=== PATIENT | male | born 1980 | race Caucasian/White ===

== ENCOUNTER 2020-06-18 15:09 | Emergency (ER) | payer OTHER, SELFPAY ==
[2020-06-18 15:21] VITALS: BP 125/74; PULSE 82; RESP 18; TEMP 36.3; O2SAT 99
--- NOTE | 2020-06-18 15:35 | ED.GENADULT ---
HPI - General Adult General Chief complaint: Skin/Abscess/Foreign Body Stated complaint: Sunburn Time Seen by Provider: 06/18/20 15:35 Source: patient and RN notes reviewed Mode of arrival: ambulatory Limitations: no limitations History of Present Illness HPI narrative: 39-year-old male presents with complaints of diffused sunburn to upper and lower extremities and anterior and posterior trunk for the past 4 days. Blisters. No drainage. No loss of mobility. No foreign body sensation. Denies fever or chills. Tolerating po liquids well. No throat or tongue swelling. The patient reports he have not been diagnosed with COVID-19. The patient reports he is not waiting for the results of a COVID-19 lab test. The patient reports he do not have fever, chills, weakness, fatigue, myalgia, or facial swelling. The patient reports he do not have a new or worsening cough or shortness of breath. Denies chest pain. The patient reports he do not have any rhinorrhea, congestion, sore throat, nausea, vomiting, abdominal pain, and diarrhea. Denies recent traveling. Denies concerns for COVID-19 or exposures been home with limited outdoor exposure except for essential household needs, work, and return home. At this time, patient is not suspected of having COVID-19. Some parts of this dictation were generated by voice recognition software and may contain typographical and/or grammatical inaccuracies. Related Data Home Medications Medication Instructions Recorded Confirmed amoxicillin-pot clavulanate 1 tablet PO TID 06/18/20 06/18/20 aspirin 81 mg PO DAILY 06/18/20 06/18/20 diltiazem HCl 180 mg PO DAILY 06/18/20 06/18/20 isosorbide mononitrate 60 mg PO DAILY 06/18/20 06/18/20 lisinopril 40 mg PO DAILY 06/18/20 06/18/20 metoprolol succinate 50 mg PO DAILY 06/18/20 06/18/20 montelukast 10 mg PO DAILY 06/18/20 06/18/20 montelukast 10 mg PO HS 06/18/20 06/18/20 nortriptyline 25 mg PO DAILY 06/18/20 06/18/20 pantoprazole 40 mg PO DAILY 06/18/20 06/18/20 prednisone 10 mg PO DIRECTED 06/18/20 06/18/20 rosuvastatin 40 mg PO HS 06/18/20 06/18/20 ticagrelor [Brilinta] 60 mg PO BID 06/18/20 06/18/20 Allergies Allergy/AdvReac Type Severity Reaction Status Date / Time ibuprofen Allergy Mild Dyspnea / Verified 06/18/20 15:31 SOB morphine Allergy Unknown Unverified 06/18/20 15:31 Review of Systems Review of Systems: Narrative: CONSTITUTIONAL: Denies fever, chills, sweats. EYES: Denies visual changes, redness, discharge. ENT: Denies rhinorrhea, congestion, sore throat, otalgia. CARDIOVASCULAR: Denies chest pain, palpitations, edema. RESPIRATORY: Denies dyspnea, wheezing, cough. GASTROINTESTINAL: Denies abdominal pain, nausea, vomiting, diarrhea. GENITOURINARY: Denies dysuria, hematuria, abnormal discharge. SKIN: Denies rash or itching. Complains of diffused sunburn to upper and lower extremities and anterior and posterior trunk, blisters to RT shoulder and LLE. No drainage. MUSCULOSKELETAL: Denies acute back pain, joint pain, or myalgia. NEUROLOGIC: Denies numbness or focal weakness. PSYCHIATRIC: Denies anxiety or depression. All other systems reviewed are negative, except as documented in HPI and below. [facility] Past Medical History Medical History (Updated 06/19/20 @ 00:00 by Background Daemon) Chest pain Coronary artery disease History of gastroesophageal reflux (GERD) Hypercholesteremia Hypertension Surgical History Surgical History (Updated 06/18/20 @ 16:25 by JAX Rangel) History of cardiac catheterization History of coronary artery stent placement History of craniotomy 04/2020 Family History Family History (Updated 06/18/20 @ 16:23 by JAX Rangel) Father Hypertension Mother Hypertension Social History Social History (Updated 06/18/20 @ 16:23 by JAX Rangel) Smoking status: Never smoker Tobacco type: cigarettes Second hand tobacco smoke exposure: Yes Alcohol intake:
== END 2020-06-18 15:53 | disposition home or self-care (01) ==
PROVIDERS: Emergency Provider Nurse Practitioner Family
DX: L55.1 Sunburn of second degree (principal); I25.10 Atherosclerotic heart disease of native coronary artery without angina pectoris; I10 Essential (primary) hypertension; Z79.82 Long term (current) use of aspirin
CPT/HCPCS: 99213; G0463

== ENCOUNTER 2020-08-11 20:19 | Observation (INO) | payer OTHER, SELFPAY ==
--- NOTE | ~2020-08-11 | CT_ITS ---
EXAMINATION: CT brain wo con EXAM DATE: 08/12/2020 01:35 INDICATION: Dizziness, headache, nausea and vomiting. History of craniotomy 04/02. TECHNIQUE: Spiral CT of the head was performed without contrast. Axial, coronal and sagittal images were reviewed. The dose-length product (DLP) for this examination was 681.00 mGy-cm. The exposure w as tailored according to patient size, and iterative reconstruction (ASIR) was used as additional dos e reduction technique. Comparison is made to prior examination from 10/15/2015. FINDINGS: Interval partial right mastoidectomy. There is no acute intraparenchymal hemorrhage. No ev idence of intraparenchymal brain mass lesion. No evidence of acute infarction. There is no mass eff ect or midline shift. The ventricles are normal in size. There are no extra-axial collections. The re are no acute calvarial fractures. The orbits are unremarkable. Soft tissue is unremarkable. The visualized sinuses and mastoid air cells are well aerated. IMPRESSION: No acute intracranial findings. Reviewed, dictated and finalized at location A.
--- NOTE | ~2020-08-11 | XR_ITS ---
EXAMINATION: XR chest 2V DATE: 08/11/2020 21:45 INDICATION: Chest pain, nausea and vomiting TECHNIQUE: PA and lateral views of the chest were obtained. COMPARISON: Chest radiograph and CT dated 05/14/2019 FINDINGS: The lungs are clear with no focal airspace opacities, pulmonary edema, pleural effusion or pneumothor ax. The cardiomediastinal silhouette is normal. Coronary artery stenting. Mild S-shaped curvature of the thoracic spine. IMPRESSION: 1. No acute cardiopulmonary disease. Reviewed, dictated and finalized at location A.
[2020-08-11 20:21] VITALS: BP 149/99; PULSE 56; RESP 15; TEMP 36.2; O2SAT 100
--- NOTE | 2020-08-11 20:25 | ECG_ITS ---
Measurements Intervals [place] Rate: 64 P: 19 OR: 172 QRS: -11 QRSD: 92 T: -1 QT: 386 QTc: 398 Interpretive Statements SINUS RHYTHM VOLTAGE CRITERIA FOR LVH BORDERLINE T WAVE ABNORMALITY- INFERIOR LEADS BASELINE ARTIFACT- I, II, AVR, AVL, AVF, V1-V2 BORDERLINE ECG Electronically Signed On 08-11-2020 21:08:39 CDT by Roman Pinzon D.O.
[2020-08-11 20:41] LABS: Basophils Absolute Auto 0.1 K/mm3 (0.0-0.1); Basophils Percent Auto 1.1 % (0.2-1.2); Eosinophils Absolute Auto 0.2 K/mm3 (0-0.3); Hematocrit 43.7 % (42.0-52.0); Hemoglobin 15.2 g/dL (14.0-18.0); Immature Granulocyte Absolute 0.03 K/mm3 (0.00-0.031); Immature Granulocyte Percent A 0.4 % (0-0.5); Lymphocytes Absolute Auto 2.48 K/mm3 (0.9-3.2); Lymphocytes Percent Auto 31.5 % (18.3-44.2); Mean Corpuscular HGB Conc 34.8 g/dl (32-36); Mean Corpuscular Hemoglobin 32.5 pg (26-34); Mean Corpuscular Volume 93.6 fl (80-100); Mean Platelet Volume 8.5 fl (7.4-10.4); Monocytes Absolute Auto 0.6 K/mm3 (0.1-0.6); Neutrophils Absolute Auto 4.6 K/mm3 (1.3-6.7); Platelet Count Result 269 k/mm3 (150-375); Red Blood Count 4.67 M/mm3 (4.6-6.20); White Blood Count 7.9 K/mm3 (4.5-10.0)
[2020-08-11 20:50] LABS: INR 0.9
[2020-08-11 20:51] LABS: Partial Thromboplastin Time 25.9 SECONDS (22.3-36.8)
[2020-08-11 20:52] LABS: Anion Gap 6 mmol/L (8-16); Blood Urea Nitrogen 13 mg/dL (9-20); Calcium 9.3 mg/dL (8.4-10.2); Carbon Dioxide 30 mmol/L (22-30); Chloride 103 mmol/L (98-107); Estimated Glomerular Filt Rate > 60; Glucose 112 mg/dL (75-110); Lipase 120 U/L (23-300); Sodium 139 mmol/L (137-145)
[2020-08-11 21:04] LABS: Troponin I < 0.012 ng/mL (0.000-0.034)
[2020-08-11 23:00] VITALS: BP 151/102; PULSE 68; RESP 19; O2SAT 99
[2020-08-12] VITALS (9 sets, daily range): BP systolic 139–164; BP diastolic 89–109; PULSE 50–74; RESP 16–18; TEMP 36.1–36.4; O2SAT 99–100; BMI 36.1
[2020-08-12 00:49] LABS: Troponin I < 0.012 ng/mL (0.000-0.034)
--- NOTE | 2020-08-12 01:07 | ED.NAVMDI ---
HPI - Nausea/Vomiting/Diarrhea General Chief complaint: Nausea/Vomiting/Diarrhea Stated complaint: Nausea, Vomiting, Dizzy, High blood pressure Time Seen by Provider: 08/12/20 01:00 Source: RN notes reviewed History of Present Illness HPI Narrative: Patient presents emergency department from home for chest pain dizziness. Patient states approximate 5 PM today he developed dizziness with a sensation of the room spinning and felt off balance with the symptoms. He states that time he became nauseous as well as had chest pain over the left side of his chest. He states that the dizziness and nausea resolved after several hours but continued to have left-sided chest pressure. History of cardiac stents placed and is followed by Dr. King. States that he did feel mildly dizzy when coming back to the room today denies any fevers or chills vision changes shortness of breath vomiting or any other symptoms patient states he has been taking all of his regular daily medicines Related Data Home Medications Medication Instructions Recorded Confirmed aspirin 81 mg PO DAILY 06/18/20 06/18/20 diltiazem HCl 180 mg PO DAILY 06/18/20 06/18/20 isosorbide mononitrate 60 mg PO DAILY 06/18/20 06/18/20 lisinopril 40 mg PO DAILY 06/18/20 06/18/20 metoprolol succinate 50 mg PO DAILY 06/18/20 06/18/20 montelukast 10 mg PO HS 06/18/20 06/18/20 pantoprazole 40 mg PO DAILY 06/18/20 06/18/20 prednisone 10 mg PO DIRECTED 06/18/20 06/18/20 rosuvastatin 40 mg PO HS 06/18/20 06/18/20 ticagrelor [Brilinta] 60 mg PO BID 06/18/20 06/18/20 nortriptyline 25 mg PO DAILY 08/12/20 pantoprazole 40 mg PO QAM 08/12/20 rosuvastatin mg 08/12/20 Allergies Allergy/AdvReac Type Severity Reaction Status Date / Time ibuprofen Allergy Mild Dyspnea / Verified 06/18/20 15:31 SOB morphine Allergy Unknown Unverified 06/18/20 15:31 Review of Systems Review of Systems: Narrative: Gen.: Denies fevers or chills Eyes: Denies eye pain or visual change ENT: Denies congestion Respiratory: Denies shortness of breath or cough CV: See HPI GI: Denies abdominal pain emesis or diarrhea, reports nausea denies burning, urgency, frequency or hematuria Musculoskeletal: Denies back pain or muscle pain Neuro: Denies numbness, tingling, weakness or focal weakness, reports dizziness Skin: Denies rash Except as documented, all other systems reviewed and negative [facility] Past Medical History Medical History Chest pain Coronary artery disease History of gastroesophageal reflux (GERD) Hypercholesteremia Hypertension Surgical History Surgical History (Updated 06/18/20 @ 16:25 by JAX Rangel) History of cardiac catheterization History of coronary artery stent placement History of craniotomy 04/2020 Family History Family History (Updated 06/18/20 @ 16:23 by JAX Rangel) Father Hypertension Mother Hypertension Social History Social History Smoking status: Never smoker Tobacco type: cigarettes Second hand tobacco smoke exposure: Yes Alcohol intake: current Substance use: never Gender identity (if verbalized by the patient): Male Exam Narrative: Exam Narrative: APPEARANCE: No acute distress, nontoxic, resting in bed EYES: EOMI, Valarie HEENT: Normocephalic, atraumatic, TMs clear bilaterally, nares patent OMM RESPIRATORY: No respiratory distress Clear to auscultation bilaterally with no rhonchi wheezing or rales. CARDIOVASCULAR: Regular rate and rhythm without murmurs rubs or gallops. Chest: Tender palpation left anterior inferior chest wall ABDOMINAL: Soft, nontender, nondistended, no rebound or guarding MUSCULOSKELETAl: Moves all extremities. No clubbing, cyanosis or edema. NEURO: Awake and alert x 4. Following commands, speech normal, no focal deficits SKIN:: Warm, dry. No rashes lesions or abrasions PSYCHIATRIC: Normal affe
[2020-08-12] MEDS: MECLIZINE HCL 25 MG TABLET PO (01:47)
[2020-08-12] MEDS: ACETAMINOPHEN 500 MG TABLET 1000 MG PO (02:30)
[2020-08-12 03:28] LABS: Troponin I 0.021 ng/mL (0.000-0.034)
--- NOTE | 2020-08-12 05:58 | ADMGEN ---
This patient, Toño Hidalgo, was admitted to IMU Room 232-01. Patient/family oriented to hospital policies and general routines including ID bracelet, bed and alarms, visiting hours, pain management, procedures, bathroom and other care routines, personal items, smoking policy, room service/diet, and visiting hours. Valuables list has been completed. Information on how to activate the Rapid Response Team has been discussed. Patient/Family are encouraged to report perceived risks to care and to ask questions if they do not understand what they are told or what they should do.
--- NOTE | 2020-08-12 10:09 | ECHO_ITS ---
Patient Info Name: Toño Hidalgo Age: 39 years : 1980 Gender: Male Ht: 75 in Wt: 289 lbs BSA: 2.68 m2 HR: 60 bpm BP: 139 / 89 mmHg Heart Rhythm: Sinus Rhythm Technical Quality: Good Exam Date: 08/12/2020 12:10 PM Exam Location: [facility] Patient Status: Inpatient Admit Date: 08/12/2020 Staff Ordering Physician: Gerry King MD Source Water Protection Specialist: Rudy Thorne RDCS Attending Provider: Francisco Fay MD Referring Physician: Christine READ; Exam Type: CA echo dop color flow w con Study Info Indications I25.118 - Atherosclerotic heart disease of [place] coronary artery with other forms of angina pectoris Complete two-dimensional, color flow and Doppler transthoracic echocardiogram is performed with contrast to opacify the left ventricle and to improve the deliniation of the left ventricle endocardial borders. Contrast/Agitated Saline Contrast/Ag. Saline: Definity Amount: 3.00 ml Administered By: Nelly Vail RN Existing IV Access: Yes History/Risk Factors CAD; dizziness, HTN, chest pain. Summary 1. Left ventricular systolic function is normal, estimated at 55-60%. 2. There is mildly increased left ventricular wall thickness. 3. The left ventricular diastolic function is normal. 4. Right atrial chamber dimension is moderately enlarged. 5. There is trace mitral valve regurgitation. 6. There is trace tricuspid valve regurgitation. 7. No pulmonary hypertension, estimated pulmonary arterial systolic pressure is 27 mmHg. 8. Technically difficult study with limited views. Left Ventricle Left ventricular chamber dimension is normal. Left ventricular systolic function is normal, estimated at 55-60%. There is mildly increased left ventricular wall thickness. The left ventricular diastolic function is normal. Right Ventricle Right ventricular chamber dimension is normal. Right ventricular systolic function is normal. Left Atria Left atrial chamber dimension is mildly enlarged. Right Atria Right atrial chamber dimension is moderately enlarged. Aortic Valve The aortic valve is not well visualized. There is no aortic valve stenosis. There is no aortic valve regurgitation. Pulmonic Valve The pulmonic valve is not well visualized. Mitral Valve The mitral valve has normal leaflets. There is trace mitral valve regurgitation. The mitral valve annulus is mildly calcified. Tricuspid Valve The tricuspid valve leaflets are normal. There is trace tricuspid valve regurgitation. No pulmonary hypertension, estimated pulmonary arterial systolic pressure is 27 mmHg. Pericardium/Pleural The pericardium appears normal. There is trivial pericardial effusion. Inferior Vena Cava Normal inferior vena cava with >50% collapse upon inspiration consistent with normal right atrial pressure, 5 mmHg. Aorta The aortic root size at the sinus of Valsalva is normal. Left Ventricular Outflow Tract Name Value Normal LVOT 2D LVOT Diameter 2.28 cm LVOT Doppler LVOT Peak Gradient 4 mmHg
[2020-08-12 11:49] LABS: Troponin I 0.022 ng/mL (0.000-0.034)
--- NOTE | 2020-08-12 12:15 | PM.CNCAR ---
Assessment and Plan Assessment and plan (1) Vertigo: Code(s): R42 - Dizziness and giddiness Status: Acute Assessment and Plan: CT head negative. Symptoms resolved currently consistent with prior vertigo of which he has a history.. Defer to primary service (2) Nausea and vomiting: Code(s): R11.2 - Nausea with vomiting, unspecified Status: Acute Assessment and Plan: Resolved currently possibly related to vertigo sxs, uncontrolled HTN. (3) Chest pain: Code(s): R07.9 - Chest pain, unspecified Status: Acute Assessment and Plan: Somewhat atypical spontaneously resolved, ruled out for [place] with negative serial troponins. CP possibly anxiety related. No acute ischemic changes on EKG. No plans for ischemic workup. Last cath and stress test unremarkable, 05/2019. Continue aggressive medical therapy. Patient stable for discharge from this perspective provided his symptoms remain resolved. Will check 2D Echo given sxs at presentation. Patient will follow up as an outpatient provided no new issues noted on echocardiogram. Recommendations to follow. (4) Uncontrolled hypertension: Code(s): I10 - Essential (primary) hypertension Status: Acute Assessment and Plan: Improved but not ideally controlled. Hesitant to add hydrochlorothiazide given previous patient reported of control blood pressures in the 100-120 systolic range and risk for symptomatic hypotension. Patient would prefer to wait of possible other concerning given his presentation with uncontrolled hypertension. (5) Coronary artery disease: Code(s): I25.10 - Atherosclerotic heart disease of [place] coronary artery without angina pectoris Status: Acute Assessment and Plan: Continue aspirin, Brilinta 60 mg twice daily, Imdur, Rosuvastatin, and Toprol XL. (6) Dyslipidemia: Code(s): E78.5 - Hyperlipidemia, unspecified Status: Acute Assessment and Plan: Continue Rosuvastatin. Goal LDL less than 70. History of Present Illness History of Present Illness Consult date/time: date of service: 08/12/20 12:15 This is a cardiology consultation at the request of Dr. Starks of the Emergency Department for our opinion regarding chest pain and CAD. Requesting physician: Luis M Starks, Consult reason: chest pain and Other Reason For Visit: chest pain, dizziness Narrative: patient is a very pleasant 39-year-old male well known to me with past medical history significant forCAD status post 2.5 x 20 mm drug-eluting stent RCA, 3.5 x 24 mm drug-eluting stent mid LAD 2015, March 2016 2.5 x 12 mm drug-eluting stent proximal portion of major diagonal branch in setting of NSTEMI, patent stents left heart catheterization May 2019 history of chronic recurrent chest pain syndrome ultimately felt to be esophageal inflammation. He has a history of obesity, hypertension, dyslipidemia who was in his usual state of health when yesterday evening while walking up the steps he suddenly became dizzy described as a world spinning around him however consistent with his history of vertigo. He had an ENT surgery in the recent past and felt similarly at that time. he contacted his ENT who when he told that his blood pressure is 170/120 he is advised to contact his terminal gauger. Therefore, the patient contacted me through our emergency exchange to notify via his blood pressure and severe dizziness along with nausea vomiting. He denied chest pain, shortness of breath, headache or vision changes. Given persistence of the symptoms and the fact the patient claimed he did not feel well advised him to present to the ER for evaluation. The symptoms gradually subsided yet he notes as he was walking into the hospital he developed chest pain described as a stabbing sensation in the left chest without radiation giving way to a very mild pressure-like sensation which eventually dissipated. Ruled out for myocard
[2020-08-12] MEDS: PERFLUTREN LIPID MICROSPHERES 1.5 ML VIAL DILUTED TO 10 ML TOTAL VOLUME IV PUSH (12:47)
[2020-08-12] MEDS: ISOSORBIDE MONONITRATE 60 MG TAB.ER.24H PO (16:30)
[2020-08-12] MEDS: lisinopriL 20 MG TABLET 40 MG PO (16:30)
[2020-08-12] MEDS: TICAGRELOR 60 MG TABLET PO (16:30)
[2020-08-12] MEDS: METOPROLOL SUCCINATE EXT REL 50 MG TABCR PO (16:30)
[2020-08-12] MEDS: dilTIAZem HCL CD 180 MG CAP.ER.24H PO (16:31)
--- NOTE | 2020-08-12 16:32 | PM.SD ---
Same Day Admit/Disch: HPI History of Present Illness Chief complaint: chest pain, dizziness Narrative: Toño Hidalgo is a 39 year old male with CAD who presents with complaints of dizziness and chest pain. Patient felt tired yesterday. And in the evening while having a bowel movement, he felt dizzy with room spinning. He was not straining. He was able to walk back to his bed but had to hold onto furniture. He laid down and did feel better. He did not take any medications. His symptoms worsen when he got back up. His blood pressure was 170/120. He had no chest pain or vision changes. No numbness, tingling or weakness in his extremities. He is compliant with his home medications. He did have some nausea with vomiting. He does exercise frequently about 3 days a week and never has chest pain with this aerobic exercise. Patient has a history of recent right partial mastoidectomy. He called his ENT doctor who instructed him to call his vinyl hanger. Landfill Attendant in turn recommended patient go to the ER. Patient brought by private car to the emergency room. Patient was dropped off and when walking to the emergency room developed sharp type chest pain that he rates at 4 to 5/10. This pain felt similar to the time he has had coronary events. No recent stress test or heart catheterization. Last heart catheterization was a year ago. There is no radiation to the chest pain. The chest pain was not pleuritic or palpable. No cough or shortness of breath. No diaphoresis. No new medications. Patient was treated with meclizine and admitted for further care. Currently states his dizziness symptom has resolved. [facility] Past Medical History Medical History (Updated 08/12/20 @ 16:41 by Francisco Fay MD) Coronary artery disease History of gastroesophageal reflux (GERD) Hypercholesteremia Hypertension Surgical History Surgical History History of cardiac catheterization History of coronary artery stent placement History of craniotomy 04/2020 Family History Family History Father Hypertension Mother Hypertension Social History Social History (Updated 08/12/20 @ 16:42 by Francisco Fay MD) Social History: Lives at home with his and 2 children. They have a dog. Lifelong nonsmoker. Drinks 2-3 alcoholic drinks per week. No drug use. Full code. He nominates his to be the individual would make medical decisions for him if he is not able. Smoking status: Never smoker Tobacco type: cigarettes Second hand tobacco smoke exposure: Yes Alcohol intake: never Substance use: never Gender identity (if verbalized by the patient): Male Spiritual care concerns: No Same Day Admit/Disch: Med Pre-admit Medications Home Medications Medication Instructions Recorded Confirmed Type aspirin 81 mg PO DAILY 06/18/20 08/12/20 History diltiazem HCl 180 mg PO DAILY 06/18/20 08/12/20 History isosorbide mononitrate 60 mg PO DAILY 06/18/20 08/12/20 History lisinopril 40 mg PO DAILY 06/18/20 08/12/20 History metoprolol succinate 50 mg PO DAILY 06/18/20 08/12/20 History montelukast 10 mg PO HS 06/18/20 08/12/20 History pantoprazole 40 mg PO DAILY 06/18/20 08/12/20 History ticagrelor [Brilinta] 60 mg PO BID 06/18/20 08/12/20 History rosuvastatin 40 mg PO HS 08/12/20 08/12/20 History Exam Narrative: Exam Narrative: AF 97.6 158/93 71 16 100% ra Gen - well-nourished, well-developed male in no acute respiratory distress who is nontoxic-appearing lying semi recumbent in bed HEENT - normocephalic. Atraumatic. Pupils equal round and reactive. Extraocular motions intact. Sclera clear and anicteric. Nares patent. Oropharynx was clear. No oral lesions. Moist mucous membranes. Tongue was midline. Palate jeri symmetrically. No facial asymmetry. Neck - neck was supple. No dominant adenopathy, thyromegaly
== END 2020-08-12 18:02 | disposition home or self-care (01) ==
LOC: ANHED 08-12 01:27 → ANHIMU 08-12 05:08
PROVIDERS: Emergency Medicine; Internal Medicine Cardiovascular Disease; Admitting Provider Family Medicine; Emergency Provider Emergency Medicine; Visit Provider Internal Medicine
DX: R42 Dizziness and giddiness (principal); R07.9 Chest pain, unspecified; R11.2 Nausea with vomiting, unspecified; Z95.5 Presence of coronary angioplasty implant and graft; I25.10 Atherosclerotic heart disease of native coronary artery without angina pectoris; E78.00 Pure hypercholesterolemia, unspecified; I10 Essential (primary) hypertension; I51.7 Cardiomegaly; E78.5 Hyperlipidemia, unspecified
CPT/HCPCS: 36415; 70450; 71046; 80048; 83690; 84484; 85025; 85610; 85730; 93005; 96374; 99285; A9270; C8929; G0378; Q9957

== ENCOUNTER 2021-03-30 20:30 | Observation (INO) | payer OTHER, SELFPAY ==
[2021-03-30] VITALS (12 sets, daily range): BP systolic 140–158; BP diastolic 75–108; PULSE 67–93; RESP 15–23; TEMP 36.4; O2SAT 94–100
--- NOTE | ~2021-03-30 | XR_ITS ---
EXAMINATION: XR chest 2V DATE: 03/30/2021 20:52 INDICATION: Chest pain TECHNIQUE: PA and lateral views of the chest are obtained. COMPARISON: 08/11/2020 FINDINGS: The lungs are free of acute opacities. There is no pleural effusion or pneumothorax. The ca rdiomediastinal silhouette is normal. The visualized bones and soft tissues are unremarkable. IMPRESSION: 1. No acute cardiopulmonary abnormality. Reviewed, dictated and finalized at location A.
--- NOTE | ~2021-03-30 | CT_ITS ---
EXAMINATION: CTA chest DATE: 03/31/2021 00:42 INDICATION: Chest pain. TECHNIQUE: Computed tomographic angiography (CTA) of the chest was performed with 100 mL Omnipaque-35 0 intravenous contrast. Automated exposure control and iterative reconstruction technique were employ ed. The dose-length product was 1064.01 mGy-cm. Maximum intensity projection 3D-reconstructions of th e aorta and other arteries were constructed by the technologist on a separate workstation. COMPARISON: Chest CT 05/14/2019 FINDINGS: The lungs demonstrate minimal atelectasis. There is a stable 4 mm nodule in left upper lobe , likely benign. There are three 3-4 mm nodules in left lower lobe without change, likely benign. No pleural effusion. The heart size is normal. There are coronary artery calcifications. No pericardial effusion. Thoracic aorta is normal. No aneurysm or dissection. There is a small sliding hiatal hernia . The bones are unremarkable. IMPRESSION: 1. Normal aorta. No aneurysm or dissection. 2. Small sliding hiatal hernia. Reviewed, dictated and finalized at location A.
--- NOTE | 2021-03-30 20:33 | ECG_ITS ---
Measurements Intervals [place] Rate: 71 P: 13 NC: 173 QRS: 2 QRSD: 92 T: 28 QT: 352 QTc: 383 Interpretive Statements SINUS RHYTHM INCOMPLETE RIGHT BUNDLE BRANCH BLOCK VOLTAGE CRITERIA FOR LVH BORDERLINE ECG Electronically Signed On 03-31-2021 6:37:29 CDT by Roman Pinzon D.O.
[2021-03-30 20:56] LABS: Basophils Absolute Auto 0.1 K/mm3 (0.0-0.1); Basophils Percent Auto 0.8 % (0.2-1.2); Eosinophils Absolute Auto 0.1 K/mm3 (0-0.3); Eosinophils Percent Auto 1.6 % (0-4.4); Hemoglobin 15.3 g/dL (14.0-18.0); Immature Granulocyte Absolute 0.05 K/mm3 (0.00-0.031); Immature Granulocyte Percent A 0.6 % (0-0.5); Lymphocytes Absolute Auto 2.33 K/mm3 (0.9-3.2); Lymphocytes Percent Auto 26.2 % (18.3-44.2); Mean Corpuscular Hemoglobin 31.7 pg (26-34); Mean Corpuscular Volume 93.4 fl (80-100); Mean Platelet Volume 8.7 fl (7.4-10.4); Monocytes Absolute Auto 0.8 K/mm3 (0.1-0.6); Monocytes Percent Auto 8.4 % (2.6-8.5); Neutrophils Absolute Auto 5.6 K/mm3 (1.3-6.7); Neutrophils Percent Auto 62.4 % (45.5-73.1); Platelet Count Result 246 k/mm3 (150-375); Red Blood Count 4.82 M/mm3 (4.6-6.20); Red Cell Distribution Width 11.9 % (11.5-14.5); White Blood Count 8.9 K/mm3 (4.5-10.0)
[2021-03-30 21:07] LABS: INR 0.8; Prothrombin Time 12.1 Seconds (11.1-14.7)
[2021-03-30 21:08] LABS: Anion Gap 5 mmol/L (8-16); Blood Urea Nitrogen 14 mg/dL (9-20); Calcium 9.3 mg/dL (8.4-10.2); Carbon Dioxide 29 mmol/L (22-30); Chloride 104 mmol/L (98-107); Estimated CRCL calculation 118 ml/min; Estimated Glomerular Filt Rate > 60; Glucose 106 mg/dL (75-110); Partial Thromboplastin Time 25.2 SECONDS (22.3-36.8); Potassium 3.6 mmol/L (3.4-5.0); Sodium 138 mmol/L (137-145)
[2021-03-30 21:20] LABS: Troponin I < 0.012 ng/mL (0.000-0.034)
--- NOTE | 2021-03-30 22:19 | ED.CHESTPAIN ---
HPI - Chest Pain General Chief Complaint: Chest Pain Stated Complaint: chest pain Time Seen by Provider: 03/30/21 21:56 Source: patient and RN notes reviewed Mode of arrival: ambulatory Limitations: no limitations History of Present Illness HPI narrative: This is a 40 year old male with history of hypertension, CAD s/p stents 2015 who presents for evaluation of midsternal chest pressure. He states he developed midsternal chest pressure at 1 pm today. His pain has been constant and he describes as pressure. This pressure radiates to his back. His pain waxes and wanes. He reports shortness of breath. He denies cough, nausea, vomiting fever or chills. He states this pain feels similar to when he had to have stents. His cardiac care nurse is Dr. King. Related Data Home Medications Medication Instructions Recorded Confirmed Brilinta 60 mg PO BID 06/18/20 08/12/20 aspirin 81 mg PO DAILY 06/18/20 08/12/20 diltiazem HCl 180 mg PO DAILY 06/18/20 08/12/20 isosorbide mononitrate 60 mg PO DAILY 06/18/20 08/12/20 lisinopril 40 mg PO DAILY 06/18/20 08/12/20 metoprolol succinate 50 mg PO DAILY 06/18/20 08/12/20 montelukast 10 mg PO HS 06/18/20 08/12/20 pantoprazole 40 mg PO DAILY 06/18/20 08/12/20 rosuvastatin 40 mg PO HS 08/12/20 08/12/20 Allergies Allergy/AdvReac Type Severity Reaction Status Date / Time ibuprofen Allergy Mild Dyspnea / Verified 03/30/21 21:34 SOB morphine Allergy Unknown Dyspnea / Verified 03/30/21 21:34 SOB Review of Systems Review of Systems: All systems reviewed & are unremarkable except as noted in HPI and below PMFSH Past Medical History Medical History Coronary artery disease History of gastroesophageal reflux (GERD) Hypercholesteremia Hypertension Surgical History Surgical History History of cardiac catheterization History of coronary artery stent placement History of craniotomy 04/2020 Family History Family History Father Hypertension Mother Hypertension Social History Social History (Updated 08/12/20 @ 16:42 by Francisco Fay MD) Social History: Lives at home with his and 2 children. They have a dog. Lifelong nonsmoker. Drinks 2-3 alcoholic drinks per week. No drug use. Full code. He nominates his to be the individual would make medical decisions for him if he is not able. Smoking status: Never smoker Tobacco type: cigarettes Second hand tobacco smoke exposure: Yes Alcohol intake: never Substance use: never Gender identity (if verbalized by the patient): Male Spiritual care concerns: No Exam Const: General: no acute distress and alert Orientation/consciousness: patient oriented x3 Eyes: EOM: EOMs intact bilaterally Cardio: Rate: regular rate Rhythm: regular rhythm Heart sounds: no murmurs GI: GI Palp: Yes Soft to palpation, No Tenderness to palpation present (GI) and No Guarding due to palpation present (GI) Auscultation: normal bowel sounds Neuro: General: patient oriented x3, moves all extremities and CN's II-XI intact bilaterally Psych: Mental Status: mental status grossly normal Affect: normal affect Course Reevaluation(s) Reevaluation #1: I discussed with patient CT results. He is resting in bed in no acute distress. He has no complaints. Date: 03/31/21 Time: 02:25 Consultations Consultation #1: I Discussed case with Dr. Gallardo. She accepts patient observation for M I rule out. Date: 03/31/21 Time: 02:25 Vital Signs Vital signs: Vital Signs Temperature 97.5 F L 03/30/21 20:38 Pulse Rate 75 03/30/21 20:38 Respiratory Rate 18 03/30/21 20:38 Blood Pressure 153/108 H 03/30/21 20:38 Pulse Oximetry 100 03/30/21 20:38 Temperature 97.5 F L 03/30/21 23:32 Pulse Rate 71 03/31/21 00:46 Respiratory Rate 21 H 03/31/21 00
--- NOTE | 2021-03-30 22:20 | ECG_ITS ---
Measurements Intervals [place] Rate: 67 P: 33 [place]: 166 QRS: 1 QRSD: 102 T: 25 QT: 377 QTc: 401 Interpretive Statements SINUS RHYTHM INCOMPLETE RIGHT BUNDLE BRANCH BLOCK VOLTAGE CRITERIA FOR LVH BORDERLINE ECG Electronically Signed On 03-31-2021 6:38:07 CDT by Roman Pinzon D.O.
[2021-03-30] MEDS: ASPIRIN 81 MG CHEWABLE TABLET 324 MG PO (22:39)
[2021-03-30] MEDS: NITROGLYCERIN SL 0.4 MG TABLET SUBLINGUAL (22:40)
--- NOTE | 2021-03-30 22:46 | PC.NURSE ---
Patient received second dose of 0.4mg Nitro SL at this time per ED protocol. Patient reports pain is down to 3/10 from a 6/10. Reports headache.
--- NOTE | 2021-03-30 23:01 | PC.NURSE ---
Patient states pain was relieved after second dose of Nitro.
[2021-03-30 23:41] LABS: D Dimer 0.28 ug/mL (<0.48)
[2021-03-31] VITALS (20 sets, daily range): BP systolic 126–160; BP diastolic 70–100; PULSE 62–87; RESP 9–22; TEMP 36.5–36.6; O2SAT 94–98; BMI 38.9
[2021-03-31 00:12] LABS: Troponin I < 0.012 ng/mL (0.000-0.034)
[2021-03-31] MEDS: NITROGLYCERIN OINTMENT 1 INCH DOSE TRANSDERM (00:45)
--- NOTE | 2021-03-31 03:00 | PC.NURSE ---
Per EDEvi Kearney, no dose of Labetalol needed.
[2021-03-31 03:32] LABS: Troponin I < 0.012 ng/mL (0.000-0.034)
--- NOTE | 2021-03-31 10:03 | PM.CNCAR ---
Assessment and Plan Assessment and plan (1) Chest pain: Code(s): R07.9 - Chest pain, unspecified Status: Acute Assessment and Plan: Occurring at rest, constant for several hours without ischemic EKG changes and negative serial troponins but improved with nitroglycerin. No exacerbation with activity as he reports similar to prior anginal chest pain symptoms. No obstructive disease on left heart catheterization 2018. He is not interested in pursuing ischemic evaluation at this time and wishes to adjust medications even if related to obstructive CAD. As such he would prefer to avoid noninvasive stress testing at this time as well. He is currently asymptomatic without evidence of myocardial infarction. His chest pain syndrome in the past has been quite complicated with noncardiac contribution overlapping with ischemic sounding symptoms. Increase Imdur to 90 mg daily. Increase diltiazem 240 mg daily. On one occasion in the recent past patient presented with uncontrolled hypertension with associated chest pain improved with control of his blood pressure. In may be the case his blood pressure has been more elevated at times and he is aware. Nonetheless, will observe tolerance with escalation of antianginal therapy with an accordant improvement in blood pressure control. Patient verbalized understanding and agreed with plan of care. Telemetry unremarkable. Provided patient has no recurrent symptoms with ambulation, tolerates adjustment medical therapy he may be discharged home to follow up with me as an outpatient in the next 2 weeks. Avoid overly strenuous activity. Notify the office immediately should he have recurrent symptoms and or if severe and unrelenting present to nearest ER via EMS. We discussed additional ischemic workup if he has recurrent symptoms or new concerns. Patient agrees with this plan but understands he may have more symptoms in the near future. Patient also has a history of GERD on chronic Protonix 40 mg daily. He states the symptoms are different than his prior GERD and feels this has been under good control of late. Provided patient is feeling well and asymptomatic disposition per hospitalist service. Recommendations to follow should have recurrent chest pain. (2) Coronary artery disease: Code(s): I25.10 - Atherosclerotic heart disease of [place] coronary artery without angina pectoris Status: Acute Assessment and Plan: As above. Continue aggressive medical therapy. He remains on dual antiplatelet therapy given multiple previous stents and prior NSTEMI. Escalate antianginal therapy. Continue statin therapy. (3) Uncontrolled hypertension: Code(s): I10 - Essential (primary) hypertension Status: Acute Assessment and Plan: Improved. As above, increase Imdur and diltiazem as tolerated. (4) Dyslipidemia: Code(s): E78.5 - Hyperlipidemia, unspecified Status: Acute Assessment and Plan: Rosuvastatin 40 mg at bedtime. History of Present Illness History of Present Illness Consult date/time: Date service: 03/31/21 10:03 Cardiology consultation at the request of Dr. Kearney of the [facility] Emergency Department for our opinion regarding chest pain and history of CAD. Requesting physician: Gayle Kearney MD Consult reason: chest pain Reason For Visit: chest pain Narrative: Patient is a very pleasant 40-year-old male well known to me with a past medical history significant for CAD and remote myocardial infarction status post 2.5 x 20 mm drug-eluting stent RCA, 3.5 x 24 mm drug-eluting stent mid LAD 2015, March 2016 2.5 x 12 mm drug-eluting stent proximal portion of major diagonal branch in setting of NSTEMI He had patent stents on left heart catheterization May 2019 and a history of chronic recurrent chest pain syndrome ultimately felt to be esophageal inflammation. He has a history of obesity, hypertension, dyslipidemia who was in his us
[2021-03-31] MEDS: ASPIRIN 81 MG CHEWABLE TABLET PO (10:53)
[2021-03-31] MEDS: lisinopriL 20 MG TABLET 40 MG PO (10:54)
[2021-03-31] MEDS: PANTOPRAZOLE 40 MG TABLET PO (10:54)
[2021-03-31] MEDS: METOPROLOL SUCCINATE EXT REL 50 MG TABCR PO (10:54)
[2021-03-31] MEDS: ISOSORBIDE MONONITRATE 30 MG TAB.ER.24H 90 MG PO (10:55)
[2021-03-31] MEDS: TICAGRELOR 60 MG TABLET PO (10:55)
--- NOTE | 2021-03-31 18:26 | PM.SD2 ---
Same Day Admit/Disch: HPI History of Present Illness Chief complaint: chest pain Narrative: Toño Hidalgo is a 40 year old male admitted with chest pain pain in the center of the chest radiating to his back. 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 Came to hospital for evaluation. Troponin x3 are negative. Pt feels much better. Bp slightly high on admission, stable now. Pt denies missing medications.Pt responded to NTG. Pt seen by cardiology had Diltazem increased adviced to watch over his BP better. [facility] Past Medical History Medical History Coronary artery disease History of gastroesophageal reflux (GERD) Hypercholesteremia Hypertension Surgical History Surgical History History of cardiac catheterization History of coronary artery stent placement History of craniotomy 04/2020 Family History Family History Father Heart valve problem Malignant neoplasm of prostate Cerebrovascular accident Mother Hypertension Social History Social History Social History: Lives at home with his and 2 children. They have a dog. Lifelong nonsmoker. Drinks 2-3 alcoholic drinks per week. No drug use. Full code. He nominates his to be the individual would make medical decisions for him if he is not able. Smoking status: Never smoker Tobacco type: cigarettes Second hand tobacco smoke exposure: Yes Alcohol intake: current Drinks per week: 3 Substance use: never Substance use type: does not use Gender identity (if verbalized by the patient): Male Sexual Orientation (if Verbalized by the Patient): Straight or Heterosexual Spiritual care concerns: No Same Day Admit/Disch: Med Pre-admit Medications Home Medications Medication Instructions Recorded Confirmed Type Brilinta 60 mg PO BID 06/18/20 03/31/21 History aspirin 81 mg PO DAILY 06/18/20 03/31/21 History isosorbide mononitrate 60 mg PO DAILY 06/18/20 03/31/21 History lisinopril 40 mg PO DAILY 06/18/20 03/31/21 History metoprolol succinate 50 mg PO DAILY 06/18/20 03/31/21 History montelukast 10 mg PO HS 06/18/20 03/31/21 History pantoprazole 40 mg PO DAILY 06/18/20 03/31/21 History rosuvastatin 40 mg PO HS 08/12/20 03/31/21 History diltiazem HCl 240 mg PO DAILY #30 cap 03/31/21 Rx nortriptyline 25 mg PO HS 03/31/21 03/31/21 History Exam Const: General: well developed Nutritional Appearance: well nourished HENMT: Head: normocephalic Eyes: General: appearance normal, both eyes and all related structures Pupils: Equal, round and reactive pupils present Neck: Neck: supple Chest: Chest palpation & inspection: normal inspection of the chest Resp: Effort & Inspection: normal respiratory effort Auscultation: clear to auscultation bilaterally Cardio: Jugular venous distension: no JVD Rhythm: regular rhythm Heart sounds: S1 normal heart sound present and S2 normal heart sound present GI: Inspection: normal to inspection GI Palp: No abdominal tenderness, Yes Soft to palpation and No Tenderness to palpation present (GI) Auscultation: normal bowel sounds : General: Yes no CVA tenderness Back/Spine/Pelvis: Back: no CVA tenderness Skin: General skin exam: normal color and dry skin Neuro: Cranial nerves: Yes CN's II-XII intact bilaterally and Yes Equal, round and reactive pupils present Cognition (Neuro): normal cognition Speech: normal speech Motor exam (neuro): 5/5 motor strength present throughout Extrem: General: normal to inspection Psych: Appearance: grossly normal Mental Status: mental status grossly normal DS: Data Data Completed and Pending Labs on day of discharge: Labs from last 24 hours 03/31/21 03/30/21 03/30/21 02:45 23:41 20:48 WBC RBC Hgb Hct MCV MCH MCHC RDW
== END 2021-03-31 12:38 | disposition home or self-care (01) ==
LOC: ANHED 03-31 02:30 → ANHICU 03-31 12:06
PROVIDERS: Emergency Medicine; Admitting Provider Internal Medicine; Emergency Provider General Practice; Visit Provider Family Medicine
DX: R07.9 Chest pain, unspecified (principal); I10 Essential (primary) hypertension; I25.10 Atherosclerotic heart disease of native coronary artery without angina pectoris; R06.02 Shortness of breath; K21.9 Gastro-esophageal reflux disease without esophagitis; I25.2 Old myocardial infarction; E78.5 Hyperlipidemia, unspecified; E66.9 Obesity, unspecified; Z95.5 Presence of coronary angioplasty implant and graft; Z68.38 Body mass index [BMI] 38.0-38.9, adult
CPT/HCPCS: 36415; 71046; 71275; 80048; 84484; 85025; 85380; 85610; 85730; 93005; 99285; A9270; G0378; J0131; Q9967

== ENCOUNTER 2021-11-03 08:29 | Outpatient (CLI) | payer OTHER, SELFPAY ==
--- NOTE | ~2021-11-03 | XR_ITS ---
EXAMINATION: XR chest 2V 11/03/2021 08:56 INDICATION: Extremity swelling. Hypertension. Edema. PROCEDURE: 2 view chest COMPARISON: Comparison to multiple prior studies sequentially, with oldest reviewed study dated 07/31. FINDINGS: The lungs are clear. The cardiomediastinal silhouette is within normal limits. There are no pleural effusions. There is no pneumothorax suspected. IMPRESSION: 1: NO ACUTE CARDIOPULMONARY DISEASE. Reviewed, dictated and finalized at location A. [facility]
[2021-11-03 10:01] LABS: Alanine Aminotransferase 59 U/L (4-50); Albumin Level 4.6 g/dL (3.5-5.1); Alkaline Phosphatase 66 U/L (38-126); Anion Gap 8 mmol/L (8-16); Aspartate Amino Transferase 44 U/L (17-59); Bilirubin,Total 0.8 mg/dL (0.2-1.3); Blood Urea Nitrogen 13 mg/dL (9-20); Calcium 9.5 mg/dL (8.4-10.2); Carbon Dioxide 26 mmol/L (22-30); Chloride 101 mmol/L (98-107); Estimated Glomerular Filt Rate > 60; Glucose 100 mg/dL (65-110); Potassium 4.2 mmol/L (3.4-5.0); Sodium 135 mmol/L (137-145)
[2021-11-03 10:05] LABS: NT Pro B Type Natriuretic Pept 58 pg/mL (5-100)
== END 2021-11-03 08:30 | disposition home or self-care (01) ==
PROVIDERS: Visit Provider Nurse Practitioner Adult Health
DX: I25.10 Atherosclerotic heart disease of native coronary artery without angina pectoris (principal); R60.0 Localized edema; R03.0 Elevated blood-pressure reading, without diagnosis of hypertension
CPT/HCPCS: 36415; 71046; 80053; 83880; 85025

== ENCOUNTER 2021-11-20 20:59 | Emergency (ER) | payer OTHER, SELFPAY ==
[2021-11-20 21:14] VITALS: BP 150/80; PULSE 88; RESP 20; TEMP 36.6; O2SAT 98
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
[2021-11-20 21:35] VITALS: BP 149/80; PULSE 89; RESP 19; TEMP 37.2; O2SAT 99
== END 2021-11-20 21:38 | disposition home or self-care (01) ==
PROVIDERS: Emergency Provider Emergency Medicine
DX: T23.051A Burn of unspecified degree of right palm, initial encounter (principal); X12.XXXA Contact with other hot fluids, initial encounter
CPT/HCPCS: 99283

== ENCOUNTER → 2022-03-16 11:07 | Outpatient (CLI) | payer OTHER, SELFPAY ==
--- NOTE | ~2022-03-16 | XR_ITS ---
EXAMINATION: XR lumbar spine 2-3V DATE: 03/16/2022 11:53 INDICATION: Lumbar radiculopathy, low back pain TECHNIQUE: Anteroposterior and lateral views of the lumbar spine, and cone-down lateral view of the l umbosacral junction were obtained. COMPARISON: None. FINDINGS: There is no fracture, dislocation, or subluxation. The vertebral body heights, alignment, a nd intervertebral disc spaces are normal. The paravertebral soft tissues are unremarkable. IMPRESSION: 1. Unremarkable lumbar spine radiographs. Reviewed, dictated and finalized at location A.
== END ==
PROVIDERS: PCP Nurse Practitioner
DX: M54.2 Cervicalgia (principal)
CPT/HCPCS: 72100

== ENCOUNTER → 2022-03-16 11:10 | Outpatient (CLI) | payer OTHER, SELFPAY ==
--- NOTE | ~2022-03-16 | XR_ITS ---
EXAMINATION: XR hip LT min 2V DATE: 03/16/2022 11:53 INDICATION: Left hip pain. TECHNIQUE: 2 views of left hip were obtained. COMPARISON: None. FINDINGS: Bone alignment is normal. No fracture. There is a benign bone island in left parasymphyseal pubis. There is decreased femoral head/neck offset, which may be seen with femoral acetabular imping ement. Left hip joint space is well maintained. IMPRESSION: 1. No arthritis. Reviewed, dictated and finalized at location B. IMPRESSION: 1. No arthritis.
== END ==
PROVIDERS: PCP Nurse Practitioner; Visit Provider Nurse Practitioner
DX: M25.552 Pain in left hip (principal); M54.16 Radiculopathy, lumbar region
CPT/HCPCS: 73502

== ENCOUNTER → 2022-03-31 12:35 | Outpatient (CLI) | payer OTHER, SELFPAY ==
--- NOTE | ~2022-03-31 | XR_ITS ---
EXAMINATION: XR chest 2V DATE: 03/31/2022 13:27 INDICATION: Cough. TECHNIQUE: Frontal and lateral views of the chest were obtained. COMPARISON: Chest 2 views 11/03/2021, chest CT 03/31/2021 FINDINGS: The chest demonstrates clear lungs without pneumonia, pleural effusion, or pneumothorax. Th e heart size is normal. IMPRESSION: 1. No acute cardiopulmonary disease. Reviewed, dictated and finalized at location B.
== END ==
PROVIDERS: PCP Nurse Practitioner; Visit Provider Nurse Practitioner
DX: R05.9 Cough, unspecified (principal)
CPT/HCPCS: 71046

== ENCOUNTER 2022-04-02 13:54 | Outpatient (CLI) | payer OTHER, SELFPAY ==
--- NOTE | ~2022-04-02 | CT_ITS ---
EXAMINATION: CT diagnostic chest w con DATE: 04/02/2022 14:25 INDICATION: Cough TECHNIQUE: Computed tomography (CT) of the chest was performed without intravenous contrast. The dose -length product was 696.23 mGy-cm. COMPARISON: 03/31/2021 FINDINGS: Heart size normal. No significant vascular abnormality. No evidence for aortic aneurysm. No significant pleural or pericardial effusion. There is coronary atherosclerosis. Fatty infiltration o f the liver. No thoracic lymphadenopathy. No endobronchial lesions. No pneumothorax. There is a 2-3 m m left upper lobe nodule, likely benign, image 27. There is a 2 mm right lower lobe nodule, image 61. No acute osseous abnormality. No focal airspace di sease. IMPRESSION: 1. No acute cardiopulmonary disease. 2: Small pulmonary nodules measuring 3 mm or less, likely benign. Recommend follow-up low dose CT est in 12 months. Reviewed, dictated and finalized at location B. IMPRESSION: 1. No acute cardiopulmonary disease. 2: Small pulmonary nodules measuring 3 mm or less, likely benign. Recommend fo llow-up low dose CT chest in 12 months.
[2022-04-02 14:20] LABS: Estimated Glomerular Filt Rate > 60
== END 2022-04-02 13:55 | disposition home or self-care (01) ==
PROVIDERS: PCP Nurse Practitioner; Visit Provider Nurse Practitioner
DX: R05.9 Cough, unspecified (principal); R91.8 Other nonspecific abnormal finding of lung field
CPT/HCPCS: 71260; Q9967

== ENCOUNTER → 2022-05-07 12:41 | Outpatient (CLI) | payer OTHER, SELFPAY ==
--- NOTE | ~2022-05-07 | MR_ITS ---
EXAMINATION: MR lumbar spine wo/w con DATE: 05/07/2022 13:35 INDICATION: Lumbar radiculopathy TECHNIQUE: Magnetic resonance imaging (MRI) of the lumbar spine was performed without and with 20 mL Multihance intravenous contrast. Sequences included sagittal T2-weighted FSE, sagittal T2-weighted FS FSE, and sagittal and axial T1-weighted FSE. Postcontrast sequences included axial T2-weighted FSE, sagittal T1-weighted FSE, and axial and sagittal T1-weighted FS FSE. COMPARISON: None FINDINGS: Alignment is normal. Vertebral body heights are normal. S1 hemangioma. Otherwise normal marrow signal . Disc desiccation and minimal disc height loss at L4-L5. Annular fissure at L5-S1. The conus medulla ris terminates at L1-L2. There is normal signal in the caudal spinal cord. Paravertebral soft tissues are unremarkable. No abnormally enhancing lesions identified. The following disc levels are specific ally discussed: T12-L1 through L3-L4: The disc does not extend beyond the endplate margin. There is mild bilateral fa cet joint osteoarthritis. There is no neural foraminal stenosis. There is no central canal stenosis. L4-L5: Disc is minimally bulging with superimposed small left foraminal zone disc protrusion. There i s mild bilateral facet joint osteoarthritis. There is mild left and minimal right neural foraminal st enosis. There is no central canal stenosis. L5-S1: Disc is minimally bulging with annular fissure and small right foraminal zone disc protrusion. There is mild to moderate bilateral facet joint osteoarthritis. There is mild bilateral neural ahsan inal stenosis. There is no central canal stenosis. IMPRESSION: 1. Minimal to mild lower lumbar predominant spondylosis. Reviewed, dictated and finalized at location B.
[2022-05-07 13:11] LABS: Estimated Glomerular Filt Rate > 60
== END ==
PROVIDERS: PCP Nurse Practitioner; Visit Provider Nurse Practitioner
DX: M54.42 Lumbago with sciatica, left side (principal); M47.26 Other spondylosis with radiculopathy, lumbar region
CPT/HCPCS: 72158; A9577

== ENCOUNTER 2022-05-31 16:44 | Emergency (ER) | payer OTHER, SELFPAY ==
--- NOTE | ~2022-05-31 | XR_ITS ---
EXAMINATION: XR chest 1V portable Exam Date/Time: 05/31/2022 14:35 CDT HISTORY: weakness and sob Comparison: 03/31/2022. RESULT: Lines, tubes, and devices: None. Lungs and pleura: Clear. Cardiomediastinal silhouette: Stable cardiomediastinal silhouette. Other: No acute osseous or upper abdominal finding. IMPRESSION: No acute cardiopulmonary process. Reviewed, dictated and finalized at location K.
--- NOTE | ~2022-05-31 | CT_ITS ---
EXAMINATION: CT brain wo con DATE: 05/31/2022 17:43 INDICATION: CAM @ top of skull after fall . TECHNIQUE: Computed tomography (CT) of the head was performed without intravenous contrast. The mA wa s adjusted according to patient size. Iterative reconstruction technique was employed. The dose-lengt h product was 681.00 mGy-cm. COMPARISON: 08/12/2020 FINDINGS: No acute intracranial hemorrhage or extra-axial fluid collection. No hydrocephalus, mass, or herniation. No acute ischemic infarct. Unremarkable dural venous sinus attenuation. No acute osseous abnormality. The aerated spaces are clear. Prior right mastoid surgery. IMPRESSION: No acute intracranial process. Reviewed, dictated and finalized at location K.
[2022-05-31 16:56] VITALS: BP 153/107; PULSE 72; RESP 18; TEMP 36.5; O2SAT 98
--- NOTE | 2022-05-31 17:20 | ECG_ITS ---
Measurements Intervals [place] Rate: 67 P: -2 MD: 175 QRS: -14 QRSD: 94 T: 3 QT: 365 QTc: 387 Interpretive Statements SINUS RHYTHM INCOMPLETE RIGHT BUNDLE BRANCH BLOCK VOLTAGE CRITERIA FOR LVH BORDERLINE T WAVE ABNORMALITY- INFERIOR LEADS BORDERLINE ECG Electronically Signed On 05-31-2022 18:58:30 CDT by Roman Pinzon D.O.
--- NOTE | 2022-05-31 17:20 | ED.HEATRA ---
HPI - Head Injury General Chief complaint: Head Injury Stated complaint: head injury, nausea, confusion Time Seen by Provider: 05/31/22 16:48 Source: patient and RN notes reviewed Mode of arrival: wheelchair Limitations: no limitations History of Present Illness MD Complaint: head injury and fall Onset (ago): hour(s) (2) Mechanism of Injury: fall Place: home Loss of Consciousness: no Location of injury: occipital Severity: mild Severity scale (1-10): 4 Quality: dull and aching Other Injuries: none Context: on aspirin and other anticoagulant use Related Data Home Medications Medication Instructions Recorded Confirmed aspirin 81 mg chewable tablet 81 mg PO DAILY 06/18/20 05/31/22 isosorbide mononitrate 60 mg 60 mg PO DAILY 06/18/20 05/31/22 tablet,extended release 24 hr lisinopril 40 mg tablet 40 mg PO DAILY 06/18/20 05/31/22 metoprolol succinate 50 mg 50 mg PO DAILY 06/18/20 05/31/22 tablet,extended release 24 hr montelukast 10 mg tablet 10 mg PO HS 06/18/20 05/31/22 pantoprazole 40 mg tablet,delayed 40 mg PO DAILY 06/18/20 05/31/22 release rosuvastatin 40 mg tablet 40 mg PO HS 08/12/20 05/31/22 nortriptyline 25 mg capsule 25 mg PO HS 03/31/21 05/31/22 clopidogrel 75 mg tablet 75 mg PO DAILY 05/31/22 05/31/22 nebivolol 10 mg tablet (Bystolic) 10 mg PO DAILY 05/31/22 05/31/22 Allergies Allergy/AdvReac Type Severity Reaction Status Date / Time ibuprofen Allergy Mild Dyspnea / Verified 05/31/22 17:01 SOB morphine Allergy Unknown Dyspnea / Verified 05/31/22 17:01 SOB Review of Systems Review of Systems: All systems reviewed & are unremarkable except as noted in HPI and below Constitutional: Constitutional: Reports no additional constitutional complaints Eyes: Eyes: Reports no additional eye complaints Comments: head injury ENT: Reports system reviewed and no additional complaints, except as documented Cardiovascular: Cardiovascular: Reports no additional cardiovascular complaints Respiratory: Respiratory: Reports no additional respiratory complaints Gastrointestinal: Gastrointestinal: Reports no additional gastrointestinal complaints Musculoskeletal: Musculoskeletal: Reports no additional musculoskeletal complaints Integumentary/Breasts: Skin/Breast: Reports system reviewed and no additional complaints, except as docu Neurologic: Reports system reviewed and no additional complaints, except as documented Psychiatric: Psychiatric: Reports no additional psychiatric complaints Endocrine: Endocrine: Reports no additional endocrine complaints Hematologic/Lymphatic: Hematologic/Lymphatic: Reports no additional hematologic/lymphatic complaints Allergic/Immunologic: Allergic/Immunologic: Reports no additional allergic/immunologic complaints [facility] Past Medical History Medical History Coronary artery disease Head injury History of gastroesophageal reflux (GERD) Hypercholesteremia Hypertension Surgical History Surgical History History of cardiac catheterization History of coronary artery stent placement History of craniotomy 04/2020 Family History Family History Father Heart valve problem Malignant neoplasm of prostate Cerebrovascular accident Mother Hypertension Social History Social History Social History: Lives at home with his and 2 children. They have a dog. Lifelong nonsmoker. Drinks 2-3 alcoholic drinks per week. No drug use. Full code. He nominates his to be the individual would make medical decisions for him if he is not able. Smoking status: Never smoker Tobacco type: cigarettes Second hand tobacco smoke exposure: Yes Alcohol intake: current Drinks per week: 3 Substance use: never Substance use type: does not use G
[2022-05-31] MEDS: SODIUM CHLORIDE 0.9% IV 500 ML 999 ML IV CONT (18:00)
[2022-05-31] MEDS: cloNIDine HCL 0.2 MG TABLET PO (18:02)
[2022-05-31 18:05] LABS: Basophils Absolute Auto 0.09 K/mm3 (0.00-0.10); Eosinophils Absolute Auto 0.15 K/mm3 (0.02-0.50); Eosinophils Percent Auto 1.6 % (1.0-6.0); Hematocrit 44.7 % (40.0-54.0); Hemoglobin 15.6 g/dL (14.0-18.0); Immature Granulocyte Absolute 0.08 K/mm3 (0.00-0.00); Immature Granulocyte Percent A 0.9 % (0.0-0.0); Lymphocytes Percent Auto 29.1 % (18.0-42.0); Mean Corpuscular HGB Conc 34.9 g/dL (32.0-36.0); Mean Corpuscular Hemoglobin 31.9 pg (27.0-31.0); Mean Corpuscular Volume 91.4 fL (78.0-102.0); Mean Platelet Volume 8.5 fl (8.7-11.0); Monocytes Absolute Auto 0.84 K/mm3 (0.10-0.90); Monocytes Percent Auto 9.1 % (2.0-11.0); Neutrophils Absolute Auto 5.4 K/mm3 (1.7-7.2); Neutrophils Percent Auto 58.3 % (50.0-70.0); Platelet Count Result 280 K/mm3 (150-420); Red Blood Count 4.89 M/mm3 (4.70-6.10); Red Cell Distribution Width 11.9 % (11.6-14.4); White Blood Count 9.3 K/mm3 (4.8-10.8)
[2022-05-31 18:35] LABS: Alanine Aminotransferase 39 U/L (16-63); Albumin Level 3.9 g/dL (3.4-5.0); Alkaline Phosphatase 87 U/L (46-116); Anion Gap 7 mmol/L (8-16); Aspartate Amino Transferase 20 U/L (15-37); Bilirubin,Total 0.6 mg/dL (0.00-1.00); Blood Urea Nitrogen 15 mg/dL (7-18); Calcium 8.8 mg/dL (8.5-10.1); Carbon Dioxide 28 mmol/L (21-32); Chloride 103 mmol/L (98-108); Estimated Glomerular Filt Rate > 60; Ethanol < 3 mg/dL (0-6); Glucose 80 mg/dL (70-99); INR 0.9; Osmolality Calculated 285 mOsm/kg (285-295); Partial Thromboplastin Time 26.9 SEC (23.90-30.70); Potassium 3.7 mmol/L (3.5-5.1); Prothrombin Time 10.2 Seconds (9.50-12.10); Sodium 138 mmol/L (136-145); Total Protein 7.1 g/dL (6.4-8.2); Troponin I 9.5 ng/L (0.00-60.4)
[2022-05-31 18:42] LABS: Lactic Acid Reflex 0.5 mmol/L (0.4-2.0)
--- NOTE | 2022-05-31 18:42 | PC.NURSE ---
patient ambulatory to bathroom with steady gait.
[2022-05-31 18:54] LABS: Add Urine Microscopic? NO; Appearance Urine Clear (Clear); Bilirubin Urine Negative (Negative); Blood Urine Negative (Negative); Color Urine Light Yellow (Yellow); Glucose Urine UA Negative (Negative); Ketones Urine Negative (Negative); Leukocyte Esterase Ur Negative (Negative); Nitrate Urine Negative (Negative); Protein Urine Negative (Negative)
[2022-05-31 18:59] LABS: Amphetamine Screen Urine Negative (Negative); Barbiturate Screen Urine Negative (Negative); Benzodiazepines Screen Urine Negative (Negative); Cannabinoid Screen Urine Negative (Negative); Cocaine Screen Urine Negative (Negative); Methadone Screen Urine Negative (Negative); Opiate Screen Urine Negative (Negative); Phencyclidine Screen Urine Negative (Negative)
[2022-05-31 19:09] VITALS: BP 142/100; PULSE 63; RESP 18; TEMP 36.4; O2SAT 98
== END 2022-05-31 19:17 | disposition home or self-care (01) ==
PROVIDERS: Emergency Provider Emergency Medicine; PCP Nurse Practitioner
DX: S06.0X9A Concussion with loss of consciousness of unspecified duration, initial encounter (principal); W19.XXXA Unspecified fall, initial encounter; I25.10 Atherosclerotic heart disease of native coronary artery without angina pectoris; K21.9 Gastro-esophageal reflux disease without esophagitis; E78.00 Pure hypercholesterolemia, unspecified; I10 Essential (primary) hypertension; Z79.899 Other long term (current) drug therapy
CPT/HCPCS: 36415; 70450; 71045; 80053; 80307; 81003; 83605; 84484; 85025; 85610; 85730; 93005; 96360; 99284; A9270; J7040

== ENCOUNTER 2022-07-01 01:02 | Emergency (ER) | payer OTHER, SELFPAY ==
[2022-07-01] VITALS (28 sets, daily range): BP systolic 129–206; BP diastolic 78–118; PULSE 60–100; RESP 16–24; TEMP 36.3; O2SAT 93–99
--- NOTE | 2022-07-01 01:10 | ED.EPISTAXIS ---
HPI - Epistaxis General Chief complaint: Epistaxis <Irma Jensen PA-C - Last Filed: 07/01/22 02:29> Stated complaint: NOSE BLEED <Irma Jensen PA-C - Last Filed: 07/01/22 02:29> History of Present Illness HPI Narrative: 41 year old male with a history of HTN here for evaluation of atraumatic epistaxis tonight. Notes that his nose has been bleeding constantly for the past 2 hours without obvious trigger. He has attempted squeezing together his nostrils and also put in a tampon to the right nostril without relief of the bleeding. He states that he feels blood going down the back of his throat. Denies history of frequent nosebleeds, although he notes that he had a nosebleed 2 days ago that resolved after applying pressure. Denies nasal trauma. He takes aspirin and Plavix after he had a stent placed in 2014. He took his home BP meds today. He is otherwise asymptomatic; denies chest pain, shortness of breath, lightheadedness. <Irma Jensen PA-C - Last Filed: 07/01/22 02:29> Related Data Home medications: Home Medications Medication Instructions Recorded Confirmed aspirin 81 mg chewable tablet 81 mg PO DAILY 06/18/20 05/31/22 isosorbide mononitrate 60 mg 60 mg PO DAILY 06/18/20 05/31/22 tablet,extended release 24 hr lisinopril 40 mg tablet 40 mg PO DAILY 06/18/20 05/31/22 metoprolol succinate 50 mg 50 mg PO DAILY 06/18/20 05/31/22 tablet,extended release 24 hr montelukast 10 mg tablet 10 mg PO HS 06/18/20 05/31/22 pantoprazole 40 mg tablet,delayed 40 mg PO DAILY 06/18/20 05/31/22 release rosuvastatin 40 mg tablet 40 mg PO HS 08/12/20 05/31/22 nortriptyline 25 mg capsule 25 mg PO HS 03/31/21 05/31/22 clopidogrel 75 mg tablet 75 mg PO DAILY 05/31/22 05/31/22 nebivolol 10 mg tablet (Bystolic) 10 mg PO DAILY 05/31/22 05/31/22 <LANDON Echavarria Last Filed: 07/01/22 02:29> Allergies/adverse reactions: Allergies Allergy/AdvReac Type Severity Reaction Status Date / Time ibuprofen Allergy Mild Dyspnea / Verified 07/01/22 01:10 SOB morphine Allergy Unknown Dyspnea / Verified 07/01/22 01:10 SOB <Irma Jensen PA-C - Last Filed: 07/01/22 02:29> Review of Systems Review of Systems: Gen: Denies fevers or chills Eyes: Denies eye pain or visual change ENT: Reports epistaxis. Respiratory: Denies shortness of breath or cough CV: Denies chest pain or palpitations GI: Denies abdominal pain nausea, emesis or diarrhea : denies burning, urgency, frequency or hematuria Musculoskeletal: Denies back pain or muscle pain Neuro: Denies numbness, tingling, weakness or focal weakness Skin: Denies rash Except as documented, all other systems reviewed and negative <LANDON Echavarria Last Filed: 07/01/22 02:29> [facility] Past Medical History Medical History: Medical History Coronary artery disease Head injury History of gastroesophageal reflux (GERD) Hypercholesteremia Hypertension <LANDON Echavarria Last Filed: 07/01/22 02:29> Surgical History Surgical History: Surgical History History of cardiac catheterization History of coronary artery stent placement History of craniotomy 04/2020 <LANDON Echavarria Last Filed: 07/01/22 02:29> Family History Family History: Family History Father Heart valve problem Malignant neoplasm of prostate Cerebrovascular accident Mother Hypertension <LANDON Echavarria Last Filed: 07/01/22 02:29> Social History Social History: Social History Social History: Lives at home with his and 2 children. They have a dog. Lifelong nonsmoker. Drinks 2-3 alcoholic drinks per week. No drug use. Full code. He nominates his to be
[2022-07-01] MEDS: cloNIDine HCL 0.1 MG TABLET PO (02:00)
--- NOTE | 2022-07-01 02:55 | PC.NURSE ---
nose began bleeding agan while pt outside waiting for ride. returned back to ed room 1. md present to assess bleeding
--- NOTE | 2022-07-01 03:37 | PC.NURSE ---
Pt was D/C per CRISTINA Solis.While pt was in ED lobby waiting for ride home, patient's nose started to bleed again and was assisted back to EDbed 1, where DR. Piper took over pt care.
[2022-07-01 04:39] LABS: Basophils Absolute Auto 0.1 K/mm3 (0.0-0.1); Basophils Percent Auto 1.1 % (0.2-1.2); Eosinophils Absolute Auto 0.2 K/mm3 (0-0.3); Eosinophils Percent Auto 1.3 % (0-4.4); Hematocrit 46.4 % (42.0-52.0); Hemoglobin 16.3 g/dL (14.0-18.0); Immature Granulocyte Absolute 0.12 K/mm3 (0.00-0.031); Lymphocytes Absolute Auto 3.75 K/mm3 (0.9-3.2); Lymphocytes Percent Auto 31.6 % (18.3-44.2); Mean Corpuscular HGB Conc 35.1 g/dl (32-36); Mean Platelet Volume 8.6 fl (7.4-10.4); Monocytes Absolute Auto 1.2 K/mm3 (0.1-0.6); Monocytes Percent Auto 10.3 % (2.6-8.5); Neutrophils Absolute Auto 6.5 K/mm3 (1.3-6.7); Neutrophils Percent Auto 54.7 % (45.5-73.1); Platelet Count Result 305 k/mm3 (150-375); Red Cell Distribution Width 12.2 % (11.5-14.5); White Blood Count 11.9 K/mm3 (4.5-10.0)
[2022-07-01 05:00] LABS: INR 0.9
[2022-07-01 05:01] LABS: Partial Thromboplastin Time 25.7 SECONDS (22.3-36.8)
[2022-07-01] MEDS: OXYMETAZOLINE HCL 0.05% NAS 15 ML BTL (*BKC) 2 SPRAY NASAL (05:01)
[2022-07-01 05:38] LABS: Alanine Aminotransferase 49 U/L (6-50); Albumin Level 4.7 g/dL (3.5-5.1); Alkaline Phosphatase 75 U/L (38-126); Anion Gap 11 mmol/L (8-16); Aspartate Amino Transferase 46 U/L (17-59); Bilirubin,Total 0.5 mg/dL (0.2-1.3); Blood Urea Nitrogen 16 mg/dL (9-20); Calcium 9.3 mg/dL (8.4-10.2); Carbon Dioxide 25 mmol/L (22-30); Chloride 103 mmol/L (98-107); Estimated CRCL calculation 128 ml/min; Estimated Glomerular Filt Rate > 60; Glucose 108 mg/dL (65-110); Potassium 4.3 mmol/L (3.4-5.0); Sodium 139 mmol/L (137-145)
--- NOTE | 2022-07-01 07:08 | PC.NURSE ---
Shift report given to CON Urrutia.
--- NOTE | 2022-07-01 07:49 | WPDCN ---
Assessment and Plan Assessment and plan (1) Epistaxis: Code(s): R04.0 - Epistaxis Status: Acute Plan Significant right epistaxis secondary to anticoagulatoin. Required bilateral packing. No longer bleeding. Recommend removal on Tuesday, he will call my office to arrange follow up for that day. 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 Precautions given to patient in case he has further bleeding. HPI Data of Consult Date/Time: 07/01/22 07:49 Primary Care Provider: Betty Soriano, [facility] Consult Narrative Reason for consult: epistaxis Narrative: Toño Hidalgo is a 41 year old male known to me on plavix/ASA who had bleeding over the weekend intermittently and then came to the ER overnight with a heavy right nose bleed that didn't easily stop. ER team packed him with rhinorocket, afrin and I was asked to come see him. On interview in the ER this morning he had finally stopped bleeding. Review of Systems Review of Systems: All systems reviewed & are unremarkable except as noted in HPI and below PMFSH Past Medical History Medical History Coronary artery disease Head injury History of gastroesophageal reflux (GERD) Hypercholesteremia Hypertension Surgical History Surgical History History of cardiac catheterization History of coronary artery stent placement History of craniotomy 04/2020 Family History Family History Father Heart valve problem Malignant neoplasm of prostate Cerebrovascular accident Mother Hypertension Social History Social History Social History: Lives at home with his and 2 children. They have a dog. Lifelong nonsmoker. Drinks 2-3 alcoholic drinks per week. No drug use. Full code. He nominates his to be the individual would make medical decisions for him if he is not able. Smoking status: Never smoker Tobacco type: cigarettes Second hand tobacco smoke exposure: Yes Alcohol intake: current Drinks per week: 3 Substance use: never Substance use type: does not use Gender identity (if verbalized by the patient): Male Sexual Orientation (if Verbalized by the Patient): Straight or Heterosexual Spiritual care concerns: No Meds Home Medications and Allergies Home Medications Medication Instructions Recorded Confirmed Type aspirin 81 mg chewable tablet 81 mg PO DAILY 06/18/20 05/31/22 History isosorbide mononitrate 60 mg 60 mg PO DAILY 06/18/20 05/31/22 History tablet,extended release 24 hr lisinopril 40 mg tablet 40 mg PO DAILY 06/18/20 05/31/22 History metoprolol succinate 50 mg 50 mg PO DAILY 06/18/20 05/31/22 History tablet,extended release 24 hr montelukast 10 mg tablet 10 mg PO HS 06/18/20 05/31/22 History pantoprazole 40 mg tablet,delayed 40 mg PO DAILY 06/18/20 05/31/22 History release rosuvastatin 40 mg tablet 40 mg PO HS 08/12/20 05/31/22 History diltiazem HCl 240 mg 240 mg PO DAILY #30 caps 03/31/21 05/31/22 Rx capsule,extended release 24 hr, controlled nortriptyline 25 mg capsule 25 mg PO HS 03/31/21 05/31/22 History clopidogrel 75 mg tablet 75 mg PO DAILY 05/31/22 05/31/22 History nebivolol 10 mg tablet (Bystolic) 10 mg PO DAILY 05/31/22 05/31/22 History cephalexin 500 mg capsule 500 mg PO Q8H 7 days #21 caps 07/01/22 Rx Allergies Allergy/AdvReac Type Severity Reaction Status Date / Time ibuprofen Allergy Mild Dyspnea / Verified 07/01/22 01:10 SOB morphine Allergy Unknown Dyspnea / Verified 07/01/22 01:10 SOB Vital Signs Vital Signs - 24 hr 07/01/22 01:05 07/01/22 01:30 07/01/22 01:45 Temperature 36.3 C L Pulse Rate 100 94 85 Respiratory Rate 20 20 18 Blood Pressure 206/118 H 202/115 H 186/105 H Pulse Oximetry 97 94 94 Oxygen Delivery Room Air
--- NOTE | 2022-07-01 08:14 | PC.NURSE ---
Pt bleeding from right nare. States he started bleeding after the ENT left. ERP aware and has called ENT to see pt again.
--- NOTE | 2022-07-01 08:40 | PC.NURSE ---
ent Dr. Quiroz at bedside.
--- NOTE | 2022-07-01 08:45 | PC.NURSE ---
Dr. Quiroz at bedside.
--- NOTE | 2022-07-01 10:27 | PC.NURSE ---
Remains without bleeding from nose.
== END 2022-07-01 10:30 | disposition home or self-care (01) ==
PROVIDERS: Emergency Provider Emergency Medicine; PCP Nurse Practitioner
DX: R04.0 Epistaxis (principal); D68.32 Hemorrhagic disorder due to extrinsic circulating anticoagulants; T45.525A Adverse effect of antithrombotic drugs, initial encounter; I10 Essential (primary) hypertension; I25.10 Atherosclerotic heart disease of native coronary artery without angina pectoris; E78.00 Pure hypercholesterolemia, unspecified; K21.9 Gastro-esophageal reflux disease without esophagitis; Z95.5 Presence of coronary angioplasty implant and graft; Z79.82 Long term (current) use of aspirin; Z79.02 Long term (current) use of antithrombotics/antiplatelets
CPT/HCPCS: 30903; 36415; 80053; 85025; 85610; 85730; 99283; A9270

== ENCOUNTER 2022-11-02 15:22 | Observation (INO) | payer OTHER, SELFPAY ==
[2022-11-02] VITALS (15 sets, daily range): BP systolic 153–172; BP diastolic 90–112; PULSE 61–76; RESP 16–23; TEMP 35.9–36.7; O2SAT 95–99; BMI 40.2
--- NOTE | ~2022-11-02 | NM_ITS ---
EXAMINATION: NM stress w perf spect multi INDICATION: Chest pain, coronary artery disease TECHNIQUE: Rest images were obtained following intravenous administration of 9.9 mCi Tc99m tetrofosmi n ([employer]). The patient performed an exercise activity. At peak exercise, 34.5 mCi Tc99m tetrofosmin (Myoview) was administered intravenously, and stress images were obtained. Data was reconstructed in to short axis and horizontal and vertical long axis SPECT images. Gated SPECT images were also obtain ed. COMPARISON: None. FINDINGS: There is no definite reversible or fixed perfusion abnormality to suggest ischemia or infar ction. There is no segmental wall motion abnormality. Left ventricular ejection fraction measures 7 7%. IMPRESSION: No definite ischemia or infarct. Normal left ventricular ejection fraction measuring 77%. Reviewed, dictated and finalized at [facility]. TING PRESSMAN
--- NOTE | ~2022-11-02 | XR_ITS ---
Clinical Indication: Chest pain PA and lateral views of the chest: Comparison: 05/31/2022 Findings: The lungs are clear, without evidence of focal consolidation or pleural effusion. Cardiome diastinal silhouette is within normal limits. Bones and soft tissues are unremarkable. Impression: Normal chest. Reviewed, dictated and finalized at location . RY SHEAR CUTTER Impression: Normal chest.
--- NOTE | 2022-11-02 15:29 | ECG_ITS ---
Measurements Intervals [place] Rate: 71 P: 13 VT: 175 QRS: -9 QRSD: 113 T: 29 QT: 380 QTc: 414 Interpretive Statements SINUS RHYTHM MODERATE INTRAVENTRICULAR CONDUCTION DELAY [110+ ms QRS DURATION] MODERATE VOLTAGE CRITERIA FOR LVH, CONSIDER NORMAL VARIANT [MEETS CRITERIA IN ONE OF: R(aVL), S(V1), R(V5), R(V5/V6)+S(V1)] ABNORMAL ECG COMPARED TO ECG 05/31/2022 17:48:42 INTRAVENTRICULAR CONDUCTION DELAY NOW PRESENT Electronically Signed On 11-02-2022 15:37:49 [employer] by Panda Tate M.D.
[2022-11-02 15:45] LABS: Basophils Absolute Auto 0.1 K/mm3 (0.0-0.1); Eosinophils Absolute Auto 0.2 K/mm3 (0-0.3); Eosinophils Percent Auto 1.9 % (0-4.4); Hematocrit 47.2 % (42.0-52.0); Hemoglobin 16.7 g/dL (14.0-18.0); Immature Granulocyte Absolute 0.03 K/mm3 (0.00-0.031); Immature Granulocyte Percent A 0.3 % (0-0.5); Lymphocytes Absolute Auto 2.79 K/mm3 (0.9-3.2); Lymphocytes Percent Auto 29.5 % (18.3-44.2); Mean Corpuscular HGB Conc 35.4 g/dl (32-36); Mean Corpuscular Hemoglobin 31.9 pg (26-34); Mean Corpuscular Volume 90.1 fl (80-100); Mean Platelet Volume 8.6 fl (7.4-10.4); Monocytes Absolute Auto 0.7 K/mm3 (0.1-0.6); Monocytes Percent Auto 7.6 % (2.6-8.5); Neutrophils Absolute Auto 5.7 K/mm3 (1.3-6.7); Neutrophils Percent Auto 59.7 % (45.5-73.1); Platelet Count Result 273 k/mm3 (150-375); Red Blood Count 5.24 M/mm3 (4.6-6.20); White Blood Count 9.5 K/mm3 (4.5-10.0)
[2022-11-02 15:55] LABS: Alanine Aminotransferase 56 U/L (6-50); Albumin Level 4.5 g/dL (3.5-5.1); Alkaline Phosphatase 78 U/L (38-126); Anion Gap 6 mmol/L (8-16); Aspartate Amino Transferase 46 U/L (17-59); Bilirubin,Total 0.6 mg/dL (0.2-1.3); Blood Urea Nitrogen 15 mg/dL (9-20); Calcium 8.9 mg/dL (8.4-10.2); Carbon Dioxide 26 mmol/L (22-30); Chloride 103 mmol/L (98-107); Estimated CRCL calculation 144 ml/min; Estimated Glomerular Filt Rate > 60; Glucose 148 mg/dL (65-110); Lipase 127 U/L (23-300); Potassium 3.5 mmol/L (3.4-5.0); Sodium 135 mmol/L (137-145)
[2022-11-02 15:57] LABS: Prothrombin Time 12.7 Seconds (11.1-14.7)
[2022-11-02 16:07] LABS: Troponin I < 0.012 ng/mL (0.000-0.034)
--- NOTE | 2022-11-02 17:01 | ED.CHESTPAIN ---
HPI - Chest Pain General Chief Complaint: Chest Pain Stated Complaint: neck and jaw pain Time Seen by Provider: 11/02/22 16:58 Source: patient Mode of arrival: ambulatory Limitations: no limitations History of Present Illness HPI narrative: Patient is a 42-year-old male with a history of hypertension, dyslipidemia, coronary artery disease presenting for evaluation of chest pain that has occurred at rest and with exertion. Patient reports chest pain that is a pressure in nature over the center of his chest with radiation to the middle back, left side of neck, jaw and left shoulder. Patient states he had associated mild nausea without diaphoresis or lightheadedness. He reports worsening of symptoms with exertion as well as shortness of breath with exertion. Patient reports that he travels by car frequently with long car rides but has no history of blood clot. Patient was previously on Brilinta but then had that discontinued secondary to insurance constraints, that was placed on Plavix and that was discontinued due to recurrent bleeding. Patient is unsure of his anticoagulation regimen at this point. He denies leg swelling or calf pain. No leg redness. He does report pleuritic pain. He denies cough or hemoptysis. Pain is currently mild in nature but present. It is improved from previously. Reviewed the patient's chart with visits in the past for recurrent epistaxis secondary to anticoagulation as well as cardiology notes.? He has a history of stent placement in the past includin.5 x 20 mm drug-eluting stent RCA, 3.5 x 24 mm drug-eluting stent? mid LAD 2015, March 2016 2.5 x 12 mm drug-eluting stent proximal portion of major diagonal branch. Last admission, noninvasive measures were done, last heart catheterization 2019 Related Data Home Medications Medication Instructions Recorded Confirmed aspirin 81 mg chewable tablet 81 mg PO DAILY 06/18/20 05/31/22 isosorbide mononitrate 60 mg 60 mg PO DAILY 06/18/20 05/31/22 tablet,extended release 24 hr lisinopril 40 mg tablet 40 mg PO DAILY 06/18/20 05/31/22 metoprolol succinate 50 mg 50 mg PO DAILY 06/18/20 05/31/22 tablet,extended release 24 hr montelukast 10 mg tablet 10 mg PO HS 06/18/20 05/31/22 pantoprazole 40 mg tablet,delayed 40 mg PO DAILY 06/18/20 05/31/22 release rosuvastatin 40 mg tablet 40 mg PO HS 08/12/20 05/31/22 nortriptyline 25 mg capsule 25 mg PO HS 03/31/21 05/31/22 clopidogrel 75 mg tablet 75 mg PO DAILY 05/31/22 05/31/22 nebivolol 10 mg tablet (Bystolic) 10 mg PO DAILY 05/31/22 05/31/22 Allergies Allergy/AdvReac Type Severity Reaction Status Date / Time ibuprofen Allergy Mild Dyspnea / Verified 11/02/22 17:02 SOB morphine Allergy Unknown Dyspnea / Verified 11/02/22 17:02 SOB Review of Systems Review of Systems: CONSTITUTIONAL: Denies fever, chills, or sweats. ENT: Denies rhinorrhea, congestion, sore throat, or otalgia. CARDIOVASCULAR: Reports chest pain without palpitations or edema RESPIRATORY: Denies cough, reports dyspnea with exertion GASTROINTESTINAL: Denies abdominal pain, nausea, vomiting, or diarrhea. GENITOURINARY: Denies dysuria or hematuria. SKIN: Denies rash or itching. MUSCULOSKELETAL: Denies back pain, joint pain, or myalgia. NEUROLOGIC: Denies headache, numbness, or weakness. [facility] Past Medical History Medical History Coronary artery disease Head injury History of gastroesophageal reflux (GERD) Hypercholesteremia Hypertension Surgical History Surgical History History of cardiac catheterization History of coronary artery stent placement History of craniotomy 04/2020 Family History Family History Father Heart valve problem Malignant neoplasm of prostate Cerebrovascular accident Mother Hypertension Social History Social History (Reviewed
[2022-11-02 18:11] LABS: NT Pro B Type Natriuretic Pept 26 pg/mL (5-100)
[2022-11-02 18:17] LABS: D Dimer 0.33 ug/mL (<0.48)
[2022-11-02] MEDS: ONDANSETRON INJ 4 MG/2 ML VIAL IV PUSH (18:49)
[2022-11-02] MEDS: ACETAMINOPHEN 500 MG TABLET 1000 MG PO (18:49)
--- NOTE | 2022-11-02 19:26 | PM.IMHP ---
H&P: HPI History of Present Illness Date/Time: 11/02/22 19:26 Chief Complaint: Chest pain Narrative: This is a 42-year-old male patient who has history of hypertension, dyslipidemia, obesity and coronary artery disease with 5 stents. The patient was having chest pain that occurred at rest and exertion. Patient also had shortness of breath with exertion. The patient stated that he frequently has long car rides but no history of blood clot. The patient is no longer on Plavix due to recurrent bleeding. The patient was on Brilinta but was taken off due to insurance constraints. Reviewed the patient's chart with visits in the past for recurrent epistaxis secondary to anticoagulation as well as cardiology notes.? He has a history of stent placement in the past includin.5 x 20 mm drug-eluting stent RCA, 3.5 x 24 mm drug-eluting stent? mid LAD 2015, March 2016 2.5 x 12 mm drug-eluting stent proximal portion of major diagonal branch.? Last admission, noninvasive measures were done, last heart catheterization 2018. All 3 troponins have been nonreactive. Chest x-ray was read as normal chest. The patient was given Zofran and Tylenol in the emergency room. The patient is already on an aspirin at home. Chest x-ray was read as normal chest. Cardiology has been consulted. The patient is negative for influenza A/B and COVID. The patient is being admitted to observation status on the date of service of 11/02/2022. Review of Systems Review of Systems: See HPI All systems reviewed & are unremarkable except as noted in HPI and below Constitutional: Constitutional: Reports as per HPI and Reports no additional constitutional complaints Eyes: Eyes: Reports as per HPI and Reports no additional eye complaints ENT: Reports system reviewed and no additional complaints, except as documented and Reports Normal hearing present Cardiovascular: Cardiovascular: Reports no additional cardiovascular complaints Respiratory: Respiratory: Reports no additional respiratory complaints and Reports no additional respiratory complaints Gastrointestinal: Gastrointestinal: Reports as per HPI and Reports no additional gastrointestinal complaints Musculoskeletal: Musculoskeletal: Reports no additional musculoskeletal complaints Integumentary/Breasts: Skin/Breast: Reports system reviewed and no additional complaints, except as docu and Reports as per HPI Neurologic: Reports system reviewed and no additional complaints, except as documented, Reports as per HPI and Reports Normal hearing present Psychiatric: Psychiatric: Reports no additional psychiatric complaints and Reports as per HPI Endocrine: Endocrine: Reports no additional endocrine complaints Hematologic/Lymphatic: Hematologic/Lymphatic: Reports no additional hematologic/lymphatic complaints Allergic/Immunologic: Allergic/Immunologic: Reports no additional allergic/immunologic complaints REPLACED BY [facility] Past Medical History Medical History (Updated 11/02/22 @ 23:12 by Carrie Ayala NP) Chronic GERD Coronary artery disease Head injury History of gastroesophageal reflux (GERD) Hypercholesteremia Hypertension Surgical History Surgical History History of cardiac catheterization History of coronary artery stent placement History of craniotomy 04/2020 Family History Family History Father Heart valve problem Malignant neoplasm of prostate Cerebrovascular accident Mother Hypertension Social History Social History (Updated 11/02/22 @ 19:28 by Carrie Ayala NP) Social History: Lives at home with his and 2 children. They have a dog. Lifelong nonsmoker. Drinks 2-3 alcoholic drinks per week. No drug use. Full code. 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
[2022-11-02 19:40] LABS: Troponin I < 0.012 ng/mL (0.000-0.034)
[2022-11-02 19:51] LABS: Influenza A QL RT-PCR Negative (Negative); Influenza B QL RT-PCR Negative (Negative); SARS-CoV-2 RNA PCR Negative
--- NOTE | 2022-11-02 21:41 | ADMGEN ---
This patient, Toño Hidalgo, was admitted to IMU Room 202-01. Patient/family oriented to hospital policies and general routines including ID bracelet, bed and alarms, visiting hours, pain management, procedures, bathroom and other care routines, personal items, smoking policy, room service/diet, and visiting hours. Information on how to activate the Rapid Response Team has been discussed. Patient/Family are encouraged to report perceived risks to care and to ask questions if they do not understand what they are told or what they should do.
[2022-11-02 21:54] LABS: Troponin I < 0.012 ng/mL (0.000-0.034)
[2022-11-03] VITALS (10 sets, daily range): BP systolic 119–155; BP diastolic 70–96; PULSE 59–91; RESP 16–22; TEMP 36.1–36.8; O2SAT 92–96
--- NOTE | 2022-11-03 | EST_ITS ---
Patient Info Name: Toño Hidalgo Age: 42 years : 1980 Gender: Male Ht: 76 in Wt: 330 lbs BSA: 2.89 m2 HR: 73 bpm BP: 134 / 100 mmHg Heart Rhythm: Sinus Rhythm Exam Date: 11/03/2022 2:47 PM Exam Location: [facility] Stress Patient Status: Inpatient Admit Date: 11/02/2022 Staff Ordering Physician: Karen Corona MD Attending Provider: Maxwell Mars MD Exercise Technologist: Apurva Coughlin CT Nurse: rashi do Exam Type: CA stress test treadmill w NM Study Info Indications R07.9 - Chest pain, unspecified A nuclear stress test was performed. Summary 1. No abnormal ST/T wave changes diagnostic of ischemia with exercise. 2. Occasional PVCs. 3. Exercise capacity very good at >10 METS. 4. Of note, target heart rate not met. Patient achieved 80% of maximum predicted heart rate. 5. Hypertensive blood pressure response with stress. 6. Please correlate with nuclear medicine images, reported separately. Protocol: [facility]re Stress ECG Details Stage: REST Duration (min): 0 min : 56 sec Speed (mph): 0.0 Grade (%): 0 HR (bpm): 73 SBP (mmHg): 134 DBP (mmHg): 100 METS: --- Stage: REST Duration (min): 9 min : 17 sec Speed (mph): 0.0 Grade (%): 0 HR (bpm): 74 SBP (mmHg): 134 DBP (mmHg): 100 METS: --- Stage: STAGE 1 Duration (min): 1 min : 0 sec Speed (mph): 1.7 Grade (%): 10 HR (bpm): 91 SBP (mmHg): 134 DBP (mmHg): 100 METS: --- Stage: STAGE 1 Duration (min): 2 min : 0 sec Speed (mph): 1.7 Grade (%): 10 HR (bpm): 98 SBP (mmHg): 134 DBP (mmHg): 100 METS: --- Stage: STAGE 1 Duration (min): 3 min : 0 sec Speed (mph): 1.7 Grade (%): 10 HR (bpm): 102 SBP (mmHg): 159 DBP (mmHg): 60 METS: --- Stage: STAGE 2 Duration (min): 1 min : 0 sec Speed (mph): 2.5 Grade (%): 12 HR (bpm): 110 SBP (mmHg): 159 DBP (mmHg): 60 METS: --- Stage: STAGE 2 Duration (min): 2 min : 0 sec Speed (mph): 2.5 Grade (%): 12 HR (bpm): 117 SBP (mmHg): 164 DBP (mmHg): 75 METS: --- Stage: STAGE 2 Duration (min): 3 min : 0 sec Speed (mph): 2.5 Grade (%): 12 HR (bpm): 119 SBP (mmHg): 164 DBP (mmHg): 75 METS: --- Stage: STAGE 3 Duration (min): 1 min : 0 sec Speed (mph): 3.4 Grade (%): 14 HR (bpm): 129 SBP (mmHg): 196 DBP (mmHg): 81 METS: --- Stage: STAGE 3 Duration (min): 1 min : 59 sec Speed (mph): 3.4 Grade (%): 14 HR (bpm): 139 SBP (mmHg): 196 DBP (mmHg): 81 METS: --- Stage: RECOVERY Duration (min): 1 min : 0 sec Speed (mph): 0.0 Grade (%): 0 HR (bpm): 128 SBP (mmHg): 196 DBP (mmHg): 81 METS: --- Stage: RECOVERY Duration (min): 2 min : 0 sec Speed (mph): 0.0 Grade (%): 0 HR (bpm): 120 SBP (mmHg): 196 DBP (mmHg): 81 METS: ---
[2022-11-03] MEDS: NORTRIPTYLINE HCL 25 MG CAPSULE PO (00:26)
[2022-11-03] MEDS: ROSUVASTATIN 10 MG TABLET 40 MG PO (00:26)
[2022-11-03] MEDS: MONTELUKAST SODIUM 10 MG TABLET PO (00:26)
[2022-11-03] MEDS: PANTOPRAZOLE SODIUM IV 40 MG VIAL IV PUSH ×2 (00:27→08:59)
[2022-11-03 04:27] LABS: Basophils Absolute Auto 0.1 K/mm3 (0.0-0.1); Basophils Percent Auto 1.2 % (0.2-1.2); Eosinophils Absolute Auto 0.2 K/mm3 (0-0.3); Eosinophils Percent Auto 2.6 % (0-4.4); Immature Granulocyte Absolute 0.04 K/mm3 (0.00-0.031); Immature Granulocyte Percent A 0.5 % (0-0.5); Lymphocytes Absolute Auto 3.35 K/mm3 (0.9-3.2); Lymphocytes Percent Auto 41.1 % (18.3-44.2); Mean Corpuscular HGB Conc 34.8 g/dl (32-36); Mean Corpuscular Hemoglobin 31.6 pg (26-34); Mean Corpuscular Volume 90.9 fl (80-100); Mean Platelet Volume 8.7 fl (7.4-10.4); Monocytes Absolute Auto 0.9 K/mm3 (0.1-0.6); Monocytes Percent Auto 10.7 % (2.6-8.5); Neutrophils Absolute Auto 3.6 K/mm3 (1.3-6.7); Neutrophils Percent Auto 43.9 % (45.5-73.1); Platelet Count Result 281 k/mm3 (150-375); Red Blood Count 5.06 M/mm3 (4.6-6.20); Red Cell Distribution Width 12.1 % (11.5-14.5); White Blood Count 8.2 K/mm3 (4.5-10.0)
[2022-11-03 04:48] LABS: Alanine Aminotransferase 56 U/L (6-50); Albumin Level 4.2 g/dL (3.5-5.1); Alkaline Phosphatase 75 U/L (38-126); Anion Gap 6 mmol/L (8-16); Aspartate Amino Transferase 43 U/L (17-59); Bilirubin,Total 0.6 mg/dL (0.2-1.3); Blood Urea Nitrogen 14 mg/dL (9-20); Calcium 8.7 mg/dL (8.4-10.2); Carbon Dioxide 29 mmol/L (22-30); Chloride 104 mmol/L (98-107); Estimated CRCL calculation 133 ml/min; Estimated Glomerular Filt Rate > 60; Glucose 99 mg/dL (65-110); Magnesium 2.2 mg/dL (1.6-2.3); Potassium 3.5 mmol/L (3.4-5.0); Sodium 139 mmol/L (137-145)
[2022-11-03] MEDS: ASPIRIN 81 MG CHEWABLE TABLET PO (08:57)
[2022-11-03] MEDS: NEBIVOLOL HCL 5 MG TABLET 10 MG PO (08:57)
[2022-11-03] MEDS: METOPROLOL SUCCINATE EXT REL 50 MG TABCR PO (08:58)
[2022-11-03] MEDS: ISOSORBIDE MONONITRATE 60 MG TAB.ER.24H PO (08:58)
[2022-11-03] MEDS: lisinopriL 20 MG TABLET 40 MG PO (08:58)
[2022-11-03] MEDS: ENOXAPARIN 40 MG/0.4 ML SYRINGE SUB-Q (08:59)
[2022-11-03] MEDS: PRASUGREL HCL 10 MG TABLET PO (13:05)
[2022-11-03] MEDS: ACETAMINOPHEN 325 MG TABLET 650 MG PO (13:07)
--- NOTE | 2022-11-03 16:19 | PM.CNCAR ---
Assessment and Plan Assessment and plan (1) Coronary artery disease: Code(s): I25.10 - Atherosclerotic heart disease of [place] coronary artery without angina pectoris Status: Chronic (2) Chest pain: Code(s): R07.9 - Chest pain, unspecified Status: Acute Plan Will obtain treadmill nuclear stress test. Continue his home medications. If stress test is normal, he can be discharged home. History of Present Illness History of Present Illness Consult date/time: 11/03/22 16:19 Requesting physician: Ju Leiva MD Consult reason: chest pain Reason For Visit: Chest Pain Narrative: We are being consulted for chest pain. This is a 42-year-old male with a history of CAD s/p remote myocardial infarction status post 2.5 x 20 mm drug-eluting stent RCA, 3.5 x 24 mm drug-eluting stent?mid LAD 2015, March 2016 2.5 x 12 mm drug-eluting stent proximal portion of major diagonal branch in setting of NSTEMI. He had patent stents on left heart catheterization May 2019 and a history of chronic recurrent chest pain syndrome ultimately felt to be esophageal inflammation.? He has a history of obesity, hypertension, dyslipidemia. Patient states that he developed left neck pain with some radiation down to the left arm and radiation to his back. Had some mild nausea and lightheadedness. No clear association with exertion or with rest. Troponins here are negative x 3. EKG was without ischemic changes. Review of Systems Review of Systems: 12-point ROS obtained. Negative, unless stated in HPI. [facility] Past Medical History Medical History Chronic GERD Coronary artery disease Head injury History of gastroesophageal reflux (GERD) Hypercholesteremia Hypertension Surgical History Surgical History History of cardiac catheterization History of coronary artery stent placement History of craniotomy 04/2020 Family History Family History Father Heart valve problem Malignant neoplasm of prostate Cerebrovascular accident Mother Hypertension Social History Social History Social History: Lives at home with his and 2 children. They have a dog. Lifelong nonsmoker. Drinks 2-3 alcoholic drinks per week. No drug use. Full code. He nominates his to be the individual would make medical decisions for him if he is not able.cvs Smoking status: Never smoker Tobacco type: cigarettes Second hand tobacco smoke exposure: Yes Alcohol intake: current Drinks per week: 4 Substance use: never Substance use type: does not use Lack of Transportation: No Lack of Food: Never True Current Housing: I Have Housing Concerned About Future Housing: No Difficulty Paying Gas/Electric Bills: No Difficulty Paying for Meds: No Currently Unemployed: No Education: Bachelor's Degree Difficulty w/ Childcare or Family Care: No Gender identity (if verbalized by the patient): Male Sexual Orientation (if Verbalized by the Patient): Straight or Heterosexual Spiritual care concerns: No Meds Home Medications and Allergies Home Medications Medication Instructions Recorded Confirmed Type aspirin 81 mg chewable tablet 81 mg PO DAILY 06/18/20 11/02/22 History isosorbide mononitrate 60 mg 60 mg PO DAILY 06/18/20 11/02/22 History tablet,extended release 24 hr lisinopril 40 mg tablet 40 mg PO DAILY 06/18/20 11/02/22 History metoprolol succinate 50 mg 50 mg PO DAILY 06/18/20 11/02/22 History tablet,extended release 24 hr montelukast 10 mg tablet 10 mg PO HS 06/18/20 11/02/22 History pantoprazole 40 mg tablet,delayed 40 mg PO DAILY 06/18/20 11/02/22 History release rosuvastatin 40 mg tablet 40 mg PO HS 08/12/20 11/02/22 History diltiazem HCl 240 mg 240 mg PO DAILY #30 caps 03/31/21 11/02/22 Rx c
--- NOTE | 2022-11-03 18:37 | PM.DS ---
DS: Admitting Diagnosis Discharge Date 11/03/22 Admitting Diagnosis Chest pain DS: Discharge Diagnosis Discharge Diagnosis (1) Chest pain: Code(s): R07.9 - Chest pain, unspecified Status: Acute (2) Coronary artery disease: Code(s): I25.10 - Atherosclerotic heart disease of [place] coronary artery without angina pectoris Status: Chronic (3) Uncontrolled hypertension: Code(s): I10 - Essential (primary) hypertension Status: Chronic (4) Dyslipidemia: Code(s): E78.5 - Hyperlipidemia, unspecified Status: Chronic (5) Chronic GERD: Code(s): K21.9 - Gastro-esophageal reflux disease without esophagitis Status: Acute DS: Summary Hospital Course Reason for hospitalization: 42yo male with HTN, CAD here for jaw and upper chest discomfort that radiated to the left arm. Please see H&P for details. Hospital Course: Patient presents to the emergency room for evaluation. Troponin was negative x3. Chest x-ray was clear. His last heart catheterization was 2018 and stents were patent. He has a history of chronic recurrent chest pain syndrome felt to be esophageal inflammation. Lipase was normal. TSH was normal. Baseline labwork was unrevealing. Influenza and COVID were negative. EKG showed normal sinus rhythm with intraventricular conduction delay which is new as well as voltage criteria for LVH. Cardiology was consulted. Patient underwent Lexiscan stress test. There is no abnormal ST-T wave changes that were concerning for ischemia. Exercise capacity was very good. He had occasional PVCs. His target heart rate was not met and he was hypertensive in response to the stress. Nuclear images showed no definitive ischemia or infarct. EF was 77%. Patient overall did well was able be discharged home on 11/03/2022. Status at Discharge Cognitive/behavioral status at discharge: stable Time Spent with Patient Time attestation: Total time spent providing and/or coordinating discharge services: 35 minutes Time spent: Greater than 30 minutes Exam Narrative: AF 96.9 119/72 88 18 93% ra Gen - NARD Chest - CTA bilaterally, nml RR CV - RRR S1/S2. Tele showing no significant dysrhythmias Abd - Soft, NT/ND, Positive BS Ext - No pedal edema Psych - Nml mood and affect Skin - Warm and dry DS: Data Data Completed and Pending Labs on day of discharge: Labs from last 24 hours 11/03/22 11/03/22 11/03/22 03:54 03:54 03:54 WBC 8.2 RBC 5.06 Hgb 16.0 Hct 46.0 MCV 90.9 MCH 31.6 MCHC 34.8 RDW 12.1 Plt Count 281 MPV 8.7 Immature Gran % (Auto) 0.5 Neut % (Auto) 43.9 L Lymph % (Auto) 41.1 [place] % (Auto) 10.7 H Eos % (Auto) 2.6 Baso % (Auto) 1.2 Lymph # (Auto) 3.35 H [place] # (Auto) 0.9 H Eos # (Auto) 0.2 Baso # (Auto) 0.1 Abs Immat Gran (auto) 0.04 H Absolute Neuts (auto) 3.6 Absolute Nucleated RBC 0.0 Nucleated RBC % 0.0 Sodium 139 Potassium 3.5 Chloride 104 Carbon Dioxide 29 Anion Gap 6 L BUN 14 Creatinine 1.00 Estim Creat Clear Calc 133 Estimated GFR > 60 Glucose 99 Calcium 8.7 Magnesium 2.2 Total Bilirubin 0.6 AST 43 ALT 56 H Alkaline Phosphatase 75 Troponin I Total Protein 7.0 Albumin 4.2 TSH (Reflex) 2.180 Influenza A (RT-PCR) Influenza B (RT-PCR) SARS-CoV-2 RNA (RT-PCR) 11/02/22 11/02/22 11/02/22 21:25 19:15 19:02 WBC RBC Hgb Hct MCV MCH MCHC RDW Plt Count MPV Immature Gran % (Auto) Neut % (Auto) Lymph % (Auto) [place] % (Auto) Eos % (Auto) Baso % (Auto) Lymph # (Auto) [place] # (Auto) Eos # (Auto) Baso # (Auto) Abs Immat Gran (auto) Absolute Neuts (auto) Absolute Nucleated RBC Nucleated RBC % Sodium Potassium Chloride Carbon Dioxide Anion Gap BUN Creatinine Estim Creat Clear Calc
--- NOTE | 2022-11-10 08:23 | PC.NURSE ---
Echo results shown to Dr. Fay and faxed to PCP.
== END 2022-11-03 20:00 | disposition home or self-care (01) ==
LOC: ANHED 18:34 → ANHIMU 21:05
PROVIDERS: Nurse Practitioner; Admitting Provider Internal Medicine; Emergency Provider Emergency Medicine; PCP Nurse Practitioner; Visit Provider Internal Medicine
DX: R07.9 Chest pain, unspecified (principal); I25.10 Atherosclerotic heart disease of native coronary artery without angina pectoris; I10 Essential (primary) hypertension; E78.5 Hyperlipidemia, unspecified; K21.9 Gastro-esophageal reflux disease without esophagitis; M54.2 Cervicalgia; R68.84 Jaw pain; Z95.5 Presence of coronary angioplasty implant and graft; R06.09 Other forms of dyspnea; F10.90 Alcohol use, unspecified, uncomplicated; R94.31 Abnormal electrocardiogram [ECG] [EKG]; E66.9 Obesity, unspecified; Z68.41 Body mass index [BMI] 40.0-44.9, adult; Z77.22 Contact with and (suspected) exposure to environmental tobacco smoke (acute) (chronic); Z79.82 Long term (current) use of aspirin; Z79.02 Long term (current) use of antithrombotics/antiplatelets; Z79.899 Other long term (current) drug therapy
CPT/HCPCS: 36415; 71046; 78452; 80053; 83690; 83735; 83880; 84443; 84484; 85025; 85380; 85610; 85730; 87636; 93005; 93017; 96372; 96374; 96376; 99285; A9270; A9502; C9113; G0378; J1650; J2405

== ENCOUNTER → 2022-11-24 09:15 | Outpatient (CLI) | payer OTHER, SELFPAY ==
--- NOTE | ~2022-11-24 | US_ITS ---
EXAMINATION: US right upper quadrant DATE: 11/24/2022 09:44 INDICATION: Hiatal hernia, worsening reflux TECHNIQUE: Multiple grayscale and Doppler ultrasound images of the abdomen were obtained. COMPARISON: None available FINDINGS: Visualization of the pancreas is limited by overlying bowel gas and body habitus. The liver demonstrates increased echogenicity, heterogenous echotexture, and decreased through transmission. N o surface nodularity. Normal hepatopetal flow in the main portal vein. The gallbladder is normal with no abnormal wall thickening, pericholecystic fluid or stones. The normal common bile duct measures 4 mm. There was no sonographic Morrison sign. IMPRESSION: 1. Diffuse hepatic steatosis. Reviewed, dictated and finalized at location B. 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
== END ==
PROVIDERS: PCP Nurse Practitioner; Visit Provider Nurse Practitioner
DX: K44.9 Diaphragmatic hernia without obstruction or gangrene (principal); K76.0 Fatty (change of) liver, not elsewhere classified
CPT/HCPCS: 76705

== ENCOUNTER → 2022-12-06 14:51 | Outpatient (CLI) | payer OTHER, SELFPAY ==
--- NOTE | ~2022-12-06 | XR_ITS ---
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 RESULT: Lines, tubes, and devices: None. Lungs and pleura: Low lung volumes, with crowding. Cardiomediastinal silhouette: Stable. Other: No acute osseous or upper abdominal finding. IMPRESSION: No acute cardiopulmonary process. Reviewed, dictated and finalized at location K. L BEARING POLISHER
== END ==
PROVIDERS: PCP Nurse Practitioner; Visit Provider Nurse Practitioner
DX: U07.1 COVID-19 (principal)
CPT/HCPCS: 71046

== ENCOUNTER 2022-12-07 09:36 | Emergency (ER) | payer OTHER, SELFPAY ==
[2022-12-07 09:40] VITALS: BP 154/92; PULSE 70; RESP 20; TEMP 36.6; O2SAT 95
[2022-12-07 09:45] VITALS: O2SAT 95
--- NOTE | 2022-12-07 09:52 | ED.GENADULT ---
HPI - General Adult General Chief complaint: Upper Respiratory Infection Stated complaint: HAS HAD COVID DEHYDRATED Time Seen by Provider: 12/07/22 09:42 History of Present Illness HPI narrative: Toño is a 42M with a PMH of CAD and GERD that presented to the ED with a cough and nausea. He tested positive for covid a little over a week ago. At that time he had body aches, fatigue and coughing. Now he has a horrible cough and cannot keep and food down and he keeps very little fluids down. He denies CP, dyspnea fevers and chills. He was given azithromycin and prednisone by his PCP but they are not helping. Related Data Home Medications Medication Instructions Recorded Confirmed aspirin 81 mg chewable tablet 81 mg PO DAILY 06/18/20 12/07/22 isosorbide mononitrate 60 mg 60 mg PO DAILY 06/18/20 12/07/22 tablet,extended release 24 hr lisinopril 40 mg tablet 40 mg PO DAILY 06/18/20 12/07/22 montelukast 10 mg tablet 10 mg PO HS 06/18/20 12/07/22 pantoprazole 40 mg tablet,delayed 40 mg PO DAILY 06/18/20 12/07/22 release rosuvastatin 40 mg tablet 40 mg PO HS 08/12/20 12/07/22 nortriptyline 25 mg capsule 50 mg PO HS 03/31/21 12/07/22 albuterol 1 puff inhalation PRN 11/02/22 12/07/22 clopidogrel 75 mg tablet (Plavix) 75 mg PO DAILY 12/07/22 12/07/22 fluticasone furoate 100 1 inh inhalation DAILY 12/07/22 12/07/22 mcg-vilanterol 25 mcg/dose inhalation powder (Breo Ellipta) nebivolol 20 mg tablet (Bystolic) 90 mg PO DAILY 12/07/22 12/07/22 Allergies Allergy/AdvReac Type Severity Reaction Status Date / Time ibuprofen Allergy Mild Dyspnea / Verified 12/07/22 09:48 SOB morphine Allergy Unknown Dyspnea / Verified 12/07/22 09:48 SOB Review of Systems Review of Systems: All systems reviewed & are unremarkable except as noted in HPI and below PMFSH Past Medical History Medical History Chronic GERD Coronary artery disease Head injury History of gastroesophageal reflux (GERD) Hypercholesteremia Hypertension Surgical History Surgical History History of cardiac catheterization History of coronary artery stent placement History of craniotomy 04/2020 Family History Family History Father Heart valve problem Malignant neoplasm of prostate Cerebrovascular accident Mother Hypertension Social History Social History Social History: Lives at home with his and 2 children. They have a dog. Lifelong nonsmoker. Drinks 2-3 alcoholic drinks per week. No drug use. Full code. He nominates his to be the individual would make medical decisions for him if he is not able.cvs Smoking status: Never smoker Tobacco type: cigarettes Second hand tobacco smoke exposure: Yes Alcohol intake: current Drinks per week: 4 Substance use: never Substance use type: does not use Lack of Transportation: No Lack of Food: Never True Current Housing: I Have Housing Concerned About Future Housing: No Difficulty Paying Gas/Electric Bills: No Difficulty Paying for Meds: No Currently Unemployed: No Education: Bachelor's Degree Difficulty w/ Childcare or Family Care: No Living arrangements: with family Occupation/Education: occupation Gender identity (if verbalized by the patient): Male Sexual Orientation (if Verbalized by the Patient): Straight or Heterosexual Spiritual care concerns: No Exam Const: General: healthy appearing and no acute distress Nutritional Appearance: well nourished Orientation/consciousness: patient oriented x3 HENMT: Head: normal to inspection Ears: external ears normal Eyes: Conjunctivae: conjunctivae normal Pupils: Equal, round and reactive pupils present Neck: Neck: normal visual inspection Chest: Chest palpation & inspection:
[2022-12-07] MEDS: SODIUM CHLORIDE 0.9% IV 1,000 ML 999 ML IV CONT (10:05)
[2022-12-07] MEDS: ONDANSETRON INJ 4 MG/2 ML VIAL IV PUSH (10:06)
[2022-12-07 10:09] LABS: Basophils Absolute Auto 0.08 K/mm3 (0.00-0.10); Basophils Percent Auto 0.7 % (0.0-1.0); Eosinophils Absolute Auto 0.01 K/mm3 (0.02-0.50); Eosinophils Percent Auto 0.1 % (1.0-6.0); Hematocrit 42.8 % (40.0-54.0); Hemoglobin 14.8 g/dL (14.0-18.0); Immature Granulocyte Absolute 0.18 K/mm3 (0.00-0.00); Immature Granulocyte Percent A 1.5 % (0.0-0.0); Lymphocytes Absolute Auto 2.54 K/mm3 (1.10-4.50); Lymphocytes Percent Auto 21.6 % (18.0-42.0); Mean Corpuscular HGB Conc 34.6 g/dL (32.0-36.0); Mean Corpuscular Hemoglobin 31.6 pg (27.0-31.0); Mean Corpuscular Volume 91.3 fL (78.0-102.0); Mean Platelet Volume 8.6 fl (8.7-11.0); Monocytes Absolute Auto 0.61 K/mm3 (0.10-0.90); Monocytes Percent Auto 5.2 % (2.0-11.0); Neutrophils Absolute Auto 8.3 K/mm3 (1.7-7.2); Neutrophils Percent Auto 70.9 % (50.0-70.0); Platelet Count Result 334 K/mm3 (150-420); Red Blood Count 4.69 M/mm3 (4.70-6.10); Red Cell Distribution Width 12.1 % (11.6-14.4); White Blood Count 11.8 K/mm3 (4.8-10.8)
[2022-12-07 10:25] LABS: Alanine Aminotransferase 53 U/L (16-63); Albumin Level 3.6 g/dL (3.4-5.0); Alkaline Phosphatase 75 U/L (46-116); Anion Gap 9 mmol/L (8-16); Aspartate Amino Transferase 19 U/L (15-37); Bilirubin,Total 0.5 mg/dL (0.00-1.00); Blood Urea Nitrogen 15 mg/dL (7-18); Calcium 8.3 mg/dL (8.5-10.1); Carbon Dioxide 27 mmol/L (21-32); Chloride 105 mmol/L (98-108); Estimated CRCL calculation 116 ml/min; Estimated Glomerular Filt Rate > 60; Glucose 198 mg/dL (70-99); Osmolality Calculated 298 mOsm/kg (285-295); Sodium 141 mmol/L (136-145); Total Protein 6.9 g/dL (6.4-8.2)
[2022-12-07 10:44] LABS: Influenza A QL RT-PCR Negative (Negative); Influenza B QL RT-PCR Negative (Negative); RSV RNA, RT-PCR Negative (Negative); SARS-CoV-2 RNA PCR Negative (Negative)
[2022-12-07 10:45] VITALS: BP 137/94; PULSE 65; RESP 18; TEMP 36.6; O2SAT 95
[2022-12-07] MEDS: POTASSIUM CHLORIDE 20 MEQ TABLET 40 MEQ PO (10:50)
== END 2022-12-07 11:00 | disposition home or self-care (01) ==
PROVIDERS: Emergency Provider Family Medicine; PCP Nurse Practitioner
DX: U07.1 COVID-19 (principal); E87.6 Hypokalemia; I25.10 Atherosclerotic heart disease of native coronary artery without angina pectoris; I10 Essential (primary) hypertension; Z79.82 Long term (current) use of aspirin; Z20.822 Contact with and (suspected) exposure to COVID-19
CPT/HCPCS: 36415; 80053; 85025; 87637; 96361; 96374; 99284; A9270; J2405; J7030

== ENCOUNTER 2024-08-07 09:58 | Emergency (ER) | payer BC, SELFPAY ==
[2024-08-07 09:58] VITALS: BP 112/78; PULSE 100; RESP 18; TEMP 36.5; O2SAT 100
--- NOTE | 2024-08-07 10:12 | ED.GENADULT ---
HPI - General Adult General Chief complaint: Nausea/Vomiting/Diarrhea Stated complaint: NAUSEA Time Seen by Provider: 08/07/24 10:05 Source: patient Mode of arrival: ambulatory Limitations: no limitations History of Present Illness HPI narrative: 43-year-old white male complains of nausea vomiting and diarrhea for past 5 days. In last 24 hours he has had over 12 loose watery nonbloody stools and vomited 6 times. He is dizzy when he stands up. Denies any pain fever sore throat runny nose. He has no change in his chronic nonproductive cough. Denies any bleeding. He says he bruises easily And he has felt chilled. denies any swelling lumps or bumps problems voiding or walking talking seeing or hearing. He is taking Zepbound / tirzepatide for weight loss and has lost 40 lb in last 8 weeks. He last took it 8 days ago. Been taking Zofran for nausea. Is any other complaints Related Data Home Medications Medication Instructions Recorded Confirmed aspirin 81 mg chewable tablet 81 mg PO DAILY 06/18/20 08/07/24 isosorbide mononitrate 60 mg 60 mg PO DAILY 06/18/20 08/07/24 tablet,extended release 24 hr lisinopril 40 mg tablet 40 mg PO DAILY 06/18/20 08/07/24 rosuvastatin 40 mg tablet 40 mg PO HS 08/12/20 08/07/24 nebivolol 20 mg tablet (Bystolic) 10 mg PO DAILY 12/07/22 08/07/24 cetirizine 10 mg capsule (Zyrtec) 10 mg PO PRN allergies 08/07/24 08/07/24 fluticasone 500 mcg-salmeterol 50 1 inh inhalation BID 08/07/24 08/07/24 mcg/dose blistr powdr for inhalation (Wixela Inhub) lansoprazole 30 mg capsule,delayed 30 mg PO DAILY 08/07/24 08/07/24 release montelukast 10 mg tablet 10 mg PO DAILY 08/07/24 08/07/24 prasugrel 10 mg tablet 10 mg PO DAILY 08/07/24 08/07/24 tirzepatide (weight loss) 5 mg/0.5 5 mg subcut WEEKLY 08/07/24 08/07/24 mL subcutaneous pen injector (Zepbound) Allergies Allergy/AdvReac Type Severity Reaction Status Date / Time ibuprofen Allergy Mild Dyspnea / Verified 08/07/24 10:07 SOB morphine Allergy Unknown Dyspnea / Verified 08/07/24 10:07 SOB PMFSH Past Medical History Medical History Chronic GERD Coronary artery disease Head injury History of gastroesophageal reflux (GERD) Hypercholesteremia Hypertension Surgical History Surgical History History of cardiac catheterization History of coronary artery stent placement History of craniotomy 04/2020 Family History Family History Father Heart valve problem Malignant neoplasm of prostate Cerebrovascular accident Mother Hypertension Social History Social History Social History: Lives at home with his and 2 children. They have a dog. Lifelong nonsmoker. Drinks 2-3 alcoholic drinks per week. No drug use. Full code. He nominates his to be the individual would make medical decisions for him if he is not able.cvs Smoking status: Never smoker Tobacco type: cigarettes Second hand tobacco smoke exposure: Yes Alcohol intake: current Drinks per week: 4 Substance use: never Substance use type: does not use Lack of Transportation: No Lack of Food: Never True Current Housing: I Have Housing Concerned About Future Housing: No Difficulty Paying Gas/Electric Bills: No Difficulty Paying for Meds: No Currently Unemployed: No Education: Bachelor's Degree Difficulty w/ Childcare or Family Care: No Living arrangements: with family Occupation/Education: occupation Gender identity (if verbalized by the patient): Male Sexual Orientation (if Verbalized by the Patient): Straight or Heterosexual Spiritual care concerns: No Exam Narrative: White male patient with no apparent distress.? Head normocephalic, atraumatic.? Eyes conjunctiva pink sclera nonict
[2024-08-07 10:29] LABS: Hemoglobin 18.9 g/dL (14.0-18.0); Mean Corpuscular HGB Conc 35.7 g/dL (32-36); Mean Corpuscular Hemoglobin 32.5 pg (27.0-31.0); Mean Corpuscular Volume 91.2 fL (78.0-102.0); Mean Platelet Volume 8.8 fl (8.7-11.0); Platelet Count Result 331 K/mm3 (150-420); Red Blood Count 5.81 M/mm3 (4.70-6.10); Red Cell Distribution Width 12.3 % (11.6-14.4); White Blood Count 13.9 K/mm3 (4.8-10.8)
[2024-08-07 10:35] LABS: Add Urine Microscopic? YES; Appearance Urine Clear (Clear); Bilirubin Urine 2+ (Negative); Blood Urine Negative (Negative); Color Urine Orange (Yellow); Glucose Urine UA Negative (Negative); Ketones Urine 2+ (Negative); Leukocyte Esterase Ur Negative LEU/UL (Negative); Nitrate Urine Negative (Negative); Protein Urine Trace (Negative); Specific Grav Ur >= 1.030 (1.010-1.020); Urobilinogen Urine 0.2 mg/dL (0.2-1.0); pH Urine 5.5 (5.0-8.0)
[2024-08-07] MEDS: ONDANSETRON INJ 4 MG/2 ML VIAL IV PUSH (10:35)
[2024-08-07] MEDS: SODIUM CHLORIDE 0.9% IV 1,000 ML 999 ML IV CONT (10:36)
[2024-08-07 10:38] LABS: Alanine Aminotransferase 21 U/L (16-63); Albumin Level 3.6 g/dL (3.4-5.0); Alkaline Phosphatase 119 U/L (46-116); Anion Gap 9 mmol/L (4-12); Aspartate Amino Transferase 11 U/L (15-37); Bilirubin,Total 0.7 mg/dL (0.00-1.00); Blood Urea Nitrogen 15 mg/dL (7-18); Calcium 9.1 mg/dL (8.5-10.1); Carbon Dioxide 30 mmol/L (21-32); Chloride 100 mmol/L (98-108); Estimated CRCL calculation 79 ml/min; Estimated Glomerular Filt Rate 47; Glucose 88 mg/dL (70-99); Lipase 38 U/L (16-77); Osmolality Calculated 287 mOsm/kg (285-295); Potassium 3.6 mmol/L (3.5-5.1); Sodium 139 mmol/L (136-145)
[2024-08-07 10:41] LABS: Bacteria Urine Trace /hpf; Mucus Urine Heavy /lpf; RBC Urine None seen /hpf (0-2); WBC Urine None seen /hpf (0-3)
[2024-08-07 10:43] LABS: Lactic Acid Reflex 1.1 mmol/L (0.4-2.0)
[2024-08-07 11:13] LABS: SARS-CoV-2 RNA PCR Negative (Negative)
[2024-08-07 11:16] VITALS: BP 113/89; PULSE 88; RESP 18; TEMP 36.6; O2SAT 99
[2024-08-07 11:17] LABS: Influenza A QL RT-PCR Negative (Negative); Influenza B QL RT-PCR Negative (Negative); RSV RNA, RT-PCR Negative (Negative)
[2024-08-07 11:49] VITALS: BP 116/85; PULSE 84; RESP 18; TEMP 36.6; O2SAT 96
== END 2024-08-07 11:50 | disposition home or self-care (01) ==
PROVIDERS: Emergency Provider Emergency Medicine; PCP Nurse Practitioner
DX: K52.9 Noninfective gastroenteritis and colitis, unspecified (principal); E86.9 Volume depletion, unspecified; N17.9 Acute kidney failure, unspecified; I10 Essential (primary) hypertension; I25.10 Atherosclerotic heart disease of native coronary artery without angina pectoris; Z79.899 Other long term (current) drug therapy; Z79.82 Long term (current) use of aspirin; Z20.822 Contact with and (suspected) exposure to COVID-19
CPT/HCPCS: 36415; 80053; 81001; 83605; 83690; 85027; 87637; 96361; 96374; 99284; J2405; J7030

== ENCOUNTER 2024-10-31 10:55 | Outpatient (CLI) | payer BC, SELFPAY ==
--- NOTE | ~2024-10-31 | MR_ITS ---
MRI of the brain Clinical History: Headache Technique: Axial and sagittal T1-weighted images were acquired. These were followed by axial T2-weigh moses, diffusion weighted, gradient, and FLAIR images. Findings: No significant signal abnormality seen in the brain parenchyma. No acute infarct, intracran ial hemorrhage, or mass lesion. Ventricles and subarachnoid spaces are unremarkable. Orbits are unremarkable. Paranasal sinuses and m astoid air cells are clear. Major intracranial flow voids are intact. Sagittal midline structures are intact. IMPRESSION: No significant abnormality. Reviewed, dictated and finalized at location M. 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
== END 2024-10-31 10:56 | disposition home or self-care (01) ==
LOC: GOSHIMG 10:56
PROVIDERS: PCP Nurse Practitioner; Visit Provider Nurse Practitioner
DX: R51.9 Headache, unspecified (principal)
CPT/HCPCS: 70551

== ENCOUNTER 2025-05-20 11:57 | Emergency (ER) | payer OTHER, SELFPAY ==
[2025-05-20] VITALS (22 sets, daily range): BP systolic 105–144; BP diastolic 67–95; PULSE 48–56; RESP 13–22; TEMP 36.3; O2SAT 96–100
--- NOTE | ~2025-05-20 | XR_ITS ---
EXAM/PROCEDURE: XR chest 2V - 05/20/2025 14:25 CDT HISTORY: 44 years old Male with chest pain TECHNIQUE: Two view(s) of the chest. COMPARISON: None available. FINDINGS: LUNGS/ PLEURA: No focal consolidation. No appreciable pneumothorax or large pleural effusion. HEART/ MEDIASTINUM: Heart appears normal in size. BONES: No acute osseous abnormality. OTHER: Visualized upper abdomen is unremarkable. IMPRESSION: No acute process. Reviewed, dictated and finalized at location A. IMPRESSION: No acute process.
--- NOTE | 2025-05-20 11:58 | ECG_ITS ---
Test Date: 2025-05-20 15:00:27 Measurements Intervals [place] Rate: 52 P: -8 VT: 172 QRS: -6 QRSD: 105 T: 1 QT: 428 QTc: 399 Interpretive Statements SINUS BRADYCARDIA WITH OCCASIONAL SUPRAVENTRICULAR PREMATURE COMPLEXES POSSIBLE RIGHT VENTRICULAR CONDUCTION DELAY [RSR (QR) IN V1/V2] POSSIBLE LEFT VENTRICULAR HYPERTROPHY [VOLTAGE CRITERIA PLUS LAE OR QRS WIDENING] No previous ECG available for comparison Electronically Signed On 05-20-2025 22:11:30 CDT by Morelia Contreras M.D.
--- OUTSIDE RECORDS SUMMARY | 2025-05-20 12:00 | XMS_ITS ---
Author Organization Unknown Medications Medication Instructions Effective Dates (start - stop) Status albuterol 0.833 MG/ML / ipratropium bromide 0.167 MG/ML Inhalation Solution [id number]:00:00.000+00:0 0 - Completed 60 ACTUAT fluticasone propio samantha 0.5 MG/ACTUAT / salmeterol 0.05 MG/ACTUAT Dry Powder Inhaler [Advair] [id number]:00:00.000+00:0 0 - Completed hydrocortisone 10 MG/ML / ne omycin 3.5 MG/ML / polymyxin B 47452 UNT/ML Ophthalmic Suspension 7491-17-75R65:00:00.000+0 0:0 0 - Completed 30 ACTUAT fluticasone furoat e 0.2 MG/ACTUAT / vilanterol 0.025 MG/ACTUAT Dry Powder Inhaler [Breo] [id number]:00:00.000+00:0 0 - Completed codeine phosphate 2 MG/ML / guaifenesin 20 MG/ML Oral Solution [id number]:00:00 .000+00:0 0 - Completed albuterol 0.833 MG/ML / ipratropium bromide 0.167 MG/ML Inhalation Solution 5044-00-05H00:00:00.000+00:0 0 - Completed 60 ACTUAT fluticasone propio samantha 0.5 MG/ACTUAT / salmeterol 0.05 MG/ACTUAT Dry Powder Inhaler [Advair] [id number]:00:00.000+00:0 0 - Completed acetaminophen 325 MG / hydro codone bitartrate 7.5 MG Oral Tablet [id number]:00:00.000+ 00:0 0 - Completed 30 ACTUAT fluticasone furoat e 0.2 MG/ACTUAT / vilanterol 0.025 MG/ACTUAT Dry Powder Inhaler [Breo] [id number]:00:00.000+00:0 0 - Completed hydrocortisone 10 MG/ML / ne omycin 3.5 MG/ML / polymyxin B 54872 UNT/ML Ophthalmic Suspension 0680-48-85U00:00:00.000+0 0:0 0 - Completed 60 ACTUAT fluticasone propio samantha 0.5 MG/ACTUAT / salmeterol 0.05 MG/ACTUAT Dry Powder Inhaler [Advair] [id number]:00:00.000+00:0 0 - Completed 60 ACTUAT fluticasone propio samantha 0.5 MG/ACTUAT / salmeterol 0.05 MG/ACTUAT Dry Powder Inhaler [Advair] [id number]:00:00.000+00:0 0 - Completed amoxicillin 875 MG / clavula samantha 125 MG Oral Tablet 3499-55-55L19:00:00.000+00:0 0 - Completed codeine phosphate 2 MG/ML / guaifenesin 20 MG/ML Oral Solution [id number]:00:00 .000+00:0 0 - Completed nortriptyline 25 MG Oral Capsule 9113-29-83O46:00:00.000+00:0 0 - Completed [id number] 200 ACTUAT albuter ol 0.09 MG/ACTUAT Metered Dose Inhaler [id number]:00:00.000+00:0 0 - Completed [id number] 200 ACTUAT albuter ol 0.09 MG/ACTUAT Metered Dose Inhaler [id number]:00:00.000+00:0 0 - Completed prednisone 20 MG Oral Tablet 01-13-20:00:00.000+00:0 0 - Completed - [id number]:00 :00.000+00:0 0 - Completed [id number] 200 ACTUAT albuter ol 0.09 MG/ACTUAT Metered Dose Inhaler [id number]:00:00.000+00:0 0 - Completed [id number] 200 ACTUAT albuter ol 0.09 MG/ACTUAT Metered Dose Inhaler [id number]:00:00.000+00:0 0 - Completed nortriptyline 25 MG Oral Capsule 7065-93-69O76:00:00.000+00:0 0 - Completed prednisone 20 MG Oral Tablet 01-15-11:00:00.000+00:0 0 - Completed gabapentin 100 MG Oral Capsule [id number]:00:00.000+00:0 0 - Completed prednisone 10 MG Oral Tablet 01-15-14:00:00.000+00:0 0 - Completed nortriptyline 25 MG Oral Capsule 2023-11-28H34:00:00.000+00:0 0 - Completed famotidine 40 MG Oral Tablet 12-24-22:00:00.000+00:0 0 - Completed montelukast 10 MG Oral Tablet 04-06-29:00:00.000+00:0 0 - Completed 24 HR diltiazem hydrochlorid e 240 MG Extended Release Oral Capsule [Dilt] [id number]:00:00.000+00:0 0 - Completed lisinopril 40 MG Oral Tablet 12-24-24:00:00.000+00:0 0 - Completed lisinopril 40 MG Oral Tablet 01-16-03:00:00.000+00:0 0 - Completed cephalexin 500 MG Oral Capsule 791-12-34B41:00:00.000+00:0 0 - Completed montelukast 10 MG Oral Tablet 05-04-16:00:00.000+00:0 0 - Completed 24 HR diltiazem hydrochlorid e 240 MG Extended Release Oral Capsule [Dilt] [id number]:00:00.000+00:0 0 - Completed {6 (azithromycin 250 MG Oral Tablet) } Pack [id number]:00:00.000+00:0 0 - Completed 24 HR diltiazem hydrochlorid e 240 MG Extended Release Oral Capsule [Dilt] [id number]:00:00.000+00:0 0 - Completed famotidine 40 MG Oral Tablet 01-12-19:00:00.000+00:0 0 - Completed lisinopril 40 MG Oral Tablet 01-13-03:00:00.000+00:0 0 - Completed azelastine hydrochloride 0.1 37 MG/ACTUAT Metered Dose Nasal Barry 4632-24-71X22:00:00 .000+00:0 0 - Completed benzonatate 100 MG Oral Capsule 1540-02-35M78:00:00.000+00:0 0 - Completed azelastine hydrochloride 0.1 37 MG/ACTUAT Metered Dose Nasal Barry 6338-27-93J79:00:00 .000+00:0 0 - Completed lisinopril 40 MG Oral Tablet 12-21-24:00:00.000+00:0 0 - Completed famotidine 40 MG Oral Tablet 01-16-03:00:00.000+00:0 0 - Completed famotidine 40 MG Oral Tablet 12-21-24:00:00.000+00:0 0 - Completed montelukast 10 MG Oral Tablet 06-01-27:00:00.000+00:0 0 - Completed montelukast 10 MG Oral Tablet 04-09-25:00:00.000+00:0 0 - Completed 24 HR diltiazem hydrochlorid e 240 MG Extended Release Oral Capsule [Dilt] [id number]:00:00.000+00:0 0 - Completed rosuvastatin calcium 40 MG O ral Tablet 7329-59-95O37:00:00.000+00:0 0 - Completed 24 HR isosorbide mononitrate 60 MG Extended Release Oral Tablet 3798-01-20R71:00:00.000+0 0:0 0 - Completed pantoprazole 40 MG Delayed R elease Oral Tablet [id number]:00:00.000+00:0 0 - Completed 24 HR isosorbide mononitrate 60 MG Extended Release Oral Tablet 8638-45-00G84:00:00.000+0 0:0 0 - Completed 24 HR isosorbide mononitrate 60 MG Extended Release Oral Tablet 4745-49-04K67:00:00.000+0 0:0 0 - Completed ofloxacin 3 MG/ML Ophthalmic Solution [id number]:00:00.000+00:0 0 - Completed 24 HR isosorbide mononitrate 60 MG Extended Release Oral Tablet [id number]:00:00.000+0 0:0 0 - Completed nebivolol 10 MG Oral Tablet 2021:00:00.000+00:0 0 - Completed pantoprazole 40 MG Delayed R elease Oral Tablet 7035-07-84G00:00:00.000+00:0 0 - Completed rosuvastatin calcium 40 MG O ral Tablet 8320-00-98H11:00:00.000+00:0 0 - Completed rosuvastatin calcium 40 MG O ral Tablet [id number]:00:00.000+00:0 0 - Completed pantoprazole 40 MG Delayed R elease Oral Tablet 6416-11-79Y79:00:00.000+00:0 0 - Completed nebivolol 10 MG Oral Tablet 2021:00:00.000+00:0 0 - Completed rosuvastatin calcium 40 MG O ral Tablet [id number]:00:00.000+00:0 0 - Completed pantoprazole 40 MG Delayed R elease Oral Tablet 7076-58-07Q11:00:00.000+00:0 0 - Completed rosuvastatin calcium 40 MG O ral Tablet [id number]:00:00.000+00:0 0 - Completed nebivolol 10 MG Oral Tablet 2022:00:00.000+00:0 0 - Completed nebivolol 10 MG Oral Tablet 2022:00:00.000+00:0 0 - Completed prasugrel 10 MG Oral Tablet 2021:00:00.000+00:0 0 - Completed prasugrel 10 MG Oral Tablet 2022:00:00.000+00:0 0 - Completed prasugrel 10 MG Oral Tablet 2022:00:00.000+00:0 0 - Completed [id number] 200 ACTUAT albuter ol 0.09 MG/ACTUAT Metered Dose Inhaler [id number]:00:00.000+00:0 0 - Completed Patient Care team information Name Category Status Period Participants - - Proposed period not known -
--- OUTSIDE RECORDS SUMMARY | 2025-05-20 12:00 | XMS_ITS | Encounter Summary ---
Author Organization [facility] Healthcare Address [address] [place] [address] Care Team Providers Care Department Specialist Name Role Phone Referral, Self Unavailable Unavailable Betty Soriano MD Primary Care Provider [phone]- [phone] Encounter Details Date Type Department Care Team (Late st Contact Info) Description 04/05/2025 Results Follow-Up [facility] Con[facility]ient Care at [address] [address] Daniel Dunbar NP [address] [place] [address] [address] [place] [address] XR Elbow Left 3+ Vw Social History Tobacco Use Types Packs/Day Years Used Date Smoking Tobacco: Never Smokeless Tobacco: Never Alcohol Use Standard Drinks/Week Comments Yes 0 (1 standard drink = 0.6 oz pur e alcohol) Sex and Gender Information Value Date Recorded Sex Assigned at Not on file 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
--- OUTSIDE RECORDS SUMMARY | 2025-05-20 12:00 | XMS_ITS | Referral Summary ---
Author Organization [facility] Address [address] [place] [id number] Care Team Providers Care Driller Multiple Spindle Name Role Phone Referral, Self Unavailable Unavailable Betty Soriano MD Primary Care Provider [phone]- [phone] Encounters Date Type Department Care Team Description 04/22/2025 1:00 PM CDT Office Visit [facility] Sports Medicine and Primary Care at [address] [place] [address] Bowen Moreno DO Biceps tendinitis on left (Primary Dx) 04/05/2025 Results Follow-Up [facility] at [address] [address] Daniel Dunbar NP XR Elbow Left 3+ Vw 04/05/2025 8:40 AM CDT Ancillary Procedure [facility] Imaging at [address] [address] Left elbow pain 04/05/2025 8:35 AM CDT Ancillary Procedure [facility] Imaging at [address] [id number] Left elbow pain 04/05/2025 8:45 AM CDT Office Visit [facility] at [address] [phone] Daniel Dunbar NP Left elbow pain (Primary Dx); Left forearm pain from Last 3 Months Allergies Active Allergy Reactions Criticality Noted Date Comments Ibuprofen Shortness of breath High 06/25/2017 Morphine Shortness of breath High 01/11/2020 Ezetimibe Other (See comments) Low 01/19/2021 depression Medications aspirin (ASPIR-81) 81 mg tablet take 1 tablet by oral route every day 0 0 6 Active montelukast (SINGULAIR) 10 mg tablet Take 1 tablet (10 mg total) by mouth nightly Active nitroglycerin (NITROSTAT) 0.[address] 1 tablet (0.4 mg total) under the tongue every 5 (five) minutes as needed for chest pain 90 tablet 11 0 Active Additional Information Patient not taking.Reported on 04/22/2025 albuterol HFA (PROVENTIL HFA,VENTOLIN HFA,PROAIR HFA) 90 mcg/actuation inhaler INHALE 2 PUFFS INTO THE LUNGS EVERY 4 HOURS NEEDED FOR WHEEZING OR SHORTNESS OF BREATH. 2 Active cetirizine (ZyrTEC) 5 mg tablet 2 tablets (10 mg total) Active guaiFENesin-code ine (GUAITUSS AC) liquid 100-10 mg/5 mL TAKE 10 MLS BY MOUTH NIGHTLY NEEDED FOR COUGH OR CONGESTION. 2 Active cyclobenzaprine (FLEXERIL) 10 mg tablet Take 1 tablet (10 mg total) by mouth 3 (three) times a day as needed for muscle spasms 2 Active nortriptyline (PAMELOR) 25 mg capsule TAKE 1 CAPSULE BY MOUTH AT BEDTIME FOR 7 DAYS THEN INCREASE TO 2 CAPSULES AT BEDTIME 180 capsule 1 3 Active tiotropium (SPIRIVA) 18 mcg per inhalation capsule Place 1 puff (1 capsule total) into inhaler and inhale daily Active famotidine (PEPCID) 40 mg tablet Take 1 tablet (40 mg total) by mouth daily Active Advair Diskus 500-50 mcg/dose diskus inhaler Inhale 1 puff 2 (two) times a day Active pantoprazole DR (PROTONIX) 40 mg EC tablet TAKE 1 TABLET BY MOUTH EVERY DAY 90 tablet 1 3 Active prasugreL (EFFIENT) tablet TAKE 1 TABLET BY MOUTH EVERY DAY 90 tablet 3 3 Active predniSONE (DELTASONE) 10 mg tablet Shaq 60 mg x 10 dys, then 40 mg the 11th dy, then 20 mg the 12th dy, then 10 mg the 13th dy then stop 67 tablet 3 Active isosorbide mononitrate ER (IMDUR) 60 mg 24 hr tablet TAKE 1 TABLET BY MOUTH EVERY DAY 90 tablet 2 3 Active Additional Information Patient not taking.Reported on 04/22/2025 dilTIAZem XR 240 mg 24 hr capsule Take 1 capsule (240 mg total) by mouth daily 90 capsule 1 4 Active nebivoloL (BYSTOLIC) 10 mg tablet TAKE 1 TABLET BY MOUTH EVERY DAY 90 tablet 4 Active Additional Information Patient not taking.Reported on 04/22/2025 rosuvastatin (CRESTOR) 40 mg tablet TAKE 1 TABLET BY MOUTH EVERY DAY 90 tablet 4 Active lisinopriL (PRINIVIL,ZESTRI L) 40 mg tablet TAKE 1 TABLET BY MOUTH EVERY DAY 90 tablet 4 Active Zepbound 7.5 mg/0.5 mL pen injector INJECT 7.5 MG INTO THE SKIN ONCE A WEEK. 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 Peripheral vertigo involving right ear 0 Gastroesophageal reflux disease 01/25/2020 Hyperlipidemia 01/25/2020 Essential hypertension 01/25/2020 Coronary arteriosclerosis 01/25/2020 Class 3 severe obesity due t o excess calories with serious comorbidity and body mass index (BMI) of 40.0 to 44.9 in adult 10/02/2018 Chronic fatigue 07/20/2017 History of myocardial infarction 01/14/2017 Overview (04/08/2017): H/O acute myocardial infarction Body mass index 40+ - severely obese 03/22/2016 Overview (02/18/2017): Morbid obesity with BMI of 40.0-44.9, adult Coronary artery disease invo lving [place] coronary artery of [place] heart without angina pectoris 12/29/2015 Overview (02/18/2017): Coronary artery disease involving [place] coronary artery of [place] heart with other form of angina pectoris Acute non-ST elevation myocardial infarction (NS MARIA LUISA) 12/16/2015 Overview (02/18/2017): Non-ST elevation myocardial infarction (NSTEMI), subsequent episode of care Benign hypertension 12/16/2015 Overview (02/18/2017): HTN (hypertension), benign Shortness of breath 12/16/2015 Overview (02/18/2017): SOB (shortness of breath) S/P coronary artery stent placement 12/16/2015 Overview (02/18/2017): Status post insertion of drug-eluting stent into left anterior descending artery for coronary artery disease Atypical migraine 11/27/2013 Facial numbness 10/03/2013 Overview (04/29/2020): 10/05/2013 Pt admitted with episode of transient facial numbness and confusion. currently resolved. MRI brain with no acute pathology, EEG: neg, LP done with no evidence of infection, electrolytes normal. TSH normal. Neurology on board. As per neuro most likely diagnosis is migraine related. Pt started on topamax 25 BID with increase to 50 mg BID after 2 weeks. Will need to follow up with Dr. Calles in 1-2 month. 10/05/2013 Pt admitted with episode of transient facial numbness and confusion. currently resolved. MRI brain with no acute pathology, EEG: neg, LP done with no evidence of infection, electrolytes normal. TSH normal. Neurology on board. As per neuro most likely diagnosis is migraine related. Pt started on topamax 25 BID with increase to 50 mg BID after 2 weeks. Will need to follow up with Dr. Calles in 1-2 month. 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 Gender Identity Male 03/23/2020 7:25 PM CDT Sexual Orientation Straight 03/23/2020 7: 25 PM CDT Last Filed Vital Signs Vital Sign Reading Time Taken Comments Blood Pressure 122/80 04/22/2025 1:01 PM CDT Pulse 65 04/22/2025 1:01 PM CDT Temperature 36.8 C (98.3 F) 04/05/2025 8:37 AM CDT Respiratory Rate 18 04/05/2025 8:37 AM CDT Oxygen Saturation 95% 04/05/2025 8:37 AM CDT Inhaled Oxygen Concentration - - Weight 130.6 kg (288 lb) 04/22/2025 1:01 PM CDT Height 188 cm (6' 2) 04/22/2025 1:01 PM CDT Body Mass Index 36.98 04/22/2025 1:01 PM CDT Plan of Treatment Not on file Procedures Procedure Name Priority Date/Time Associated Diagnosis Comments XR ELBOW LEFT 3 OR MORE VIEWS Schedule PETER, Read PETER (Appt Today, Awaiting Results) 04/05/2025 8:40 AM CDT Left elbow pain XR RADIUS ULNA LEFT 2 VIEWS Schedule PETER, Read PETER (Appt Today, Awaiting Results) 04/05/2025 8:40 AM CDT Left elbow pain from Last 3 Months Results * XR Elbow Left 3+ Vw (04/05/2025 8:40 AM CDT) Anatomical Region Laterality Modality Upper Extremities, Elbow Left Digital Radiography 04/05/2025 10:4 5 AM CDT Narrative 04/05/2025 10:46 AM CDT EXAM DESCRIPTION: XR RADIUS ULNA LEFT 2 VIEWS; XR ELBOW LEFT 3 OR MORE VIEWS REASON FOR STUDY: Other (type) Pt complains of arm pain after feeling something pop yesterday. No known injury or prior surgery ; Other (type), injury yesterday while moving wood Pt complains of arm pain after feeling something pop yesterday. No known injury or prior surgery FINDINGS: Two views of the left forearm and three views of the left elbow are submitted for interpretation. No prior examination is available for comparison. The alignment of the left elbow is anatomic. The joint spaces are normal. No fracture or effusion. Mild soft tissue swelling overlying the olecranon. The alignment of the left forearm is anatomic. No fracture seen. IMPRESSION: Mild soft tissue swelling overlying the olecranon with otherwise normal left elbow and forearm radiographs. THIS IS AN ELECTRONICALLY VERIFIED FINAL REPORT 04/05/2025 10:46 AM - Electronically signed by Isidro Hale M.D. T: Report ID: [id number] Reading Location: [id number] Procedure Note Isidro Hale MD - 04/05/2025 EXAM DESCRIPTION: XR RADIUS ULNA LEFT 2 VIEWS; XR ELBOW LEFT 3 OR MORE VIEWS REASON FOR STUDY: Other (type) Pt complains of arm pain after feeling something pop yesterday. No known injury or prior surgery ; Other (type), injury yesterday while movingwood Pt complains of arm pain after feeling something pop yesterday. No known injury or prior surgery FINDINGS: Two views of the left forearm and three views of the left elboware submitted for interpretation. No prior examination is available for comparison. The alignment of the left elbow is anatomic. The joint spaces are normal.No fracture or effusion. Mild soft tissue swelling overlying theolecranon. The alignment of the left forearm is anatomic. No fracture seen. IMPRESSION: Mild soft tissue swelling overlying the olecranon with otherwise normalleft elbow and forearm radiographs. THIS IS AN ELECTRONICALLY VERIFIED FINAL REPORT 04/05/2025 10:46 AM - Electronically signed by Isidro Hale M.D. T: Report ID: [id number] Reading Location: [id number] Daniel Dunbar INTERACTIVE DIGITAL MEDIA SPECIALIST IMG XR PROCEDURES Final Result * XR Forearm Left 2 Vw (04/05/2025 8:40 AM CDT) Anatomical Region Laterality Modality Upper Extremities, Forearm Left Digit al Radiography 04/05/2025 10:4 5 AM CDT Narrative 04/05/2025 10:46 AM CDT EXAM DESCRIPTION: XR RADIUS ULNA LEFT 2 VIEWS; XR ELBOW LEFT 3 OR MORE VIEWS REASON FOR STUDY: Other (type) Pt complains of arm pain after feeling something pop yesterday. No known injury or prior surgery ; Other (type), injury yesterday while moving wood Pt complains of arm pain after feeling something pop yesterday. No known injury or prior surgery FINDINGS: Two views of the left forearm and three views of the left elbow are submitted for interpretation. No prior examination is available for comparison. The alignment of the left elbow is anatomic. The joint spaces are normal. No fracture or effusion. Mild soft tissue swelling overlying the olecranon. The alignment of the left forearm is anatomic. No fracture seen. IMPRESSION: Mild soft tissue swelling overlying the olecranon with otherwise normal left elbow and forearm radiographs. THIS IS AN ELECTRONICALLY VERIFIED FINAL REPORT 04/05/2025 10:46 AM - Electronically signed by Isidro Hale M.D. T: Report ID: [id number] Reading Location: [id number] Procedure Note Isidro Hale MD - 04/05/2025 EXAM DESCRIPTION: XR RADIUS ULNA LEFT 2 VIEWS; XR ELBOW LEFT 3 OR MORE VIEWS REASON FOR STUDY: Other (type) Pt complains of arm pain after feeling something pop yesterday. No known injury or prior surgery ; Other (type), injury yesterday while movingwood Pt complains of arm pain after feeling something pop yesterday. No known injury or prior surgery FINDINGS: Two views of the left forearm and three views of the left elboware submitted for interpretation. No prior examination is available for comparison. The alignment of the left elbow is anatomic. The joint spaces are normal.No fracture or effusion. Mild soft tissue swelling overlying theolecranon. The alignment of the left forearm is anatomic. No fracture seen. IMPRESSION: Mild soft tissue swelling overlying the olecranon with otherwise normalleft elbow and forearm radiographs. THIS IS AN ELECTRONICALLY VERIFIED FINAL REPORT 04/05/2025 10:46 AM - Electronically signed by Isidro Hale M.D. T: Report ID: [id number] Reading Location: [place] [id number] Daniel Dunbar NP IMG XR PROCEDURES Final Result from Last 3 Months Insurance [facility]/O Address: [facility] [id number] [place] [id number] [facility] [place] [address] [facility] CHO[employer] PL[employer] Care Teams Driller Multiple Spindle Relationship Specialty Start Date End Date Betty Soriano MD PCP - General Nurse Practitioner 11/27/21 Referral, Self Referring Physician Otolaryngology 05/14/20
--- OUTSIDE RECORDS SUMMARY | 2025-05-20 12:00 | XMS_ITS | Clinical Summary ---
Author Organization [facility] Address [address] [place] [address] Care Team Providers Care Desilverizer Name Role Phone Referral, Self Unavailable Unavailable Betty Soriano MD Primary Care Provider [phone] Allergies Active Allergy Reactions Criticality Noted Date [...] 40.0-44.9, adult Coronary artery disease invo lving [place] coronary artery of [place] heart without angina pectoris 12/29/2015 Overview (02/18/2017): Coronary artery disease involving [place] coronary artery of [place] heart with other form of angina pectoris [...] Noncompliance Dyslipidemia 12/16/2015 06/16/2023 Overview (02/18/2017): Dyslipidemia Encounters Date Type Department Care Team Description 04/22/2025 1:00 PM CDT Office Visit [facility] Primary Care at [address] [place] [address] Bowen Moreno DO Biceps tendinitis on left (Primary Dx) 04/05/2025 8:45 AM CDT Office Visit [facility] at [address] [address] Daniel Dunbar NP Left elbow pain (Primary Dx); Left forearm pain 04/05/2025 8:40 AM CDT Ancillary Procedure [facility] Imaging at [address] [address] Left elbow pain 04/05/2025 8:35 AM CDT Ancillary Procedure [facility] at [address] [address] Left elbow pain 04/05/2025 Results Follow-Up [facility] at [address] [address] Daniel Dunbar NP XR Elbow Left 3+ Vw from Last 3 Months Surgical History Surgery Date Site/Laterality Comments CARDIAC STENT PLACEMENT EAR SURGERY Medical History Medical History Date Comments Hypertension Coronary artery disease Dyslipidemia Heart disease Family History Medical History Relation Name Comments Heart attack Father Myocardial infa rction; Heart attack Maternal Grandfather Myocard ial infarction; Heart attack Mother's Brother Myocardial infarction; Heart attack Paternal Grandmother Myocard ial infarction; Relation Name Status Comments Father Maternal Grandfather Mother's Brother Paternal Grandmother Social History Tobacco Use Types Packs/Day Years Used Date Smoking Tobacco: Never Smokeless Tobacco: Never Alcohol Use Standard Drinks/Week Comments Yes 0 (1 standard drink = 0.6 oz pur e alcohol) Sex and Gender Information Value Date Recorded Sex Assigned at Not on file Legal Sex 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 Gender Identity Male 03/23/2020 7:25 PM CDT Sexual Orientation Straight 03/23/2020 7: 25 PM CDT Obstetrics History Last Filed Vital Signs Vital Sign Reading [...] 04/22/2025 1:01 PM CDT Plan of Treatment Health Maintenance Due Date Last Done Comments Colon Cancer Screening-Colonoscopy 1979 Depression Screening 1979 Hepatitis C Screening 1979 Regular Well Visit/Exam 18-64 1997 Pneumococcal vaccine <65 (1 of 2 - PCV) 1998 Covid-19 Vaccine ( season) 2024 03/02/2021, 02/09/2021 Influenza Vaccine (#1) 2025 4, 11/23/2023, 10/18/2022, Additional history exists DTaP/Tdap/Td Vaccine (2 - Td or Tdap) 01/21/2030 01/22/2020 Hepatitis B Screening Completed 11/23/2023 , 03/12/2021, 01/25/2020 HPV Vaccines Aged Out No longer eligi ble based on patient's age to complete this topic Procedures Procedure Name Priority Date/Time Associated Diagnosis [...] by Isidro Hale M.D. T: Report ID: [id number] Reading Location: [id number] Procedure Note Isidro Hale MD - 04/05/2025 [...] by Isidro Hale M.D. T: Report ID: [id number] Reading Location: [id number] Daniel Dunbar NP IM XR PROCEDURES Final Result * XR Forearm [...] by Isidro Hale M.D. T: Report ID: [id number] Reading Location: [id number] Procedure Note Isidro Hale MD - 04/05/2025 [...] by Isidro Hale M.D. T: Report ID: [id number] Reading Location: [id number] Daniel Dunbar NP IMG XR PROCEDURES Final Result from Last 3 Months Insurance [facility] HMO [id number] [place] [address] HMO [facility] CHOICE PLUS Care Teams Desilverizer Relationship Specialty Start Date End Date Betty Soriano MD PCP - General Nurse Practitioner 11/27/21 Referral, Self Referring Physician Otolaryngology 05/14/20
--- OUTSIDE RECORDS SUMMARY | 2025-05-20 12:01 | XMS_ITS | Patient Health Record ---
Author Organization [facility] Address [address] [place], [place] [address] Care Team Providers Care Youth Pastor Name Role Phone Betty Soriano Unavailable Unavailable LEVY LIMON Unavailable [phone] Allergies Allergen (clinical drug ingredient) Drug/Non Drug Allergy documented on EMR Reaction Allergy Type Onset Date Status ibuprofen Ibuprofen Unknown Drug Allergy Active morphine Morphine Unknown Drug Allergy Active Reason For Referral No Information Medications Medication SIG (Take, Route, Frequency, Duration) Notes Start Date End Date Status Isosorbide Mononitrate ER 60 MG TAKE 1 TABLET BY MOUTH EVERY DAY Oral; Duration: 90 Days Active Isosorbide Mononitrate ER 60 MG TAKE 1 TABLET BY MOUTH EVERY DAY Oral; Duration: 90 Days Active Lansoprazole 30 MG TAKE 1 CAPSULE BY MO PAH EVERY DAY Oral; Duration: 90 Days Active Wixela Inhub 500-50 MCG/ACT INHALE 1 PUF F BY MOUTH TWICE A DAY Inhalation; Duration: 90 Days Active Famotidine 40 MG TAKE 1 TABLET BY RAFI TH LATE IN THE DAY Oral; Duration: 13 Days Active Aspirin 81 MG 1 tablet Orally Once a day; Duration: 30 day(s) 08/30/2024 Active Nebivolol HCl 10 MG Oral; Duration: 90 Days Active Zepbound 2.5 MG/0.5ML Subcutaneous; Dura tion: 28 Days Active Albuterol Sulfate HFA 108 (90 Base) MCG/ACT INHALE 2 PUFFS BY MOUTH EVERY 4 HOURS NEEDED FOR WHEEZE OR FOR SHORTNESS OF BREATH Inhalation; Duration: 17 Days Active Rosuvastatin Calcium 40 MG Oral; Duration: 90 Days Active Prasugrel HCl 10 MG Oral; Duration: 90 Days Active dilTIAZem HCl ER 240 MG Oral; Duration: 90 Days Active Lisinopril 40 MG Oral; Duration: 90 Days Active Montelukast Sodium 10 MG Oral; Duration: 90 Days Active Vital Signs Height-cm 198.12 cm 08/30/2024 Weight-kg 136.08 kg 08/30/2024 Height 78 in 08/30/2024 Weight 300 lbs 08/30/2024 BMI 34.66 kg/m2 08/30/2024 Encounters Encounter Location Date Provider Diagnosis [facility] [address] [place], [place] [id number] 08/30/2024 LEVY LIMON Ingrowing nail L60.0 ; Contusion of left great toe without damage to nail, initial encounter S90.112A ; Tinea unguium B35.1 ; Pain in left toe(s) M79.675 and Localized edema R60.0 Assessments Encounter Date Diagnosis (ICD Code) Assessment Notes Treatment Notes Treatment Clinical Notes Section Notes 08/30/2024 Ingrowing nail (ICD-10 - L60.0) Slant Back Toenail: Following skin prep, the offending nail border to left hallux was debrided without anesthesia. The patient was instructed on monitoring for infection or recurrence. 08/30/2024 Contusion of left great toe without damage to nail, initial encounter (ICD-10 - S90.112A) 08/30/2024 Tinea unguium (ICD-10 - B35.1) The patient was educated regarding all treatment options that include topical and oral antifungal treatments. I discussed the options of taking a sample of the nail to confirm diagnosis. Nail clippings were not sent for pathology analysis. The patient was educated why and how the fungal infection evolved in their feet and the patient was given information regarding how to prevent further infection. The patient was told to keep feet dry and change socks. The patient was told to be careful with old shoes and excessive sweating. The patient was educated regarding both OTC and prescription treatments. 08/30/2024 Pain in left toe(s) (ICD-10 - M79.675) 08/30/2024 Localized edema (ICD-10 - R60.0) Plan Of Treatment No Information Insurance Providers Payer Name Payer Address Payer Phone Subscriber Number Group Number Insured Name Patient Relationship to Insured Coverage Start Date Coverage End Date [facility] ([facility] ATTN CLAIMS [address] [place] [address] [id number] Toño Hidalgo Self - patient is the insured Medical (General) History Medical History History ICD Code acid reflux Respiratory disease angina heart/disease/failure high blood pressure Surgical History Surgery Date(Month/Year) crainotomy heart stent
--- OUTSIDE RECORDS SUMMARY | 2025-05-20 12:01 | XMS_ITS | Encounter Summary ---
Author Organization [facility] Address [address] [address] Care Team Providers Care Sales And In Home Delivery Specialist Name Role Phone Bowen Juarez MD Primary Care Provider [phone] Bowen Juarez MD Primary Care Provider [phone] Bowen Juarez MD Primary Care Provider [phone] Unknown, Notinfile Primary Care Provider Unavail able No, Physician Primary Care Provider [phone] Maggie Fields MD Primary Care Provider [phone] Referral, Self Unavailable Unavailable Betty Soriano MD Primary Care Provider [phone] Encounter Details Date Type Department Care Team (Late st Contact Info) Description 06/15/2016 Orders Only [facility] ProviderJessenia MD [address] [place] [address] Social History Tobacco Use Types Packs/Day Years Used Date Smoking Tobacco: Never Alcohol Use Standard Drinks/Week Comments Yes 0 (1 standard drink = 0.6 oz pur e alcohol) Sex and Gender Information Value Date Recorded Sex Assigned at Not on file Legal Sex Male 7:37 AM PLSQL DEVELOPER Gender Identity Male 03/23/2020 7:25 PM CDT Sexual Orientation Straight 03/23/2020 7: 25 PM CDT documented as of this encounter Plan of Treatment Not on file documented as of this encounter Procedures Procedure Name Priority Date/Time Associated Diagnosis Comments CARDIOLOGY REPORT 06/15/2016 documented in this encounter Results * CARDIOLOGY REPORT (06/15/2016) Anatomical Region Laterality Modality Other Narrative 06/15/2016 Ordered by an unspecified provider. us Historical Provider [facility] DONNA DAWN Final Result documented in this encounter Visit Diagnoses Not on filedocumented in this encounter Care Teams Sales And In Home Delivery Specialist Relationship Specialty Start Date End Date Bowen Juarez MD [address] [address] PCP - General 02/11/17 05/24/19 Bowen Juarez MD [address] [address] PCP - General 09/30/16 02/10/17 Bowen Juarez MD [address] [address] PCP - General 12/16/15 09/29/16 Unknown, Notinfile PCP - General 05/25/19 09/06/19 No, Physician PCP - General 09/07/19 01/10/20 Maggie Fields MD PCP - General Family Medicine 01/11/20 11/26/21 Betty Soriano MD PCP - General Nurse Practitioner 11/27/21 Referral, Self Referring Physician Otolaryngology 05/14/20 documented as of this encounter
--- OUTSIDE RECORDS SUMMARY | 2025-05-20 12:01 | XMS_ITS | Encounter Summary ---
Author Organization [facility] Address [address] [address] Care Team Providers Care Procurement Officer Name Role Phone Bowen Juarez MD Primary Care Provider [phone] Bowen Juarez MD Primary Care Provider [phone] Bowen Juarez MD Primary Care Provider [phone] Unknown, Notinfile Primary Care Provider Unavail able No, Physician Primary Care Provider [phone] Maggie Fields MD Primary Care Provider [phone] Referral, Self Unavailable Unavailable Betty Soriano MD Primary Care Provider [phone] Encounter Details Date Type Department Care Team (Late st Contact Info) Description 06/16/2016 Orders Only [facility] ProviderJessenia MD [address] [place] [address] Social History Tobacco Use Types Packs/Day Years Used Date Smoking Tobacco: Never Alcohol Use Standard Drinks/Week Comments Yes 0 (1 standard drink = 0.6 oz pur e alcohol) Sex and Gender Information Value Date Recorded Sex Assigned at Not on file 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 us Historical Provider [facility] DONNA DAWN Final Result documented in this encounter Visit Diagnoses Not on filedocumented in this encounter Care Teams Procurement Officer Relationship Specialty Start Date End Date Bowen Juarez MD [address] [address] PCP - General 02/11/17 05/24/19 Bowen Juarez MD [address] [address] PCP - General 09/30/16 02/10/17 Bowen Juarez MD [address] [address] PCP - General 12/16/15 09/29/16 Unknown, Notinfile PCP - General 05/25/19 09/06/19 No, Physician PCP - General 09/07/19 01/10/20 Maggie Fields MD PCP - General Family Medicine 01/11/20 11/26/21 Betty Soriano MD PCP - General Nurse Practitioner 11/27/21 Referral, Self Referring Physician Otolaryngology 05/14/20 documented as of this encounter
--- OUTSIDE RECORDS SUMMARY | 2025-05-20 12:01 | XMS_ITS | Encounter Summary ---
Author Organization [facility] Address [address] [place] [address] Care Team Providers Care Stock Pitcher Name Role Phone Unavailable Primary Care Provider Unavailabl e Reason for Visit * Reason Onset Date Comments post ablation question 05/20/2025 Encounter Details Date Type Department Care Team (Late st Contact Info) Description 05/20/2025 Telephone [facility] At [place] [address] [facility] [address] [place] [address] Neri Thomson MD [address] [facility] [address] [place] [address] post ablation question Social History Tobacco Use Types Packs/Day Years Used Date Smoking Tobacco: Never Alcohol Use Standard Drinks/Week Comments Yes 0.8 (1 standard drink = 0.6 oz p ure alcohol) rarely, 1x month Feeling Safe Answer Date Recorded Are you in a relationship wi th someone who hurts you emotionally and/or physically? No 01/21/2025 Food Insecurity Answer Date Recorded Patient needs follow up regardin 03/15/2025 Transportation Needs Answer Date Record ed Patient needs follow up regardin 03/15/2025 Housing Stability Answer Date Recorded Social/Environmental Concerns No concerns Utility Needs Answer Date Recorded Patient needs follow up regardin 03/15/2025 Sex and Gender Information Value Date Recorded Sex Assigned at Not on file Legal Sex Male 12:44 PM CODIFIER Gender Identity Not on file Sexual Orientation Not on file Occupation Industry Job Start Date Job End Date Not on file Not on file Not on file Not on file documented as of this encounter Miscellaneous Notes * Telephone Encounter - Frida Zambrano RN - 05/20/2025 10:26 AM CDT Spoke with patient, having pain when walking to the kitchen rated 5-6/10 pain rating scale. Episodes of pain last around a minute or two after stopping the activity. Difficulty breathing when walkingup 1 flight of stairs. Patient also notes chest pain with tightness in chest/jaw/neck while sittingat his desk working. Frequency of pain while at rest is every 1-2 minutes. Patient states, he almost called an ambulance on Tuesday due to chest pain and RUSSO. Per patient, he had to take 4 breaks while walking up a single flight of stairs to his bedroom on Tuesday. Patient notes swelling with hardness to incision site. Patient also reports feeling light headed this morning. Instructed patient to have family member/EMS drive him to the nearest Emergency Room as soon as we get off the phone. Patient verbalized understanding and agreed with plan of care stating, I will go to [facility] near my house. * Telephone Encounter - Rebeka Borrero - 05/20/2025 8:02 AM CDT Pt states exertion is causing pain in neck, chest & left arm. And is having some swelling at catheter site. Pls call pt to discuss, thanks documented in this encounter Plan of Treatment Upcoming Encounters Date Type Department Care Team (Late st Contact Info) Description 06/07/2025 10:00 AM CDT Office Visit [facility] - [address] [place] [address] Gerry King MD [address] [place] [address] 06/27/2025 9:00 AM CDT Office Visit [facility] [address] [facility] [address] [place] [address] Layla Gonzalez NP [facility] [address] [facility] [address] [place] [address] documented as of this encounter Visit Diagnoses Not on filedocumented in this encounter
--- OUTSIDE RECORDS SUMMARY | 2025-05-20 12:01 | XMS_ITS | Encounter Summary ---
Author Organization [facility] Address [address] [address] Care Team Providers Care Wiring Mechanic Name Role Phone Bowen Juarez MD Primary Care Provider [phone] Bowen Juarez MD Primary Care Provider [phone] Bowen Juarez MD Primary Care Provider [phone] Unknown, Notinfile Primary Care Provider Unavail able No, Physician Primary Care Provider [phone] Maggie Fields MD Primary Care Provider [phone] Referral, Self Unavailable Unavailable Betty Soriano MD Primary Care Provider [phone] Encounter Details Date Type Department Care Team (Late st Contact Info) Description 08/24/2016 Orders Only [facility] ProviderJessenia MD [address] [place] [address] Social History Tobacco Use Types Packs/Day Years Used Date Smoking Tobacco: Never Alcohol Use Standard Drinks/Week Comments Yes 0 (1 standard drink = 0.6 oz pur e alcohol) Sex and Gender Information Value Date Recorded Sex Assigned at Not on file Legal Sex Male 7:37 AM PERSONAL CHEF Gender Identity Male 03/23/2020 7:25 PM CDT Sexual Orientation Straight 03/23/2020 7: 25 PM CDT documented as of this encounter Plan of Treatment Not on file documented as of this encounter Procedures Procedure Name Priority Date/Time Associated Diagnosis Comments CARDIOLOGY REPORT 08/24/2016 CARDIOLOGY REPORT 08/24/2016 documented in this encounter Results * CARDIOLOGY REPORT (08/24/2016) Anatomical Region Laterality Modality Other Narrative 08/24/2016 Ordered by an unspecified provider. Historical Provider [facility] PROCE DURES Final Result * CARDIOLOGY REPORT (08/24/2016) Anatomical Region Laterality Modality Other Narrative 08/24/2016 Ordered by an unspecified provider. Historical Provider [facility] PROCE DURES Final Result documented in this encounter Visit Diagnoses Not on filedocumented in this encounter Care Teams Wiring Mechanic Relationship Specialty Start Date End Date Bowen Juarez MD [address] [address] PCP - General 02/11/17 05/24/19 Bowen Juarez MD [address] [address] PCP - General 09/30/16 02/10/17 Bowen Juarez MD [address] [address] PCP - General 12/16/15 09/29/16 Unknown, Notinfile PCP - General 05/25/19 09/06/19 No, Physician PCP - General 09/07/19 01/10/20 Magige Fields MD PCP - General Family Medicine 01/11/20 11/26/21 Betty Soriano MD PCP - General Nurse Practitioner 11/27/21 Referral, Self Referring Physician Otolaryngology 05/14/20 documented as of this encounter
--- OUTSIDE RECORDS SUMMARY | 2025-05-20 12:01 | XMS_ITS | Clinical Summary ---
Author Organization [facility] Address [address] [place] [address] Phone Care Team Providers Care Porcelain Mixer Name Role Phone Unavailable Primary Care Provider Unavailabl e Allergies Active Allergy Reactions Criticality Noted Date Comments Ezetimibe Delirium Medium 05/14/2024 Ibuprofen Anaphylaxis,Shortnes s of Breath/Wheezing High 01/07/2017 Morphine Anaphylaxis,Shortnes s of Breath/Wheezing High 09/20/2019 Medications azelastine (ASTELIN) 137 mcg/actuation nasal spray ADMINISTER 2 SPRAYS IN EACH NOSTRIL 2 TIMES DAILY. 30 mL 9 11/18/19 23 Active ipratropium-alb uteroL (DUONEB) 0.5 mg-3 mg(2.5 mg base)/3 mL Solution for Nebulization TAKE 3 ML BY INHALATION EVERY 6 HOURS NEEDED FOR SHORTNESS OF BREATH OR WHEEZING. DX: J45.40 (ASTHMA) 1080 mL 04/18/20 23 Active pantoprazole (PROTONIX) 40 mg Tablet, Delayed Release (E.C.) Take 40 mg by mouth daily. Active montelukast (SINGULAIR) 10 mg tablet Take 1 Tablet by mouth daily. 01/10/20 23 Active Cetirizine 10 mg Capsule cetirizine Active albuterol sulfate HFA 90 mcg/actuation aerosol inhaler INHALE 2 PUFFS BY MOUTH EVERY 4 HOURS NEEDED FOR WHEEZE OR FOR SHORTNESS OF BREATH Active tiotropium (SPIRIVA RESPIMAT) 1.25 mcg/actuation Mist Take 2 Puffs by inhalation daily. 4 Gram 07/07/20 23 Active Additional Information Patient not taking.Reported on 02/07/2025 ipratropium bromide (ATROVENT) 21 mcg (0.03 %) [place], Non-Aerosol Administer 2 Sprays in each nostril 2 times daily. 30 mL 4 03/12/20 24 Active Additional Information Patient not taking.Reported on 02/07/2025 hydroCHLOROthia zide (MICROZIDE) 12.5 mg capsule Take 12.5 mg by mouth. 05/10/20 24 Active prasugreL (EFFIENT) 10 mg Tablet take 1 tablet by mouth every day 90 Tablet 3 07/02/20 24 Active famotidine (PEPCID) 40 mg tablet TAKE 1 TABLET BY MOUTH LATE IN THE DAY 90 Tablet 1 07/25/20 24 Active Zepbound 5 mg/0.5 mL Pen Injector INJECT 5 MG INTO THE SKIN ONCE A WEEK. INDICATIONS: WEIGHT LOSS 12/03/19 25 Active apixaban (ELIQUIS) 5 mg tablet Take 1 Tablet (5 mg) by mouth 2 times daily. 60 Tablet 11 12/07/19 25 Active lisinopriL (PRINIVIL) 40 mg tablet Take 1 Tablet (40 mg) by mouth daily. 90 Tablet 3 12/13/19 25 Active rosuvastatin (CRESTOR) 40 mg tablet Take 1 Tablet (40 mg) by mouth daily. 90 Tablet 3 12/13/19 25 Active fluticasone propion-salmete roL (Advair Diskus) 500-50 mcg/dose disk inhaler Take 1 Puff by inhalation 2 times daily. 180 Each 2 02/21/20 25 Active isosorbide mononitrate (IMDUR) 60 mg Extended Release 24 hour tablet TAKE 1 TABLET BY MOUTH EVERY DAY 90 Tablet 2 04/17/20 25 Active nebivoloL (BYSTOLIC) 10 mg Tablet TAKE 1 TABLET BY MOUTH EVERY DAY 90 Tablet 1 04/25/20 25 Active dilTIAZem (DILACOR XR) 240 mg Extended Release capsule Take 1 Capsule (240 mg) by mouth daily. 30 Capsule 2 05/01/20 25 Active furosemide (LASIX) 20 mg tabletIndicatio ns:Ankle swelling, unspecified laterality Take 1 Tablet (20 mg) by mouth daily. 10 Tablet 05/16/20 25 Active furosemide (LASIX) 20 mg tabletIndicatio ns:Ankle swelling, unspecified laterality TAKE 1 TABLET BY MOUTH EVERY DAY 90 Tablet 1 07/23/20 24 2024 Discontinued(R eorder) nebivoloL (BYSTOLIC) 10 mg Tablet take 1 tablet by mouth every day 90 Tablet 1 09/03/20 24 2024 Discontinued dilTIAZem (CARDIZEM CD) 360 mg Controlled Delivery 24 hour capsule Take 1 Capsule (360 mg) by mouth daily. 30 Capsule 11 01/23/20 25 2024 Discontinued(A lternate therapy prescribed) colchicine (COLCRYS) 0.6 mg tablet Take 1 Tablet (0.6 mg) by mouth 2 times daily for 2 days. 4 Tablet 05/13/202024 Hospital, Clinic, or Other Facility Administered Medication Ordered Dose Route Frequency Start Date End Date Status heparin 1,000 Units in sodium chloride 0.9 % 1,000 mL solutionIndicatio ns:Paroxysmal atrial fibrillation (CMS/HCC) Irrigation INTRA-PROCEDUR E ONCE 04/18/2025 05/13/20 Discontinued Active Problems Patient Care Coordination No te Formatting of this note migh t be different from the original. Ict Development Manager Dr. King [place] Problem Noted Date Diagnosed Date Chest pain 01/22/2025 PFO (patent foramen ovale) 12/07/2024 Paroxysmal atrial fibrillation 09/26/2024 Atrial fibrillation 09/17/2024 Palpitations 09/17/2024 Persistent atrial fibrillation 09/17/2024 Coronary artery disease invo lving hoh coronary artery of hoh heart without angina pectoris 05/14/2024 Mixed hyperlipidemia 05/14/2024 Localized edema 05/14/2024 Asthma, chronic, moderate pe rsistent, with acute exacerbation 03/22/2024 Weight gain 03/22/2024 Morbid obesity with body mass index of 40.0-49.9 03/22/2024 Personal history of ID (myocardial infarction) 0 05/21/2022 Multiple pulmonary nodules d etermined by computed tomography of lung 05/21/2022 Essential hypertension 05/21/2022 Asbestos exposure 05/21/2022 Current chronic use of inhaled steroid 2 Stented coronary artery 05/21/2022 History of 2019 novel coronavirus disease (COVID -19) 04/23/2022 Passive smoke exposure 04/23/2022 Chronic cough 04/23/2022 Multiple persistent symptoms after COVID-19 04/14 Chronic seasonal allergic rhinitis due to pollen 04/23/2022 Atypical migraine 11/27/2013 Facial numbness 10/03/2013 Overview (10/05/2013): 10/05/2013 Pt admitted with episode of transient [...] Problem Noted Date Diagnosed Date Resolved Date Severe obesity (BMI 35.0-39. 9) with comorbidity 06/03/2023 03/22/2024 Moderate persistent reactive airways dysfunction syndrome without complication 08/30/2022 03/22/2024 Morbid obesity with body mas s index of 40.0-49.9 05/21/2022 06/03/2023 Reactive airways dysfunction syndrome, mild persistent, uncomplicated 05/21/2022 03/22/2024 Unsteady gait 10/03/2013 11/27/2013 Encounters Date Type Department Care Team Description 05/20/2025 Telephone [facility] V[facility] At [address] [place] [address] Neri Thomson MD post ablation question 05/16/2025 Telephone [facility] Heart and Vascular - [address] [place] [phone] Gerry King MD Surgery Talk 05/15/2025 Telephone [facility] HEART AND VASCULAR EP AT [address] [place] [address] Neri Thomson MD Shortness of breath 05/13/2025 7:40 AM CDT Anesthesia Event [facility] [address] [place] [phone] Kevin Barron MD Waqar, Arshia, AA-C 05/13/2025 7:30 AM CDT - 05/13/2025 10:02 AM CDT Surgery [facility] [address] [place] [address] Neri Tohmson MD PVI ablation 05/13/2025 5:33 AM CDT - 05/13/2025 4:34 PM CDT Hospital Encounter [facility] Interventional Care [address] [place] [address] Neri Thomson MD PAF (paroxysmal atrial fibrillation) ([facility]) Discharge Disposition: Home or Self Care 05/13/2025 5:30 AM CDT - 05/13/2025 11:59 PM CDT Hospital Encounter [facility] Laboratory Services [address] [facility] [place] [address] Henri Arriaga MD Discharge Disposition: Home or Self Care 05/12/2025 Travel 05/09/2025 1:29 PM CDT - 05/09/2025 11:59 PM CDT Hospital Encounter [place] [address] [place] [address] Neri Thomson MD Discharge Disposition: Home or Self Care 05/01/2025 Telephone [facility] Heart and Vascular At [address] [place] [address] Neri Thomson MD Low heart rate 04/25/2025 Refill [facility] Heart and Vascular [address] [place] [phone] Gerry King MD 04/23/2025 External Device Data STL ABSTRACTION Provider, Abstract 04/23/2025 External Device Data [facility] ABSTRACTION Provider, Abstract 04/23/2025 External Device Data [place] ABSTRACTION Provider, Abstract 04/22/2025 Telephone [facility] HEART AND VASCULAR EP AT [address] [place] [address] Neri Thomson MD Ablation instruction letter 04/18/2025 Orders Only [facility] HEART AND VASCULAR EP AT [address] [place] [address] Neri Thomson MD Paroxysmal atrial fibrillation (CMS/HCC) (Primary Dx) 04/18/2025 Prep for Surgery [facility] HEART AND VASCULAR EP AT [address] [place] [address] Neri Thomson MD Paroxysmal atrial fibrillation (CMS/HCC) (Primary Dx) 04/17/2025 Refill [facility] Heart and Vascular [address] [place] [address] Gerry King MD 04/16/2025 External Device Data STL ABSTRACTION Provider, Abstract 03/19/2025 External Device Data STL ABSTRACTION Provider, Abstract 02/20/2025 Orders Only [facility] Pulmonology [address] [place] [address] Brenda Cao RN 02/19/2025 External Device Data STL ABSTRACTION Provider, Abstract 02/19/2025 External Device Data STL ABSTRACTION Provider, Abstract from Last 3 Months Family History Medical History Relation Name Comments Cancer Brother lymphoma Diabetes Brother Cancer Father prosthate Heart Disease Father High Cholesterol Father Hypertension Father Hypertension Mother Alzheimer's Disease Paternal Grandfather Relation Name Status Comments Brother Father Mother Paternal Grandfather Social History Tobacco Use Types Packs/Day Years [...] on file 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 Gender Identity Not on file Sexual Orientation Not on file Occupation Industry Job Start Date Job End Date Not on file Not on file Not on file Not on file Last Filed Vital Signs Vital Sign Reading Time Taken Comments Blood Pressure 143/98 05/13/2025 10:30 AM CDT Pulse 60 05/13/2025 10:30 AM CDT Temperature 35.9 C (96.6 F) 05/13/2025 9:53 AM CDT Respiratory Rate 17 05/13/2025 10:30 AM CDT Oxygen Saturation 100% 05/13/2025 10:30 AM CDT Inhaled Oxygen Concentration - - Weight 124.7 kg (275 lb) 05/13/2025 6:00 AM CDT Height 188 cm (6' 2) 05/13/2025 6:00 AM CDT Body Mass Index 35.31 05/13/2025 6:00 AM CDT Plan of Treatment Upcoming Encounters Date Type Department Care Team (Late st Contact Info) Description 06/07/2025 10:00 AM CDT Office Visit [facility] Heart and Vascular - [address] [place] [phone] Gerry King MD [address] [place] [phone] 06/27/2025 9:00 AM CDT Office Visit [facility] HEART AND VASCULAR EP AT [address] [place] [address] Layla Gonzalez NP [facility] [address] [place] [address] Health Maintenance Due Date Last Done Comments Pre-Diabetes and Diabetes Screening 1980 HEPATITIS B VACCINES (1 of 3 - 19+ 3-dose series) 1998 11/23/2023, 03/12/2021, 01/25/2020 COVID-19 Vaccine ( season) 2024 03/02/2021, 02/09/2021 COLORECTAL SCREENING 2024 Colorectal Cancer Screening 2024 FIT-DNA Q 3 years 2024 FIT/FOBT Q 1 year 2024 Flex Sig/CT Colonography Q 5 years 2024 INFLUENZA VACCINE (#1) 2025 4, 11/23/2023, 10/18/2022, Additional history exists DTAP/TDAP/TD VACCINES (2 - Td or Tdap) 01/21/2030 01/22/2020 HPV VACCINES Aged Out No longer eligi ble based on patient's age to complete this topic Medical Devices Implanted Type Area Amusement Machine Mechanic Device Identifier Shelf Expiration Date Model / Serial / Lot Dev Vns Vasc Clsr Vascade Mvp St [id number] - [id number] Implanted:Qty : 1 on 05/13/2025 by Neri Thomson MD at [facility] Closure Device Left: Groin [employer] [id number] 03/19/2027 800-612C- 10U / / [id number] Dev Vns Vasc Clsr Vascade Mvp St [id number] - [id number] Implanted:Qty : 1 on 05/13/2025 by Neri Thomson MD at [facility] Closure Device Left: Groin [employer] [id number] 03/19/2027 800-612C- 10U / / [id number] 12A Dev [employer] Vascade Mvp Xl Vvcs 10-12fr 800-1012xl - [id number] Implanted:Qty : 1 on 05/13/2025 by Neri Thomson MD at [facility] Closure Device Right: Groin [employer] [id number] 12/13/2026 800-1012X L / / [id number] Dev Vns Vasc Clsr Vascade Mvp St [id number] - [id number] Implanted:Qty : 1 on 05/13/2025 by Neri Thomson MD at [facility] Closure Device Right: Groin [employer] [id number] 03/19/2027 800-612C- 10U / / [id number] 12A Procedures Procedure Name Priority Date/Time Associated Diagnosis Comments PVI ABLATION Routine 05/13/2025 9:24 AM CDT PAF (paroxysmal atrial fibrillation) (CMS/HCC) POC ACTIVATED CLOTTING TIME Routine 05/13/2025 9:10 AM CDT [place] ANES INSERT CATH, ART, PERCUT, SHORTTERM Routine 05/13/2025 8:55 AM CDT POC ACTIVATED CLOTTING TIME Routine 05/13/2025 8:48 AM CDT [place] ANES INSERT ENDOTRACHEAL AIRWAY Routine 05/13/2025 7:59 AM CDT VERIFICATION BLOOD GROUP Stat 05/13/2025 5:50 AM CDT Encounter for blood typing TYPE AND SCREEN Stat 05/09/2025 1:45 PM CDT PROTIME-INR Routine 05/09/2025 1:45 PM CDT Paroxysmal atrial fibrillation (CMS/HCC) MAGNESIUM LEVEL Routine 05/09/2025 1:45 PM CDT Paroxysmal atrial fibrillation (CMS/HCC) CBC WITH DIFFERENTIAL Routine 05/09/2025 1:45 PM CDT Paroxysmal atrial fibrillation (CMS/HCC) BASIC METABOLIC PANEL Routine 05/09/2025 1:45 PM CDT Paroxysmal atrial fibrillation (CMS/HCC) TELEMETRY REPORT 02/26/2025 2:35 PM CDT from Last 3 Months Results * PVI ABLATION (05/13/2025 9:24 AM CDT) Narrative [facility] - 05/13/2025 4:44 PM CDT Images from the original result were not included. EPS/AF Ablation Operative Report Hx: 44 y/o WM with history of recurrent symptomatic paroxysmal atrial fibrillation who presents for elective EPS/ablation. Procedure Summary: 1. At baseline patient in sinus rhythm 2. Procedure performed under general anesthesia 3. Successful double trans-septal puncture under ICE guidance 4. Using 3D Anatomic mapping (CARTO), 4 pulmonary veins, esophageus(using temperature probe) identified and left atirum shell created. 5. Using Farawave PFA system, isolation performed of all four pulmonary veins Recommendations 1. The patient should follow-up in 6-8 weeks 2. The patient should continue their anticoagulation until follow up 3. No heavy lifting for a week 4. Colchicine for 48h Hob Grinder: Neri Thomson MD Procedure Performed 1. (EP study complete with 3D mapping, EP study with left atrial recording and pacing, Transeptal Puncture, Intracardiac echo, Ablation of atrial fibrillation by pulmonary vein isolation, US guided venous access) - [id number] Anesthesia: general Operative Course: After discussing the risks/benefits of atrial fibrillation ablation including but not limited to bleeding complications, hematoma, DVT, pulmonary embolism, pulmonary vein stenosis, heart block requiring pacemaker, atria-esophogeal fistuala requiring repair, myocardial perforation, phrenic nerve paralysis, stroke and or ; with a major complication rate of < 1%. General anesthesia was utilized. Please see nursing notes for drug totals.The patient had presented in sinus rhythm. Access was obtained by modified Seldinger technique to bilateral femoral veins. One 8 yoruba sheath placed in the right femoral vein using ultrasound and a 9 and 8 yoruba sheath was placed in the left femoral vein using ultrasound. Under ultrasound guidance, documentation of vessel patency, needle access with permanent recording, and reporting was performed followed by placement of a sheath in the femoral veins. All sheaths were flushed appropriately. Under ICE and 3D mapping guidance, all catheters were placed including a ten pole CS catheter in the CS. An intracardiac echo Accunav phased array catheter was inserted into the right atrium and was utilized to visualize the heart in real-time throughout the procedure. Using ICE guidance we advanced the Farawave sheath into the SVC over guide wire. The sheath assembly was lowered until tenting was seen on ICE. A mid/anterior transseptal position was chosen. Using a RF wire, the septum was crossed and the RF wire was placed in the LSPV. Sheath assembly advanced over wire into the LA. The dilator and wire were moved while performing negative aspiration on the sheath. Meticulous sheath inspection was performed with any catheter exchange thru the large bore sheath. We then removed the HD mapping catheter and advanced the Farawave catheter over guide wire into the left atrium. Subsequently using ICE, 3D mapping guidance, the guide wire was sequentially placed in each of the four pulmonary veins and the Farawave catheter was placed in each pulmonary vein with a minimum of 8 PFA applications per vein in basket and flower configurations respectively. The Farawave catheter was then removed and the high density mapping catheter was placed back in the LA and a voltage map was created. Voltage mapping along with differential pacing from within the pulmonary veins demonstrated exit block and pulmonary vein isolation. IV protamine was given after a test dose, sheaths were removed in the EP lab, hemostasis was obtained using Vascade closure devices and the patient was sent to the recovery room in stable condition. At end of case no effusion noted. Pre ablation surface EKG RR 868 [place] 158 QRS 92 QT 370 Post ablation surface EKG and EPS as below: Post RR 900 [place] 184 QRS 96 QT 400 AH 86 HV 42 AVWB 340ms AVNERP 600/320ms Total PFA applications: 34 Neri Thomson MD Estimated Blood Loss There was minimal blood loss during procedure. Neri Thomson MD CUP EP ORDERABLES Final Result Performing Organization Address City/State/[facility] Co de Phone Number [facility]ART AND VASCULAR [facility]# [id number] [address] [facility] [address] [place] [address] * (ABNORMAL) POC ACTIVATED CLOTTING TIME (05/13/2025 9:10 AM CDT) Only the most recent of2 resultswithin the time period is included. ACTIVATED CLOTTING TIME POC 228(H) 74 - 137 sec 05/13/2025 9:10 AM CDT [facility] Comment:ACT testing performe d on ISTAT ACT-Kaolin cartridge. Blood 05/13/2025 9:10 AM CDT 05/13/2025 9:13 AM CDT Neri Thomson MD POINT OF CARE TESTING Final Resu lt [facility]# [id number] [place] [address] * [place] ANES INSERT CATH, ART, PERCUT, SHORTTERM (05/13/2025 8:55 AM CDT) Narrative Deacon Peguero AA-C - 05/13/2025 8:55 AM CDT Deacon Peguero AA-C 05/13/2025 8:58 AM Arterial Line Insertion End Time: 05/13/2025 7:20 AM Patient location during procedure: Pre-op Staffing Performed: ORACLE BPM DEVELOPER/CAA Authorized by: Kevin Barron MD Performed by: Deacon Peguero AA-C time out called Patient was prepped and draped in usual sterile fashion Indications: hemodynamic monitoring Local Anesthetic: lidocaine 1% without epinephrine Anesthetic total: 1 mL Hand hygiene performed prior to procedure Sterile Barriers: gloves, mask and cap Preparation: skin prepped with ChloraPrep Skin prep agent dried: skin prep agent completely dried prior to procedure Patient position: flat Location: right radial Site selection rationale: best pulse palpated modified Seldinger technique used Catheter type: radial kit Catheter size: 20 G Catheter Length (in.): 1.75 [place] Identification: ultrasound guided Number of attempts: 1 Successful placement: yes Assessment: blood return through port Procedure uneventful Post-procedure: dressing applied and line secured Kevin Barron MD PROCEDURE/MINOR SURGICAL ORDE RABMILENA Final Result * [place] ANES INSERT ENDOTRACHEAL AIRWAY (05/13/2025 7:59 AM CDT) Narrative Deacon Peugero AA-C - 05/13/2025 7:59 AM CDT Deacon Peguero AA-C 05/13/2025 8:42 AM Airway Date/Time: 05/13/2025 7:59 AM Location: OR Plan: elective intubation Patient Identity Confirmed by: Armband Airway: not difficult Staffing Performed: ORACLE BPM DEVELOPER/CAA Authorized by: Kevin Barron MD Performed by: Deacon Peguero AA-C Indications and Patient Condition: Indications for Airway Management: Anesthesia Sedation Level: general anesthesia Preoxygenated: yes Patient Position: Sniffing Mask Difficulty Assessment: 3 - difficult mask (inadequate, unstable or two providers) +/- NMBA Plan to extubate at end of case: Yes Final Airway Details: Final Airway Type: Endotracheal airway ETT Cuffed: Yes Cuff Volume (mL): 8 Technique Used for Successful ETT Placement: Video laryngoscopy Devices/Methods Used in Placement: Intubating stylet Reason for advanced technique: intraoperative decision Blade Size: 3 Insertion Site: Oral ETT Size (mm): 7.0 Video Laryngoscopy Devices: GlideScope Measured from: Teeth ETT to Teeth (cm): 23 Tube secured with: Tape Placement Verified by: auscultation, end tidal CO2 and chest rise Cormack-Lehane Classification: Grade I - full view of glottis Number of Attempts at Approach: 1 Additional Procedure Information: atraumatic and dentition unchanged Kevin Barron MD PROCEDURE/MINOR SURGICAL ORDE JULIUS Final Result * VERIFICATION BLOOD GROUP (05/13/2025 5:50 AM CDT) ABO GROUP A 05/13/2025 7:26 AM CDT [facility] RH (D) TYPE Positive 05/13/2025 7:26 AM CDT [facility] Blood Venipuncture / Unknown 05/13/2025 5:50 AM CDT 05/13/2025 6:06 AM CDT Carrie Hopper MD BLOOD BANK ORDERABLES Final Result [facility] CLIA# [id number] [address] [facility] [place], [place] [id number] * (ABNORMAL) CBC WITH DIFFERENTIAL (05/09/2025 1:45 PM CDT) WBC 10.6(H) 4.0 - 9.8 K/uL 05/09/2025 2:21 PM CDT [facility] RBC 4.97 4.50 - 5.40 M/uL 05/09/2025 2:21 PM CDT [facility] HEMOGLOBIN 15.9 13.6 - 16.5 g/dL 05/09/2025 2:21 PM CDT [facility] HEMATOCRIT 45.6 40.0 - 48.0 % 05/09/2025 2:21 PM CDT [facility] MCV 91.8 82.0 - 99.0 fL 05/09/2025 2:21 PM CDT [facility] MCH 32.0 27.2 - 32.6 pg 05/09/2025 2:21 PM CDT [facility] MCHC 34.9 31.5 - 35.5 g/dL 05/09/2025 2:21 PM CDT [facility] RDW 12.3 11.5 - 14.5 % 05/09/2025 2:21 PM CDT [facility] - . [facility] RDW-STDEV 40.8 37.1 - 48.7 fL 05/09/2025 2:21 PM CDT [facility] - . [facility] PLATELETS 257 140 - 350 K/uL 05/09/2025 2:21 PM CDT [facility] MPV 8.7(L) 9.3 - 12.4 fL 05/09/2025 2:21 PM CDT [facility] NEUTROPHILS 55 % 05/09/2025 2:21 PM CDT [facility] LYMPHOCYTES 33 % 05/09/2025 2:21 PM CDT [facility] MONOCYTES 10 % 05/09/2025 2:21 PM CDT [facility] EOSINOPHILS 1 % 05/09/2025 2:21 PM CDT [facility] BASOPHILS 1 % 05/09/2025 2:21 PM CDT [facility] IMMATURE GRANULOCYTES 1 % 05/09/2025 2:21 PM CDT [facility] Comment:IG (Immature Granulo cyte) count includes Metamyelocytes, Myelocytes, and Promyelocytes NEUTROPHIL ABSOLUTE 5.79 1.90 - 7.00 K/uL 05/09/2025 2:21 PM CDT [facility] - [facility] LYMPHOCYTE ABSOLUTE 3.44 0.70 - 4.50 K/uL 05/09/2025 2:21 PM CDT [facility] - . [facility] MONOCYTE ABSOLUTE 1.02 0.10 - 1.30 K/uL 05/09/2025 2:21 PM CDT [facility] EOSINOPHIL ABSOLUTE 0.12 0.00 - 0.70 K/uL 05/09/2025 2:21 PM CDT [facility] - [facility] BASOPHILS ABSOLUTE 0.11 0.00 - 0.20 K/uL 05/09/2025 2:21 PM CDT [facility] [place] [facility] IMMATURE GRANULOCYTES ABSOLUTE 0.08(H) 0.00 - 0.03 K/uL 05/09/2025 2:21 PM CDT [facility] [place] Blood Venipuncture / Unknown 05/09/2025 1:45 PM CDT 05/09/2025 2:16 PM CDT Neri Thomson MD HEMATOLOGY ORDERABLES Final Resu lt [facility] [employer] [facility]# [id number] [address] [facility] [place] [address] * PROTIME-INR (05/09/2025 1:45 PM CDT) PROTIME 13.6 12.7 - 15.1 Seconds 05/09/2025 2:31 PM CDT [facility] [place] INR 1.0 0.9 - 1.1 05/09/2025 2:31 PM CDT [facility] [place] Blood Venipuncture / Unknown 05/09/2025 1:45 PM CDT 05/09/2025 2:16 PM CDT Narrative [facility] [place] - 05/09/2025 2:31 PM CDT INR Therapeutic Range: Adult: 2.0 - 3.0 for pulmonary embolism or prophylaxis against venous thrombosis or systemic embolization. 2.0 - 3.0 for patients with tissue heart valves. 2.5 - 3.5 for patients with mechanical heart valves or post ID. Pediatric (12 years and under): 1.5 - 3.0 Although the target range in children is not well established, INR values of 1.5 - 3.0 are recommended for most patients. Higher values have been used in children with prosthetic cardiac valves and hereditary clotting disorders. (<3 days) therapeutic ranges have not been established. us Neri Thomson MD HEMATOLOGY ORDERABLES Final Resu lt Performing Organization Address City/[facility]/ZIP Co de Phone Number [facility] [place] CLIA# [id number] [address] [place] [address] * TYPE AND SCREEN (05/09/2025 1:45 PM CDT) ABO GROUP A 05/09/2025 4:46 PM CDT [facility] [place] -- [facility] RH (D) TYPE Positive 05/09/2025 4:46 PM CDT [facility] ANTIBODY SCREEN Negative 05/09/2025 4:46 PM CDT [facility] [place] Blood Venipuncture / Unknown 05/09/2025 1:45 PM CDT 05/09/2025 2:16 PM CDT Neri Thomson MD BLOOD BANK ORDERABLES Edited Res ult - Final Performing Organization Address City/[facility]/ZIP Co de Phone Number [facility] [id number] [address] [place] [address] * MAGNESIUM LEVEL (05/09/2025 1:45 PM CDT) MAGNESIUM 2.2 1.6 - 2.6 mg/dL 05/09/2025 2:52 PM CDT [facility] [place] Blood Venipuncture / Unknown 05/09/2025 1:45 PM CDT 05/09/2025 2:16 PM CDT Neri Thomson MD CHEMISTRY ORDERABLES Final Resul t [facility] [place] - [facility]# [id number] [address] [place] [address] * BASIC METABOLIC PANEL (05/09/2025 1:45 PM CDT) SODIUM 138 136 - 145 mmol/L 05/09/2025 2:52 PM CDT [facility] [place] POTASSIUM 4.0 3.5 - 5.0 mmol/L 05/09/2025 2:52 PM T [facility] [place] - . [facility] CHLORIDE 103 98 - 107 mmol/L 05/09/2025 2:52 PM T [facility] [place] - . [place] CO2 24 22 - 29 mmol/L 05/09/2025 2:52 PM T [facility] [place] - . [facility] CALCIUM 9.0 8.6 - 10.2 mg/dL 05/09/2025 2:52 PM T [facility] [place] - . [place] BUN 14 6 - 20 mg/dL 05/09/2025 2:52 PM T [facility] [place] - . [facility] CREATININE 1.17 0.67 - 1.17 mg/dL 05/09/2025 2:52 PM T [facility] [place] - . [facility] GLUCOSE 80 74 - 99 mg/dL 05/09/2025 2:52 PM [facility] - . [facility] GFR >60 >=60 mL/min/1.7 3 sq meter 05/09/2025 2:52 PM T [facility] [place] - [facility] Comment:eGFR calculated with 2020 CKD-EPI equation. Vegetarian diet, extremely high or low muscle mass, and may affect results. Cystatin C with Glomerular Filtration Rate is a suitable alternative for these patients. ANION GAP 11 8 - 16 mmol/L 05/09/2025 2:52 PM T [facility] [place] Blood Venipuncture / Unknown 05/09/2025 1:45 PM CDT 05/09/2025 2:16 PM CDT Neri Thomson MD CHEMISTRY ORDERABLES Final Resul t [facility]# [id number] [address] [place] [address] * TELEMETRY REPORT (02/26/2025 2:35 PM CDT) Provider Scanning ECG ORDERABLES Final Result from Last 3 Months Insurance [facility] [id number] Advance Directives For more information, please contact: [phone] * Full Code (Latest Code Status on File) Date Activated Date Inactivated Comments 05/13/2025 5:35 AM 05/13/2025 6:34 PM * Full Code Date Activated Date Inactivated Comments 01/22/2025 3:41 AM 01/22/2025 12:18 PM * Full Code Date Activated Date Inactivated Comments 09/17/2024 2:47 PM 09/18/2024 5:10 PM * Full Code Date Activated Date Inactivated Comments 10/03/2013 5:28 PM 10/05/2013 12:28 PM
--- NOTE | 2025-05-20 12:29 | ED_ITS ---
HPI - Chest Pain General Chief Complaint: Chest Pain <Irma Redmond PA-C - Last Filed: 05/21/25 09:21> Stated Complaint: chest pain <Irma Redmond PA-C - Last Filed: 05/21/25 09:21> Time Seen by Provider: 05/20/25 12:29 <Irma Redmond PA-C - Last Filed: 05/21/25 09:21> Focused HPI: This is a 44 year old male that presents to the ER for chest pain. Reports he had a cardiac ablation one week ago at [facility]. He has continued to have chest tightness, exertional shortness of breath, pain in the left arm/jaw/neck. Reports he called his fuel handler this morning and was prompted to be seen at the nearest ER. Reports history of CAD, afib. Reports swelling in his right groin where his access site was. GENERAL: Well-appearing, well-nourished, and in no acute distress. HEAD: Normocephalic, atraumatic. CHEST: Clear to auscultation. ?No respiratory distress. HEART: Bradycardic, regular rhythm.? NEURO: ?Alert and oriented x3. Patient screened in triage and initial orders placed.? ?Additional care and disposition to be based upon?diagnostic testing and treatment. <Irma Redmond PA-C - Last Filed: 05/21/25 09:21> History of Present Illness HPI narrative: as pr mse. Pt says has 5 vessel cabg in pas and last cardiac cath was over [address] King in past but not since he moved. Pt not having pain now. <Chrissy Miles III, DO - Last Filed: 05/20/25 21:40> Related Data Home Medications: Home Medications ?Medication ?Instructions ?Recorded ?Confirmed ?Last Taken ?Type aspirin 81 mg chewable tablet 81 mg PO DAILY 06/18/20 08/07/24 11/02/22 History isosorbide mononitrate 60 mg 60 mg PO DAILY 06/18/20 08/07/24 11/02/22 History tablet,extended release 24 hr lisinopril 40 mg tablet 40 mg PO DAILY 06/18/20 08/07/24 11/02/22 History rosuvastatin 40 mg tablet 40 mg PO HS 08/12/20 08/07/24 11/01/22 History nebivolol 20 mg tablet (Bystolic) 10 mg PO DAILY 12/07/22 08/07/24 Unknown History cetirizine 10 mg capsule (Zyrtec) 10 mg PO PRN allergies 08/07/24 08/07/24 Unknown History fluticasone 500 mcg-salmeterol 50 1 inh inhalation BID 08/07/24 08/07/24 Unknown History mcg/dose blistr powdr for inhalation (Wixela Inhub) lansoprazole 30 mg capsule,delayed 30 mg PO DAILY 08/07/24 08/07/24 Unknown History release montelukast 10 mg tablet 10 mg PO DAILY 08/07/24 08/07/24 Unknown History prasugrel HCl 10 mg tablet 10 mg PO DAILY 08/07/24 08/07/24 Unknown History tirzepatide (weight loss) 5 mg/0.5 5 mg subcut WEEKLY 08/07/24 08/07/24 1 Week Ago History mL subcutaneous pen injector ~07/31/24 (Zepbound) <Irma Redmond PA-C - Last Filed: 05/21/25 09:21> Allergies/Adverse Reactions: Allergies Allergy/AdvReac Type Severity Reaction Status Date / Time ibuprofen Allergy Mild Dyspnea / Verified 08/07/24 10:07 SOB morphine Allergy Unknown Dyspnea / Verified 08/07/24 10:07 SOB <Irma Redmond PA-C - Last Filed: 05/21/25 09:21> Review of Systems 2 Review of Systems: All systems reviewed & are unremarkable except as noted in HPI and below <Chrissy Rl Miles III, DO - Last Filed: 05/20/25 21:40> [facility] Past Medical History Medical History: Medical History Chronic GERD Coronary artery disease Head injury History of gastroesophageal reflux (GERD) Hypercholesteremia Hypertension <Irma Redmond PA-C - Last Filed: 05/21/25 09:21> Surgical History Surgical History: Surgical History History of cardiac catheterization History of coronary artery stent placement History of craniotomy 04/2020 <Irma Redmond PA-C - Last Filed: 05/21/25 09:21> Family History Family History: Family History Father Heart valve problem Malignant neoplasm of prostate Cerebrovascular accident Mother Hypertension <LANDON Lerner Last Filed: 05/21/25 09:21> Social History Social History: Social History Social History: Lives at home with his and 2 children. They have a dog. Lifelong nonsmoker. Drinks 2-3 alcoholic drinks per week. No drug use. Full code. He nominates his to be the individual would make medical decisions for him if he is not able.cvs Smoking status: Never smoker Tobacco type: cigarettes Second hand tobacco smoke exposure: Yes Alcohol intake: current Drinks per week: 4 Substance use: never Substance use type: does not use Lack of Transportation: No Lack of Food: Never True Current Housing: I Have Housing Concerned About Future Housing: No Difficulty Paying Gas/Electric Bills: No Difficulty Paying for Meds: No Currently Unemployed: No Education: Bachelor's Degree Difficulty w/ Childcare or Family Care: No Living arrangements: with family Occupation/Education: occupation Gender identity (if verbalized by the patient): Male Sexual Orientation (if Verbalized by the Patient): Straight or Heterosexual Spiritual care concerns: No <Irma Redmond PA-C - Last Filed: 05/21/25 09:21> Exam 2 Const: General: healthy appearing, no acute distress and alert <Chrissy Rl Miles III, DO - Last Filed: 05/20/25 21:40> Nutritional Appearance: well nourished <Chrissy Rl Miles III, DO - Last Filed: 05/20/25 21:40> Orientation/consciousness: patient oriented x3 <Chrissy Rl Miles III, DO - Last Filed: 05/20/25 21:40> Limitations: no limitations <Chrissy Rl Miles III, DO - Last Filed: 05/20/25 21:40> Neck: Neck: normal visual inspection <Chrissy Shine Miles III, DO - Last Filed: 05/20/25 21:40> Chest: Chest palpation & inspection: normal inspection of the chest < Chrissy Rl Miles III, DO - Last Filed: 05/20/25 21:40> Resp: Effort & Inspection: normal respiratory effort <Chrissy Rl Miles III, DO - Last Filed: 05/20/25 21:40> Auscultation: clear to auscultation bilaterally <Chrissy Rl Miles III, DO - Last Filed: 05/20/25 21:40> Cardio: Rate: regular rate <Chrissy Rl Miles III, DO - Last Filed: 05/20/25 21:40> Rhythm: regular rhythm <Chrissy Rl Miles III, DO - Last Filed: 05/20/25 21:40> GI: GI Palp: Yes Soft to palpation and No Tenderness to palpation present (GI) <Chrissy Rl Miles III, DO - Last Filed: 05/20/25 21:40> Auscultation: normal bowel sounds <Chrissy Rl Miles III, DO - Last Filed: 05/20/25 21:40> Back/Spine/Pelvis: Back: no CVA tenderness <Chrissy Rl Miles III, DO - Last Filed: 05/20/25 21:40> Skin: General skin exam: normal color <Chrissy Rl Miles III, DO - Last Filed: 05/20/25 21:40> Rashes: no rashes <Chrissy Rl Miles III, DO - Last Filed: 05/20/25 21:40> Wounds: no wounds <Chrissy Rl Miles III, DO - Last Filed: 05/20/25 21:40> Neuro: General: patient oriented x3, moves all extremities, no meningeal signs, no focal motor deficits and CN's II-XI intact bilaterally <Chrissy Rl Miles III, DO - Last Filed: 05/20/25 21:40> Speech: normal speech <Chrissy Rl Miles III, DO - Last Filed: 05/20/25 21:40> Extrem: General: normal to inspection and no clubbing, cyanosis or edema < Chrissy Rl Miles III, DO - Last Filed: 05/20/25 21:40> Psych: Mental Status: mental status grossly normal <Chrissy Rl Miles III, DO - Last Filed: 05/20/25 21:40> Affect: normal affect <Chrissy Rl Miles III, DO - Last Filed: 05/20/25 21:40> Attitude: cooperative <Chrissy Rl Miles III, DO - Last Filed: 05/20/25 21:40> Course Vital Signs Vital signs: Vital Signs Temperature 97.4 F L 05/20/25 12:02 Pulse Rate 49 L 05/20/25 12:02 Respiratory Rate 16 05/20/25 12:02 Blood Pressure 131/86 05/20/25 12:02 Pulse Oximetry 99 05/20/25 12:02 Oxygen Delivery Room Air 05/20/25 12:02 Temperature 97.4 F L 05/20/25 12:02 Pulse Rate 56 L 05/20/25 18:01 Respiratory Rate 18 05/20/25 18:01 Blood Pressure 141/87 H 05/20/25 18:01 Pulse Oximetry 96 05/20/25 18:01 Oxygen Delivery Room Air 05/20/25 13:21 <Irma Redmond PA-C - Last Filed: 05/21/25 09:21> Vital Signs Temperature 97.4 F L 05/20/25 12:02 Pulse Rate 49 L 05/20/25 12:02 Respiratory Rate 16 05/20/25 12:02 Blood Pressure 131/86 05/20/25 12:02 Pulse Oximetry 99 05/20/25 12:02 Oxygen Delivery Room Air 05/20/25 12:02 Temperature 97.4 F L 05/20/25 12:02 Pulse Rate 56 L 05/20/25 18:01 Respiratory Rate 18 05/20/25 18:01 Blood Pressure 141/87 H 05/20/25 18:01 Pulse Oximetry 96 05/20/25 18:01 Oxygen Delivery Room Air 05/20/25 13:21 <Chrissy Rl Miles III, DO - Last Filed: 05/20/25 21:40> MDM - Chest Pain MDM Narrative Medical decision making narrative: Pt having CP and SOB with exertion since cardiac ablation for a fib a week ago. story sounds like unstable angina. awaiting cardiac work up. Pt pain free at the moment. will place nitro paste and give asa. trop slightly elevated, but down on 3hr and ekg unchanged. discussed with Pallavi Meier and thinks need to transfer to [facility] where he had procedure. Discussed with [facility] transfer line and Dr Rosas accepts for transfer. <Chrissy Ochoaver III, DO - Last Filed: 05/20/25 21:40> Lab Data Result diagrams: 05/20/25 12:27 05/20/25 12:27 <Irma Redmond PA-C - Last Filed: 05/21/25 09:21> Labs: Lab Results 05/20/25 05/20/25 Range/Units 12:27 15:12 WBC 9.8 (4.5-10.0) K/mm3 RBC 4.84 (4.6-6.20) M/mm3 Hgb 15.7 (14.0-18.0) g/dL Hct 44.6 (42.0-52.0) % MCV 92.1 (80-100) fl MCH 32.4 (26-34) pg MCHC 35.2 (32-36) g/dl RDW 12.6 (11.5-14.5) % Plt Count 262 (150-375) k/mm3 MPV 8.6 (7.4-10.4) fl Immature Gran % (Auto) 0.9 H (0-0.5) % Neut % (Auto) 59.2 (45.5-73.1) % Lymph % (Auto) 29.3 (18.3-44.2) % [place] % (Auto) 8.7 H (2.6-8.5) % Eos % (Auto) 1.2 (0-4.4) % Baso % (Auto) 0.7 (0.2-1.2) % Lymph # (Auto) 2.87 (0.9-3.2) K/mm3 [place] # (Auto) 0.9 H (0.1-0.6) K/mm3 Eos # (Auto) 0.1 (0-0.3) K/mm3 Baso # (Auto) 0.1 (0.0-0.1) K/mm3 Abs Immat Gran (auto) 0.09 H (0.00-0.031) K/mm3 Absolute Neuts (auto) 5.8 (1.3-6.7) K/mm3 Absolute Nucleated RBC 0.000 (0.0-0.012) K/mm3 Nucleated RBC % 0.0 (0.0-0.2) % PT 14.1 (11.1-14.7) Seconds INR 1.1 APTT 26.0 (22.3-36.8) Seconds Sodium 138 (137-145) mmol/L Potassium 4.0 (3.4-5.0) mmol/L Chloride 102 (98-107) mmol/L Carbon Dioxide 29 (22-30) mmol/L Anion Gap 7 (4-12) mmol/L BUN 14 (9-20) mg/dL Creatinine 1.09 (0.7-1.3) mg/dL Estim Creat Clear Calc 110 ml/min Estimated GFR > 60 (59 - ) Glucose 87 (65-110) mg/dL Calcium 9.2 (8.4-10.2) mg/dL Total Bilirubin 0.7 (0.2-1.3) mg/dL AST 30 (17-59) U/L ALT 25 (6-50) U/L Alkaline Phosphatase 57 (38-126) U/L Troponin I 0.053 H* 0.051 H* (0.000-0.034) ng/mL Total Protein 7.2 (6.3-8.2) g/dL Albumin 4.2 (3.5-5.1) g/dL Lipase 101 (23-300) U/L <Irma Redmond PA-C - Last Filed: 05/21/25 09:21> Lab Results 05/20/25 05/20/25 Range/Units 12:27 15:12 WBC 9.8 (4.5-10.0) K/mm3 RBC 4.84 (4.6-6.20) M/mm3 Hgb 15.7 (14.0-18.0) g/dL Hct 44.6 (42.0-52.0) % MCV 92.1 (80-100) fl MCH 32.4 (26-34) pg MCHC 35.2 (32-36) g/dl RDW 12.6 (11.5-14.5) % Plt Count 262 (150-375) k/mm3 MPV 8.6 (7.4-10.4) fl Immature Gran % (Auto) 0.9 H (0-0.5) % Neut % (Auto) 59.2 (45.5-73.1) % Lymph % (Auto) 29.3 (18.3-44.2) % [place] % (Auto) 8.7 H (2.6-8.5) % Eos % (Auto) 1.2 (0-4.4) % Baso % (Auto) 0.7 (0.2-1.2) % Lymph # (Auto) 2.87 (0.9-3.2) K/mm3 [place] # (Auto) 0.9 H (0.1-0.6) K/mm3 Eos # (Auto) 0.1 (0-0.3) K/mm3 Baso # (Auto) 0.1 (0.0-0.1) K/mm3 Abs Immat Gran (auto) 0.09 H (0.00-0.031) K/mm3 Absolute Neuts (auto) 5.8 (1.3-6.7) K/mm3 Absolute Nucleated RBC 0.000 (0.0-0.012) K/mm3 Nucleated RBC % 0.0 (0.0-0.2) % PT 14.1 (11.1-14.7) Seconds INR 1.1 APTT 26.0 (22.3-36.8) Seconds Sodium 138 (137-145) mmol/L Potassium 4.0 (3.4-5.0) mmol/L Chloride 102 (98-107) mmol/L Carbon Dioxide 29 (22-30) mmol/L Anion Gap 7 (4-12) mmol/L BUN 14 (9-20) mg/dL Creatinine 1.09 (0.7-1.3) mg/dL Estim Creat Clear Calc 110 ml/min Estimated GFR > 60 (59 - ) Glucose 87 (65-110) mg/dL Calcium 9.2 (8.4-10.2) mg/dL Total Bilirubin 0.7 (0.2-1.3) mg/dL AST 30 (17-59) U/L ALT 25 (6-50) U/L Alkaline Phosphatase 57 (38-126) U/L Troponin I 0.053 H* 0.051 H* (0.000-0.034) ng/mL Total Protein 7.2 (6.3-8.2) g/dL Albumin 4.2 (3.5-5.1) g/dL Lipase 101 (23-300) U/L <Chrissy Miles III, DO - Last Filed: 05/20/25 21:40> Imaging Data Radiologist's impression: ITS Impressions Chest X-Ray 05/20/25 14:46 IMPRESSION: No acute process. <Irma Redmond PA-C - Last Filed: 05/21/25 09:21> Discharge Plan Discharge Clinical Impression: Angina pectoris Chest pain Qualifiers: Chest pain type: unspecified Qualified Code(s): R07.9 - Chest pain, unspecified <Irma Redmond PA-C - Last Filed: 05/21/25 09:21> Patient Disposition: Acute Care Hospital <Irma Redmond PA-C - Last Filed: 05/21/25 09:21> Condition: Serious <LANDON Lerner Last Filed: 05/21/25 09:21> Patient Language: Tuvaluan <LANDON Lerner Last Filed: 05/21/25 09:21> Prescriptions: No Action nebivolol [Bystolic] 20 mg Tablet 10 mg PO DAILY lansoprazole 30 mg capsule,delayed release(DR/EC) 30 mg PO DAILY fluticasone propion-salmeterol [Wixela Inhub] 500-50 mcg/dose blister with device 1 inh INHALATION BID montelukast 10 mg tablet 10 mg PO DAILY prasugrel HCl 10 mg tablet 10 mg PO DAILY Zyrtec 10 mg Capsule 10 mg PO PRN Zepbound 5 mg/0.5 mL pen injector 5 mg SUBCUT WEEKLY isosorbide mononitrate 60 mg tablet extended release 24 hr 60 mg PO DAILY aspirin 81 mg Tablet,Chewable 81 mg PO DAILY lisinopril 40 mg tablet 40 mg PO DAILY rosuvastatin 40 mg tablet 40 mg PO HS diltiazem HCl 240 mg Capsule,Ext.Rel 24h Degradable 240 mg PO DAILY Qty: 30 0RF <LANDON Lerner Last Filed: 05/21/25 09:21> Follow-up/Referrals: Weinacht,LJ Burr [Primary Care Provider] - <LANDON Lerner Last Filed: 05/21/25 09:21> Quality HEART score for chest pain patients History: highly suspicioius <Chrissy Rl Miles III, DO - Last Filed: 05/20/25 21:40> ECG: non specific repolarization disturbance/LBTB/PM <Chrissy Rl Miles III, DO - Last Filed: 05/20/25 21:40> Age: > 45 and < 65 years <Chrissy Rl Miles III, DO - Last Filed: 05/20/25 21:40> Risk factors: > or = to 3 risk factors of atherosclerotic disease <Chrissy Rl Miles III, DO - Last Filed: 05/20/25 21:40> Troponin: > 1 and < 3x normal limit <Chrissy Rl Miles III, DO - Last Filed: 05/20/25 21:40> Heart score: 7 <Irma Redmond PA-C - Last Filed: 05/21/25 09:21> 7 <Chrissy Rl Miles III, DO - Last Filed: 05/20/25 21:40>
[2025-05-20 12:34] LABS: Hematocrit 44.6 % (42.0-52.0); Hemoglobin 15.7 g/dL (14.0-18.0); Immature Granulocyte Percent A 0.9 % (0-0.5); Lymphocytes Absolute Auto 2.87 K/mm3 (0.9-3.2); Mean Corpuscular HGB Conc 35.2 g/dl (32-36); Mean Corpuscular Hemoglobin 32.4 pg (26-34); Mean Corpuscular Volume 92.1 fl (80-100); Nucleated Red Blood Cells Absolute Auto 0.000 K/mm3 (0.0-0.012); Nucleated Red Blood Cells Perc 0.0 % (0.0-0.2); Platelet Count Result 262 k/mm3 (150-375); Red Blood Count 4.84 M/mm3 (4.6-6.20); White Blood Count 9.8 K/mm3 (4.5-10.0)
[2025-05-20 12:42] LABS: Alanine Aminotransferase 25 U/L (6-50); Albumin Level 4.2 g/dL (3.5-5.1); Alkaline Phosphatase 57 U/L (38-126); Anion Gap 7 mmol/L (4-12); Aspartate Amino Transferase 30 U/L (17-59); Bilirubin,Total 0.7 mg/dL (0.2-1.3); Blood Urea Nitrogen 14 mg/dL (9-20); Calcium 9.2 mg/dL (8.4-10.2); Carbon Dioxide 29 mmol/L (22-30); Chloride 102 mmol/L (98-107); Estimated CRCL calculation 110 ml/min; Estimated Glomerular Filt Rate > 60; Glucose 87 mg/dL (65-110); Lipase 101 U/L (23-300); Potassium 4.0 mmol/L (3.4-5.0); Sodium 138 mmol/L (137-145); Total Protein 7.2 g/dL (6.3-8.2)
[2025-05-20 12:49] LABS: INR 1.1; Prothrombin Time 14.1 Seconds (11.1-14.7)
[2025-05-20 12:50] LABS: Partial Thromboplastin Time 26.0 Seconds (22.3-36.8)
[2025-05-20 12:56] LABS: Troponin I 0.053 ng/mL (0.000-0.034)
[2025-05-20] MEDS: ASPIRIN 81 MG CHEWABLE TABLET 324 MG PO (13:18)
[2025-05-20] MEDS: ACETAMINOPHEN 500 MG TABLET 1000 MG PO (13:49)
[2025-05-20] MEDS: NITROGLYCERIN OINTMENT 1 INCH DOSE TRANSDERM (13:49)
--- OUTSIDE RECORDS SUMMARY | 2025-05-20 14:10 | XMS_ITS | Encounter Summary ---
Author Organization [facility] Address [address] [place] [address] Care Team Providers Care Dental Equipment Mechanic Name Role Phone Betty Soriano NP Primary Care Provider [phone] Encounter Details Date Type Department Care Team (Late st Contact Info) Description 11/28/2022 [facility] Message Enc [facility] Family Medicine [facility] [address] [facility] [address] [place] [address] [phone] Betty Soriano, MANAGER ELECTRICAL [address] [place], [place] [phone] Covid Social History Tobacco Use Types Packs/Day Years Used Date Smoking Tobacco: Never Smokeless Tobacco: Never Comments:not a smoker Alcohol Use Standard Drinks/Week Comments Yes 0 (1 standard drink = 0.6 oz pur e alcohol) PHQ-2 Answer Date Recorded PHQ-2 Score - If the patient scores above 3, please move on to questions 3-9 0 06/15/2022 Sex and Gender Information Value Date Recorded Sex Assigned at Male 04/29/2025 11:11 AM CDT Legal Sex Male 11:19 PM CDT Gender Identity Male 11/11/2021 1:16 PM BEHAVIOR SUPPORT SPECIALIST Sexual Orientation Straight 11/11/2021 1: 16 PM BEHAVIOR SUPPORT SPECIALIST documented as of this encounter Plan of Treatment Upcoming Encounters Date Type Department Care Team (Latest Contact Info) Description 06/14/2025 10:40 AM CDT [facility] [address] [facility] [address] [place] [address] Mery Winters NP [address] [facility] [address] [place] [address] 12/12/2025 12:26 PM BEHAVIOR SUPPORT SPECIALIST Hospital Encounter [facility] [place] [address] Bogdan Cardoza MD 3 [facility] Jorge Luis [address] [place] [address] 12/12/2025 12:26 PM BEHAVIOR SUPPORT SPECIALIST - 12/12/2025 12:56 PM BEHAVIOR SUPPORT SPECIALIST Surgery [facility] [address] Bogdan Cardoza MD 3 [facility] [address] Luis [address] [place] [id number] COLONOSCOPY SCREENING Scheduled Procedures Name Priority Associated Diagnoses Date/Ti me COLONOSCOPY SCREENING Screening for colon cancer 12/12/2025 12:26 PM BEHAVIOR SUPPORT SPECIALIST documented as of this encounter Visit Diagnoses Not on filedocumented in this encounter Additional Health Concerns Infection Onset Date Last Indicated Resolved Time COVID-19 Rule Out 02/28/2023 02/28/2023 02/28/2023 9:06 AM CDT COVID-19 Rule Out 02/28/2023 02/28/2023 03/01/2023 3:49 PM CDT COVID-19 Rule Out 01/24/2024 01/24/2024 01/24/2024 1:58 PM CDT COVID-19 Rule Out 01/31/2024 01/31/2024 02/01/2024 7:59 AM CDT COVID-19 Rule Out 10/09/2024 10/09/2024 10/09/2024 9:41 AM BEHAVIOR SUPPORT SPECIALIST COVID-19 Confirmed 10/09/2024 10/09/2024 12:33 AM BEHAVIOR SUPPORT SPECIALIST COVID-19 Rule Out 11/23/2024 11/23/2024 11/23/2024 10:33 AM BEHAVIOR SUPPORT SPECIALIST Respiratory Rule Out 04/29/2025 04/29/2025 025 11:40 AM CDT Assessment Noted Time PHQ-9 Depression Total Score: 1 01/28/20 9:43 AM CDT documented as of this encounter Care Teams Dental Equipment Mechanic Relationship Specialty Start Date End Date Betty Soriano NP [address] [place] [address] PCP - General NURSE PRACTITIONER 01/22/21 documented as of this encounter
--- OUTSIDE RECORDS SUMMARY | 2025-05-20 14:10 | XMS_ITS | Encounter Summary ---
Author Organization [facility] Address [address] [place] [address] Care Team Providers Care Buncher Machine Name Role Phone Betty Soriano NP Primary Care Provider +1 [phone] Encounter Details Date Type Department Care Team (Late st Contact Info) Description 05/12/2022 FitnessManager Message Enc [facility] Family Medicine - [place] [address] [facility] [address] [place] [address] [phone] Betty Soriano, ADAN [address] [place] [address] Spinal MRI Social History Tobacco Use Types Packs/Day Years Used Date Smoking Tobacco: Never Smokeless Tobacco: Never Alcohol Use Standard Drinks/Week Comments Yes 0 (1 standard drink = 0.6 oz pur e alcohol) PHQ-2 Answer Date Recorded PHQ-2 Score - If the patient scores above 3, please move on to questions 3-9 0 01/27/2021 Sex and Gender Information Value Date Recorded Sex Assigned at Male 04/29/2025 11:11 AM CDT Legal Sex Male 11:19 PM CDT Gender Identity Male 11/11/2021 1:16 PM LOAN OPERATIONS SPECIALIST Sexual Orientation Straight 11/11/2021 1: 16 PM LOAN OPERATIONS SPECIALIST COVID-19 Exposure Response Date Recorded In the last 10 days, have yo u been in contact with someone who was confirmed or suspected to have Coronavirus/COVID-19? No / Unsure 04/19/2022 9:35 AM CDT documented as of this encounter Plan of Treatment Upcoming Encounters Date Type Department Care Team (Latest Contact Info) Description 06/14/2025 10:40 AM CDT Office [facility] [address] [place] [address] Mery Winters NP 3 [facility] [address] [place] [address] 12/12/2025 12:26 PM LOAN OPERATIONS SPECIALIST Hospital Encounter [facility] [place] [address] Bogdan Cardoza MD 3 [facility] Jorge Luis [address] [place] [address] 12/12/2025 12:26 PM LOAN OPERATIONS SPECIALIST - 12/12/2025 12:56 PM LOAN OPERATIONS SPECIALIST Surgery [facility] [address] Bogdan Cardoza MD [address] [address] COLONOSCOPY SCREENING Scheduled Procedures Name Priority Associated Diagnoses Date/Ti me COLONOSCOPY SCREENING Screening for colon cancer 12/12/2025 12:26 PM LOAN OPERATIONS SPECIALIST documented as of this encounter Visit [...] Rule Out 10/09/2024 10/09/2024 10/09/2024 9:41 AM LOAN OPERATIONS SPECIALIST COVID-19 Confirmed 10/09/2024 10/09/2024 12:33 AM LOAN OPERATIONS SPECIALIST COVID-19 Rule Out 11/23/2024 11/23/2024 11/23/2024 10:33 AM LOAN OPERATIONS SPECIALIST Respiratory Rule Out 04/29/2025 04/29/2025 025 11:40 AM CDT Assessment Noted Time PHQ-9 Depression Total Score: 1 01/28/20 9:43 AM CDT documented as of this encounter Care Teams Buncher Machine Relationship Specialty Start Date End Date Betty Soriano NP [address] [place] [address] PCP - General NURSE PRACTITIONER 01/22/21 documented as of this encounter
--- OUTSIDE RECORDS SUMMARY | 2025-05-20 14:10 | XMS_ITS | Encounter Summary ---
Author Organization [facility] Address [facility] [place] [address] Care Team Providers Care Pharmacy Clinical Coordinator Name Role Phone Betty Soriano NP Primary Care Provider +1 [phone] Encounter Details Date Type Department Care Team (Late st Contact Info) Description 05/11/2023 MyChart Message Enc [facility] Medical [facility] [address] [place], [place] [phone] Live[employer] Networkshart, [facility] Provider Air Quality Message Social History Tobacco Use Types Packs/Day Years Used Date Smoking Tobacco: Never Passive Smoke Exposure: Past Smokeless Tobacco: Never Comments:not a smoker Alcohol Use Standard Drinks/Week Comments Yes 0 (1 standard drink = 0.6 oz pur e alcohol) PHQ-2 Answer Date Recorded Patient Health Questionnaire-2 Score 0 04/27/2023 Sex and Gender Information Value Date Recorded Sex Assigned at Male 04/29/2025 11:11 AM CDT Legal Sex Male 11:19 PM CDT Gender Identity Male 11/11/2021 1:16 PM INSTRUMENT TECHNOLOGIST Sexual Orientation Straight 11/11/2021 1: 16 PM INSTRUMENT TECHNOLOGIST COVID-19 Exposure Response Date Recorded In the last 10 days, have yo u been in contact with someone who was confirmed or suspected to have Coronavirus/COVID-19? No / Unsure 04/27/2023 9:16 AM CDT documented as of this encounter Plan of Treatment Upcoming Encounters Date Type Department Care Team (Latest Contact Info) Description 06/14/2025 10:40 AM CDT Office Visit [facility] [address] [place] [address] Mery Winters NP 3 [facility] [address] [place] [address] 12/12/2025 12:26 PM INSTRUMENT TECHNOLOGIST Hospital Encounter [facility] [address] Bogdan Cardoza MD 3 [facility] Jorge Luis [address] [place] [address] 12/12/2025 12:26 PM INSTRUMENT TECHNOLOGIST - 12/12/2025 12:56 PM INSTRUMENT TECHNOLOGIST Surgery [facility] [address] Bogdan Cardoza MD 3 [facility] Jorge Luis [address] [place] [address] COLONOSCOPY SCREENING Scheduled Procedures Name Priority Associated Diagnoses Date/Ti me COLONOSCOPY SCREENING Screening for colon cancer 12/12/2025 12:26 PM INSTRUMENT TECHNOLOGIST documented as of this encounter Visit Diagnoses Not on filedocumented in this encounter Additional Health Concerns Infection Onset Date Last Indicated Resolved Time COVID-19 Rule Out 01/24/2024 01/24/2024 01/24/2024 1:58 PM CDT COVID-19 Rule Out 01/31/2024 01/31/2024 02/01/2024 7:59 AM CDT COVID-19 Rule Out 10/09/2024 10/09/2024 10/09/2024 9:41 AM INSTRUMENT TECHNOLOGIST COVID-19 Confirmed 10/09/2024 10/09/2024 12:33 AM INSTRUMENT TECHNOLOGIST COVID-19 Rule Out 11/23/2024 11/23/2024 11/23/2024 10:33 AM INSTRUMENT TECHNOLOGIST Respiratory Rule Out 04/29/2025 04/29/2025 025 11:40 AM CDT Assessment Noted Time PHQ-9 Depression Total Score: 1 01/28/20 21 9:43 AM CDT documented as of this encounter Care Teams Pharmacy Clinical Coordinator Relationship Specialty Start Date End Date Betty Soriano NP [address] [place] [address] PCP - General NURSE PRACTITIONER 01/22/21 documented as of this encounter
--- OUTSIDE RECORDS SUMMARY | 2025-05-20 14:10 | XMS_ITS | Encounter Summary ---
Author Organization [facility] Address [address] [place] [address] Care Team Providers Care Toddler Nanny Name Role Phone Betty Soriano NP Primary Care Provider +1 [phone] Encounter Details Date Type Department Care Team (Late st Contact Info) Description 11/28/2022 LeCabt Message Enc [facility] Medical Group Mult[facility]pecialty Care - [facility] 3 [facility], [address] [place] [phone] Monique Henry NP 3 [facility]. [address] [place] [address] Covid Social History Tobacco Use Types Packs/Day [...] CDT Gender Identity Male 11/11/2021 1:16 PM OCCUPATIONAL ANALYST Sexual Orientation Straight 11/11/2021 1: 16 PM OCCUPATIONAL ANALYST documented as of this encounter Plan of Treatment Upcoming Encounters Date Type Department Care Team (Latest Contact Info) Description 06/14/2025 10:40 AM CDT Office Visit [facility] Medical [facility] Mult[facility]pecialty Care - [facility] [address] [place] [address] Mery Winters NP 3 [facility] [address] [place] [address] 12/12/2025 12:26 PM OCCUPATIONAL ANALYST Hospital Encounter [facility] [place] [place] [address] Bogdan Cardoza MD 3 [facility] Jorge Luis [address] [place] [address] 12/12/2025 12:26 PM OCCUPATIONAL ANALYST - 12/12/2025 12:56 PM OCCUPATIONAL ANALYST Surgery [facility] [place] [address] Bogdan Cardoza MD [address] [address] COLONOSCOPY SCREENING Scheduled Procedures Name Priority Associated Diagnoses Date/Ti me COLONOSCOPY SCREENING Screening for colon cancer 12/12/2025 12:26 PM OCCUPATIONAL ANALYST documented as of this encounter Visit Diagnoses [...] Rule Out 10/09/2024 10/09/2024 10/09/2024 9:41 AM OCCUPATIONAL ANALYST COVID-19 Confirmed 10/09/2024 10/09/2024 12:33 AM OCCUPATIONAL ANALYST COVID-19 Rule Out 11/23/2024 11/23/2024 11/23/2024 10:33 AM OCCUPATIONAL ANALYST Respiratory Rule Out 04/29/2025 04/29/2025 025 11:40 AM CDT Assessment Noted Time PHQ-9 Depression Total Score: 1 01/28/20 9:43 AM CDT documented as of this encounter Care Teams Toddler Nanny Relationship Specialty Start Date End Date Betty Soriano NP [address] [place] [address] PCP - General NURSE PRACTITIONER 01/22/21 documented as of this encounter
--- OUTSIDE RECORDS SUMMARY | 2025-05-20 14:10 | XMS_ITS | Encounter Summary ---
Author Organization [facility] Address [address] [place] [address] Care Team Providers Care Sales Representatives Name Role Phone Betty Soriano NP Primary Care Provider +1 [phone] Encounter Details Date Type Department Care Team (Late st Contact Info) Description 10/20/2022 Flatpebble Message Enc [facility] Medical Group Family Medicine - [place] [address] [facility] [address] [place] [address] [phone] Betty Soriano, ADAN [address] [place] [address] [place] [address] GI Imaging Social History Tobacco Use Types Packs/Day Years [...] CDT Gender Identity Male 11/11/2021 1:16 PM FIELD SERVICE CONSULTANT Sexual Orientation Straight 11/11/2021 1: 16 PM FIELD SERVICE CONSULTANT COVID-19 Exposure Response Date Recorded In the last 10 days, have yo u been in contact with someone who was confirmed or suspected to have Coronavirus/COVID-19? No / Unsure 10/18/2022 2:57 PM FIELD SERVICE CONSULTANT documented as of this encounter Plan of Treatment Upcoming Encounters Date Type Department Care Team (Latest Contact Info) Description 06/14/2025 10:40 AM CDT Office Visit [facility] Medical Group Multispecialty Care - [facility] [address], [address] [place] [address] Mery Winters NP 3 [facility] [address] [place] [address] 12/12/2025 12:26 PM FIELD SERVICE CONSULTANT Hospital Encounter [facility] [place] [address] Bogdan Cardoza MD 3 [facility] Jorge Luis [address] [place] [address] 12/12/2025 12:26 PM FIELD SERVICE CONSULTANT - 12/12/2025 12:56 PM FIELD SERVICE CONSULTANT Surgery [facility] [place] [address] Bogdan Cardoza MD [address] [address] COLONOSCOPY SCREENING Scheduled Procedures Name Priority Associated Diagnoses Date/Ti me COLONOSCOPY SCREENING Screening for colon cancer 12/12/2025 12:26 PM FIELD SERVICE CONSULTANT documented as of this encounter Visit Diagnoses [...] Rule Out 10/09/2024 10/09/2024 10/09/2024 9:41 AM FIELD SERVICE CONSULTANT COVID-19 Confirmed 10/09/2024 10/09/2024 12:33 AM FIELD SERVICE CONSULTANT COVID-19 Rule Out 11/23/2024 11/23/2024 11/23/2024 10:33 AM FIELD SERVICE CONSULTANT Respiratory Rule Out 04/29/2025 04/29/2025 025 11:40 AM CDT Assessment Noted Time PHQ-9 Depression Total Score: 1 01/28/20 9:43 AM CDT documented as of this encounter Care Teams Sales Representatives Relationship Specialty Start Date End Date Betty Soriano NP [address] [place] [address] PCP - General NURSE PRACTITIONER 01/22/21 documented as of this encounter
--- OUTSIDE RECORDS SUMMARY | 2025-05-20 14:10 | XMS_ITS | Encounter Summary ---
Author Organization [facility] Address [address] [place] [address] Care Team Providers Care Pulpwood Buyer Name Role Phone Betty Soriano NP Primary Care Provider +1 [phone] Encounter Details Date Type Department Care Team (Late st Contact Info) Description 12/09/2022 Novaled Message Enc [facility] Medical [facility] [address] [address] Mychart, [facility] Provider Labs Social History Tobacco Use Types Packs/Day Years [...] CDT Gender Identity Male 11/11/2021 1:16 PM ZOO DIRECTOR Sexual Orientation Straight 11/11/2021 1: 16 PM ZOO DIRECTOR COVID-19 Exposure Response Date Recorded In the last 10 days, have yo u been in contact with someone who was confirmed or suspected to have Coronavirus/COVID-19? No / Unsure 12/03/2022 10:17 AM ZOO DIRECTOR documented as of this encounter Plan of Treatment Upcoming Encounters Date Type Department Care Team (Latest Contact Info) Description 06/14/2025 10:40 AM CDT Office Visit [facility] Medical Group Multispecialty Care - [place] 3 [facility] [address] [place] [address] Mery Winters NP 3 [facility] [address] [place] [address] 12/12/2025 12:26 PM ZOO DIRECTOR Hospital Encounter [facility] [place] [address] Bogdan Cardoza MD 3 [facility] Jorge Luis [address] [place] [address] 12/12/2025 12:26 PM ZOO DIRECTOR - 12/12/2025 12:56 PM ZOO DIRECTOR Surgery [facility] [place] [address] Bogdan Cardoza MD 3 [facility] Jorge Luis [address] [place] [address] COLONOSCOPY SCREENING Scheduled Procedures Name Priority Associated Diagnoses Date/Ti me COLONOSCOPY SCREENING Screening for colon cancer 12/12/2025 12:26 PM ZOO DIRECTOR documented as of this encounter Visit Diagnoses Not on filedocumented in this encounter Additional Health Concerns Infection Onset Date Last Indicated Resolved Time COVID-19 Rule Out 02/28/2023 02/28/2023 02/28/2023 9:06 AM CDT COVID-19 Rule Out 02/28/2023 02/28/2023 03/01/2023 3:49 PM CDT COVID-19 Rule Out 01/24/2024 01/24/2024 01/24/2024 1:58 PM CDT COVID-19 Rule Out 01/31/2024 01/31/2024 02/01/2024 7:59 AM CDT COVID-19 Rule Out 10/09/2024 10/09/202410/09/2024 9:41 AM ZOO DIRECTOR COVID-19 Confirmed 10/09/2024 10/09/2024 12:33 AM ZOO DIRECTOR COVID-19 Rule Out 11/23/2024 11/23/2024 11/23/2024 10:33 AM ZOO DIRECTOR Respiratory Rule Out 04/29/2025 04/29/2025 025 11:40 AM CDT Assessment Noted Time PHQ-9 Depression Total Score: 1 01/28/20 9:43 AM CDT documented as of this encounter Care Teams Pulpwood Buyer Relationship Specialty Start Date End Date Betty Soriano NP [address] [place] [address] PCP - General NURSE PRACTITIONER 01/22/21 documented as of this encounter
--- OUTSIDE RECORDS SUMMARY | 2025-05-20 14:10 | XMS_ITS | Encounter Summary ---
Author Organization [facility] Address [address] [place] [address] Care Team Providers Care Electrical Cad Technician Name Role Phone Betty Soriano NP Primary Care Provider [phone] [phone] Encounter Details Date Type Department Care Team (Late st Contact Info) Description 04/02/2022 Naked Wines Message Enc [facility] Family Medicine - [place] 7342 [facility] [address] [place] [phone] Betty Soriano, ADAN [address] [place] [address] [place] [address] Cardiology Medication Social History Tobacco Use Types Packs/Day Years [...] CDT Gender Identity Male 11/11/2021 1:16 PM ENGINEERING GROUP LEADER Sexual Orientation Straight 11/11/2021 1: 16 PM ENGINEERING GROUP LEADER COVID-19 Exposure Response Date Recorded In the last 10 days, have yo u been in contact with someone who was confirmed or suspected to have Coronavirus/COVID-19? No / Unsure 04/02/2022 11:15 AM CDT documented as of this encounter Plan of Treatment Upcoming Encounters Date Type Department Care Team (Latest Contact Info) Description 06/14/2025 10:40 AM CDT Office Visit [facility] [address] [place] [address] Mery Winters NP 3 [facility] [address] [place] [address] 12/12/2025 12:26 PM ENGINEERING GROUP LEADER Hospital Encounter [facility] [place] [address] Bogdan Cardoza MD 3 [facility] Jorge Luis [address] [place] [address] 12/12/2025 12:26 PM ENGINEERING GROUP LEADER - 12/12/2025 12:56 PM ENGINEERING GROUP LEADER Surgery [facility] [address] Bogdan Cardoza MD [address] [address] COLONOSCOPY SCREENING Scheduled Procedures Name Priority Associated Diagnoses Date/Ti me COLONOSCOPY SCREENING Screening for colon cancer 12/12/2025 12:26 PM ENGINEERING GROUP LEADER documented as of this encounter Visit Diagnoses [...] Rule Out 10/09/2024 10/09/2024 10/09/2024 9:41 AM ENGINEERING GROUP LEADER COVID-19 Confirmed 10/09/2024 10/09/2024 12:33 AM ENGINEERING GROUP LEADER COVID-19 Rule Out 11/23/2024 11/23/2024 11/23/2024 10:33 AM ENGINEERING GROUP LEADER Respiratory Rule Out 04/29/2025 04/29/2025 025 11:40 AM CDT Assessment Noted Time PHQ-9 Depression Total Score: 1 01/28/20 9:43 AM CDT documented as of this encounter Care Teams Electrical Cad Technician Relationship Specialty Start Date End Date Betty Soriano NP [address] [place] [address] PCP - General NURSE PRACTITIONER 01/22/21 documented as of this encounter
--- OUTSIDE RECORDS SUMMARY | 2025-05-20 14:10 | XMS_ITS | Encounter Summary ---
Author Organization [facility] Address [address] [place] [address] Care Team Providers Care Unit Director Name Role Phone Betty Soriano NP Primary Care Provider [phone] [phone] Encounter Details Date Type Department Care Team (Late st Contact Info) Description 10/18/2022 Qoiza Message Enc [facility] Medical Group Family Medicine - [place] 7342 [facility] [address] [place] [phone] Betty Soriano, ADAN [address] [place] [address] labs Social History Tobacco Use Types Packs/Day Years [...] CDT Gender Identity Male 11/11/2021 1:16 PM KILNMAN Sexual Orientation Straight 11/11/2021 1: 16 PM KILNMAN COVID-19 Exposure Response Date Recorded In the last 10 days, have yo u been in contact with someone who was confirmed or suspected to have Coronavirus/COVID-19? No / Unsure 10/18/2022 2:57 PM KILNMAN documented as of this encounter Plan of Treatment Upcoming Encounters Date Type Department Care Team (Latest Contact Info) Description 06/14/2025 10:40 AM CDT Office Visit [facility] [address] [place] [phone] Mery Winters NP 3 [facility] [address] [place] [address] 12/12/2025 12:26 PM KILNMAN Hospital Encounter [facility] [place] [address] Bogdan Cardoza MD 3 [facility] Jorge Luis [address] [place] [address] 12/12/2025 12:26 PM KILNMAN - 12/12/2025 12:56 PM KILNMAN Surgery [facility] [place] [address] Bogdan Cardoza MD [address] [address] COLONOSCOPY SCREENING Scheduled Procedures Name Priority Associated Diagnoses Date/Ti me COLONOSCOPY SCREENING Screening for colon cancer 12/12/2025 12:26 PM KILNMAN documented as of this encounter Visit Diagnoses [...] Rule Out 10/09/2024 10/09/2024 10/09/2024 9:41 AM KILNMAN COVID-19 Confirmed 10/09/2024 10/09/2024 12:33 AM KILNMAN COVID-19 Rule Out 11/23/2024 11/23/2024 11/23/2024 10:33 AM KILNMAN Respiratory Rule Out 04/29/2025 04/29/2025 025 11:40 AM CDT Assessment Noted Time PHQ-9 Depression Total Score: 1 01/28/20 9:43 AM CDT documented as of this encounter Care Teams Unit Director Relationship Specialty Start Date End Date Betty Soriano NP [address] [place] [address] PCP - General NURSE PRACTITIONER 01/22/21 documented as of this encounter
--- OUTSIDE RECORDS SUMMARY | 2025-05-20 14:11 | XMS_ITS | Encounter Summary ---
Author Organization [facility] Address [address] [place] [address] Care Team Providers Care Strategic Sourcing Manager Name Role Phone Betty Soriano NP Primary Care Provider [phone] [phone] Reason for Visit * Reason Comments Colonoscopy Report (SCAN) Encounter Details Date Type Department Care Team ( Contact Info) Description 05/15/2025 Scan HEALTH INFO SRVCS Scanned, Doc Med Group Colonoscopy Report (SCAN) Social History Tobacco Use Types Packs/Day Years Used Date Smoking Tobacco: Never Passive Smoke Exposure: Past Smokeless Tobacco: Never Comments:not a smoker Alcohol Use Standard Drinks/Week Comments Not Currently 0 (1 standard drink = 0.6 oz pur e alcohol) social PHQ-2 Answer Date Recorded Patient Health Questionnaire-2 Score 0 05/10/2025 Sex and Gender Information Value Date Recorded Sex Assigned at Male 04/29/2025 11:11 AM CDT Legal Sex Male 11:19 PM CDT Gender Identity Male 11/11/2021 1:16 PM PIPELINE EXECUTIVE Sexual Orientation Straight 11/11/2021 1: 16 PM PIPELINE EXECUTIVE documented as of this encounter Plan of Treatment Upcoming Encounters Date Type Department Care Team (Latest Contact Info) Description 06/14/2025 10:40 AM CDT Office Visit [facility] Medical Group Multispecialty Care - [address], [address] [place] [address] Mery Winters NP 3 [facility] [address] [place] [address] 12/12/2025 12:26 PM PIPELINE EXECUTIVE Hospital Encounter [facility] [place] [address] Bogdan Cardoza MD 3 [facility] Jorge Luis [address] [place] [address] 12/12/2025 12:26 PM PIPELINE EXECUTIVE - 12/12/2025 12:56 PM PIPELINE EXECUTIVE Surgery [place] [facility] [place] [address] Bogdan Cardoza MD 3 [facility] Jorge Luis [address] [place] [address] COLONOSCOPY SCREENING Scheduled Procedures Name Priority Associated Diagnoses Date/Ti me COLONOSCOPY SCREENING Screening for colon cancer 12/12/2025 12:26 PM PIPELINE EXECUTIVE documented as of this encounter Goals Goal Patient Goal Type Associated Problems Recent Progress Patient-Stated? Author Autogenerat ed Goal Care Plan Autogenerated Problem No PaddykervinApurva documented as of this encounter Procedures Procedure Name Priority Date/Time Associated Diagnosis Comments COLONOSCOPY GENERIC (SCAN ORDER) 05/15/2025 documented in this encounter Results * COLONOSCOPY GENERIC (SCAN ORDER) (05/15/2025) 05/15/2025 us Doc Med Group Scanned SCANNING Final Resu lt documented in this encounter Visit Diagnoses Not on filedocumented in this encounter Additional Health Concerns Active Problems Noted Date Diagnosed Date Autogenerated Problem 05/13/2025 Assessment Noted Time PHQ-9 Depression Total Score: 1 01/28/20 21 9:43 AM CDT documented as of this encounter Care Teams Strategic Sourcing Manager Relationship Specialty Start Date End Date Betty Soriano NP [address] [place] [address] PCP - General NURSE PRACTITIONER 01/22/21 documented as of this encounter
--- OUTSIDE RECORDS SUMMARY | 2025-05-20 14:11 | XMS_ITS | Encounter Summary ---
Author Organization [facility] Address [address] [place] [address] Care Team Providers Care Plastic Press Operator Name Role Phone Betty Soriano NP Primary Care Provider [phone] Encounter Details Date Type Department Care Team (Late st Contact Info) Description 05/10/2024 Krugle Message Enc [facility] Medical Group Family Medicine [facility] [address] [facility] [address] [place] [address] [phone] Betty Soriano, ADAN [address] [place] [address] follow up Social History Tobacco Use Types Packs/Day Years Used Date Smoking Tobacco: Never Passive Smoke Exposure: Past Smokeless Tobacco: Never Comments:not a smoker Alcohol Use Standard Drinks/Week Comments Yes 0 (1 standard drink = 0.6 oz pur e alcohol) social PHQ-2 Answer Date Recorded Patient Health Questionnaire-2 Score 0 11/23/2023 Sex and Gender Information Value Date Recorded Sex Assigned at Male 04/29/2025 11:11 AM CDT Legal Sex Male 11:19 PM CDT Gender Identity Male 11/11/2021 1:16 PM COMFORT FILLER Sexual Orientation Straight 11/11/2021 1: 16 PM COMFORT FILLER documented as of this encounter Functional Status * Calculated C-SSRS Risk Score (Lifetime/Recent) Answer Date of Assessment Author Status No Risk Indicated 05/11/2024 10:58 AM CDT Dirk Henriquez RN Active * Mildred Suicide Severity Rating Scale (Screener/Recent Self-Report) Question Answer Date of Assessment Author Status 1. Wish to be (Past 1 Month) No 05/11/2024 10:58 AM CDT Cyndie Henriquez RN Ac tive 2. Non-Specific Active Suicidal Thoughts (Past 1 Month) No 05/11/2024 10:58 AM CDT Cyndie Henriquez RN Ac tive 6. Suicidal Behavior (Lifetime) No 05/11/2024 10:58 AM CDT Cyndie Henriquez RN Ac tive documented as of this encounter Plan of Treatment Upcoming Encounters Date Type Department Care Team (Latest Contact Info) Description 06/14/2025 10:40 AM CDT Office Visit [facility] Medical Group Multispecialty Care - [facility] 3 [facility], [address] [place] [address] Mery Winters NP 3 [facility] [address] [place] [address] 12/12/2025 12:26 PM COMFORT FILLER Hospital Encounter [facility] [place] [address] Bogdan Cardoza MD 3 [facility] Jorge Luis [address] [place] [address] 12/12/2025 12:26 PM COMFORT FILLER - 12/12/2025 12:56 PM COMFORT FILLER Surgery [facility] [place] [address] Bogdan Cardoza MD [address] [address] COLONOSCOPY SCREENING Scheduled Procedures Name Priority Associated Diagnoses Date/Ti me COLONOSCOPY SCREENING Screening for colon cancer 12/12/2025 12:26 PM COMFORT FILLER documented as of this encounter Visit Diagnoses Not on filedocumented in this encounter Additional Health Concerns Infection Onset Date Last Indicated Resolved Time COVID-19 Rule Out 10/09/2024 10/09/2024 10/09/2024 9:41 AM COMFORT FILLER COVID-19 Confirmed 10/09/2024 10/09/2024 12:33 AM COMFORT FILLER COVID-19 Rule Out 11/23/2024 11/23/2024 11/23/2024 10:33 AM COMFORT FILLER Respiratory Rule Out 04/29/2025 04/29/2025 025 11:40 AM CDT Assessment Noted Time PHQ-9 Depression Total Score: 1 01/28/20 21 9:43 AM CDT documented as of this encounter Care Teams Plastic Press Operator Relationship Specialty Start Date End Date Betty Soriano NP [address] [place] [address] PCP - General NURSE PRACTITIONER 01/22/21 documented as of this encounter
--- OUTSIDE RECORDS SUMMARY | 2025-05-20 14:11 | XMS_ITS | Encounter Summary ---
Author Organization [facility] Medical Group Address [address] [address] Care Team Providers Care Entry Level Account Manager Name Role Phone Bowen Juarez MD Primary Care Provider [phone] Bowen Juarez MD Primary Care Provider [phone] Bowen Juarez MD Primary Care Provider [phone] Unknown, Notinfile Primary Care Provider Unavail able No, Physician Primary Care Provider [phone] Maggie Fields MD Primary Care Provider [phone] Referral, Self Unavailable Unavailable Betty Soriano MD Primary Care Provider [phone] Encounter Details Date Type Department Care Team (Late st Contact Info) Description 06/15/2016 Orders Only [facility] ProviderJessenia MD [address] [place] [address] Social History Tobacco Use Types Packs/Day Years Used Date Smoking Tobacco: Never Alcohol Use Standard Drinks/Week Comments Yes 0 (1 standard drink = 0.6 oz pur e alcohol) Sex and Gender Information Value Date Recorded Sex Assigned at Not on file Legal Sex Male 7:37 AM MYSQL DATABASE ADMINISTRATOR Gender Identity Male 03/23/2020 7:25 PM CDT [...] on filedocumented in this encounter Care Teams Entry Level Account Manager Relationship Specialty Start Date End Date Bowen Juarez MD [address] [address] PCP - General 02/11/17 05/24/19 Bowen Juarez MD [address] [address] PCP - General 09/30/16 02/10/17 Bowen Juarez MD [address] [address] PCP - General 12/16/15 09/29/16 Unknown, Notinfile PCP - General 05/25/19 09/06/19 No, Physician PCP - General 09/07/19 01/10/20 Maggie Fields MD PCP - General Family Medicine 01/11/20 11/26/21 Betty Soriano MD PCP - General Nurse Practitioner 11/27/21 Referral, Self Referring Physician Otolaryngology 05/14/20 documented as of this encounter
--- OUTSIDE RECORDS SUMMARY | 2025-05-20 14:11 | XMS_ITS | Referral Summary ---
Author Organization [facility] Address [address] [place] [address] Care Team Providers Care Mri Manager Name Role Phone Referral, Self Unavailable Unavailable Betty Soriano MD Primary Care Provider [phone] Encounters Date Type Department Care Team Description 04/22/2025 1:00 PM CDT Office Visit [facility] Sports Medicine and Primary Care at [address] [place] [address] Bowen Moreno DO Biceps tendinitis on left (Primary Dx) 04/05/2025 Results Follow-Up [facility] Convenient Care at [address] [address] Daniel Dunbar NP XR Elbow Left 3+ Vw 04/05/2025 8:40 AM CDT Ancillary Procedure [facility] Imaging at [address] [address] Left elbow pain 04/05/2025 8:35 AM CDT Ancillary Procedure [facility] Imaging at [address] [id number] Left elbow pain 04/05/2025 8:45 AM CDT Office Visit [facility] Convenient Care at [address] [address] Daniel Dunbar NP Left elbow [...] 40.0-44.9, adult Coronary artery disease invo lving [place] coronary artery of [place] heart without angina pectoris 12/29/2015 Overview (02/18/2017): Coronary artery disease involving [place] coronary artery of [place] heart with other form of angina pectoris [...] on file Legal Sex Male 7:37 AM AGRICULTURAL RESEARCH DIRECTOR Gender Identity Male 03/23/2020 7:25 PM CDT [...] by Isidro [place] M.D. T: Report ID: [id number] Reading Location: [id number] Procedure Note Isidro [place] MD - 04/05/2025 [...] by Isidro [place] M.D. T: Report ID: [id number] Reading Location: [id number] Daniel Dunbar JEWEL HOLE CORNERER IMG XR PROCEDURES Final Result * XR [...] by Isidro [place] M.D. T: Report ID: [id number] Reading Location: [id number] Procedure Note Isidro [place] MD - 04/05/2025 [...] by Isidro [place] M.D. T: Report ID: [id number] Reading Location: [place] [address] Daniel Dunbar NP IMG XR PROCEDURES Final Result from Last 3 Months [facility] [place] [address] [facility] CHOICE PLUS Care Teams Mri Manager Relationship Specialty Start Date End Date Betty Soriano MD PCP - General Nurse Practitioner 11/27/21 Referral, Self Referring Physician Otolaryngology 05/14/20
--- OUTSIDE RECORDS SUMMARY | 2025-05-20 14:11 | XMS_ITS | Clinical Summary ---
Author Organization [facility] Address [address] [place] [address] Care Team Providers Care Chauffeur Motorbus Name Role Phone Referral, Self Unavailable Unavailable Betty Soriano MD Primary Care Provider [phone]- [phone] Allergies Active Allergy Reactions Criticality Noted Date [...] 40.0-44.9, adult Coronary artery disease invo lving [place] coronary artery of [place] heart without angina pectoris 12/29/2015 Overview (02/18/2017): Coronary artery disease involving [place] coronary artery of [place] heart with other form of angina pectoris [...] Description 04/22/2025 1:00 PM CDT Office Visit [facility] Sports Medicine and Primary Care at [address] [place] [address] Bowen Moreno DO Biceps tendinitis on left (Primary Dx) 04/05/2025 8:45 AM CDT Office Visit [facility] Convenient Care at [address] [place] [address] [address] Daniel Dunbar NP Left elbow pain (Primary Dx); Left forearm pain 04/05/2025 8:40 AM CDT Ancillary Procedure [facility] Group Imaging at [address] [place] [address] [address] Left elbow pain 04/05/2025 8:35 AM CDT Ancillary Procedure [facility] Medical [facility] Imaging at [address] [place] [address] [address] Left elbow pain 04/05/2025 Results Follow-Up 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 T: Report ID: [id number] Reading Location: [id number] Procedure Note Isidro [place] MD - 04/05/2025 [...] by Isidro [place] M.D. T: Report ID: [id number] Reading Location: [id number] Daniel Dunbar NP IM XR PROCEDURES Final [...] by Isidro Hale M.D. T: Report ID: [id number] Reading Location: [id number] Procedure Note Isidro [place] MD - 04/05/2025 [...] by Isidro Hale M.D. T: Report ID: [id number] Reading Location: [id number] Daniel Dunbar NP IMG XR PROCEDURES Final Result from Last 3 Months Insurance [facility] HMO [id number] [place] [address] [facility] CHOICE PLUS [facility] H[facility]/PPO Address: [place] [address] Care Teams Chauffeur Motorbus Relationship Specialty Start Date End Date Betty Soriano MD PCP - General Nurse Practitioner 11/27/21 Referral, Self Referring Physician Otolaryngology 05/14/20
--- OUTSIDE RECORDS SUMMARY | 2025-05-20 14:11 | XMS_ITS | Encounter Summary ---
Author Organization [facility] Address [address] [place] [address] Care Team Providers Care Cutting Table Operator First Name Role Phone Betty Soriano NP Primary Care Provider [phone] Encounter Details Date Type Department Care Team (Late st Contact Info) Description 10/31/2024 TRIRIGA Message Enc [facility] Family [facility] [address] [facility] [address] [place] [phone] Betty Soriano, MEDICAL REGISTRAR [address] [place], [place] [id number] MRI Social History Tobacco Use Types Packs/Day Years Used Date Smoking Tobacco: Never Passive Smoke Exposure: Past Smokeless Tobacco: Never Comments:not a smoker Alcohol Use Standard Drinks/Week Comments Not Currently 0 (1 standard drink = 0.6 oz pur e alcohol) social PHQ-2 Answer Date Recorded Patient Health Questionnaire-2 Score 0 10/09/2024 Sex and Gender Information Value Date Recorded Sex Assigned at Male 04/29/2025 11:11 AM CDT Legal Sex Male 11:19 PM CDT Gender Identity Male 11/11/2021 1:16 PM FUNERAL CAR CHAUFFEUR Sexual Orientation Straight 11/11/2021 1: 16 PM FUNERAL CAR CHAUFFEUR documented as of this encounter Plan of Treatment Upcoming Encounters Date Type Department Care Team (Latest Contact Info) Description 06/14/2025 10:40 AM CDT Office Visit [facility] Multispecialty Care - [address], [address] [place] [address] Mery Winters NP 3 [facility] [address] [place] [address] 12/12/2025 12:26 PM FUNERAL CAR CHAUFFEUR Hospital Encounter [facility] [place] [address] Bogdan Cardoza MD 3 [facility] Jorge Luis [address] [place] [address] 12/12/2025 12:26 PM FUNERAL CAR CHAUFFEUR - 12/12/2025 12:56 PM FUNERAL CAR CHAUFFEUR Surgery [facility] [place] [address] Bogdan Cardoza MD 3 [facility] Jorge Luis [address] [place] [address] COLONOSCOPY SCREENING Scheduled Procedures Name Priority Associated Diagnoses Date/Ti me COLONOSCOPY SCREENING Screening for colon cancer 12/12/2025 12:26 PM FUNERAL CAR CHAUFFEUR documented as of this encounter Visit Diagnoses Not on filedocumented in this encounter Additional Health Concerns Infection Onset Date Last Indicated Resolved Time COVID-19 Confirmed 10/09/2024 10/09/2024 12:33 AM FUNERAL CAR CHAUFFEUR COVID-19 Rule Out 11/23/2024 11/23/2024 11/23/2024 10:33 AM FUNERAL CAR CHAUFFEUR Respiratory Rule Out 04/29/2025 04/29/2025 025 11:40 AM CDT Assessment Noted Time PHQ-9 Depression Total Score: 1 01/28/20 21 9:43 AM CDT documented as of this encounter Care Teams Cutting Table Operator First Relationship Specialty Start Date End Date Betty Soriano NP [address] [place] [address] PCP - General NURSE PRACTITIONER 01/22/21 documented as of this encounter
--- OUTSIDE RECORDS SUMMARY | 2025-05-20 14:11 | XMS_ITS | Encounter Summary ---
Author Organization [facility] Medical Group Address [address] [address] Care Team Providers Care Dirt Bike Mechanic Name Role Phone Bowen Juarez MD Primary Care Provider [phone] Bowen Juarez MD Primary Care Provider [phone] Bowen Juarez MD Primary Care Provider [phone] Unknown, Notinfile Primary Care Provider Unavail able No, Physician Primary Care Provider [phone] Maggie Fields MD Primary Care Provider [phone] Referral, Self Unavailable Unavailable Betty Soriano MD Primary Care Provider [phone] Encounter Details Date Type Department Care Team (Late st Contact Info) Description 06/16/2016 Orders Only [facility] ProviderJessenia MD [address] [place] [address] Social History Tobacco Use Types Packs/Day Years Used Date Smoking Tobacco: Never Alcohol Use Standard Drinks/Week Comments Yes 0 (1 standard drink = 0.6 oz pur e alcohol) Sex and Gender Information Value Date Recorded Sex Assigned at Not on file 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 Gender Identity Male 03/23/2020 7:25 PM CDT [...] on filedocumented in this encounter Care Teams Dirt Bike Mechanic Relationship Specialty Start Date End Date Bowen Juarez MD [address] [address] PCP - General 02/11/17 05/24/19 Bowen Juarez MD [address] [address] PCP - General 09/30/16 02/10/17 Bowen Juarez MD [address] [address] PCP - General 12/16/15 09/29/16 Unknown, Notinfile PCP - General 05/25/19 09/06/19 No, Physician PCP - General 09/07/19 01/10/20 Maggie Fields MD PCP - General Family Medicine 01/11/20 11/26/21 Betty Soriano MD PCP - General Nurse Practitioner 11/27/21 Referral, Self Referring Physician Otolaryngology 05/14/20 documented as of this encounter
--- OUTSIDE RECORDS SUMMARY | 2025-05-20 14:11 | XMS_ITS | Encounter Summary ---
Author Organization [facility] Medical Group Address [address] [address] Care Team Providers Care Deskidding Machine Operator Name Role Phone Bowen Juarez MD Primary Care Provider [phone] Bowen Juarez MD Primary Care Provider [phone] Bowen Juarez MD Primary Care Provider [phone] Unknown, Notinfile Primary Care Provider Unavail able No, Physician Primary Care Provider [phone] Maggie Fields MD Primary Care Provider [phone] Referral, Self Unavailable Unavailable Betty Soriano MD Primary Care Provider [phone] Encounter Details Date Type Department Care Team (Late st Contact Info) Description 08/24/2016 Orders Only [facility] ProviderJessenia MD [address] [place] [address] Social History Tobacco Use Types Packs/Day Years Used Date Smoking Tobacco: Never Alcohol Use Standard Drinks/Week Comments Yes 0 (1 standard drink = 0.6 oz pur e alcohol) Sex and Gender Information Value Date Recorded Sex Assigned at Not on file 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 Gender Identity Male 03/23/2020 7:25 PM CDT [...] on filedocumented in this encounter Care Teams Deskidding Machine Operator Relationship Specialty Start Date End Date Bowen Juarez MD [address] [address] PCP - General 02/11/17 05/24/19 Bowen Juarez MD [address] [address] PCP - General 09/30/16 02/10/17 Bowen Juarez MD [address] [address] PCP - General 12/16/15 09/29/16 Unknown, Notinfile PCP - General 05/25/19 09/06/19 No, Physician PCP - General 09/07/19 01/10/20 Maggie Fields MD PCP - General Family Medicine 01/11/20 11/26/21 Betty Soriano MD PCP - General Nurse Practitioner 11/27/21 Referral, Self Referring Physician Otolaryngology 05/14/20 documented as of this encounter
--- OUTSIDE RECORDS SUMMARY | 2025-05-20 14:11 | XMS_ITS | Encounter Summary ---
Author Organization [facility] Address [address] [place] [address] Care Team Providers Care Package Wrapper Name Role Phone Betty Soriano NP Primary Care Provider [phone] Encounter Details Date Type Department Care Team (Late st Contact Info) Description 05/10/2024 [email or web address] Message Enc [facility] Medical Group Family Medicine - [place] [address] [facility] [address] [place] [phone] Betty Soriano, ADAN [address] [place] [address] [place] [address] [place] Social History Tobacco Use Types Packs/Day Years [...] CDT Gender Identity Male 11/11/2021 1:16 PM ROUGHER MACHINE OPERATOR Sexual Orientation Straight 11/11/2021 1: 16 PM ROUGHER MACHINE OPERATOR documented as of this encounter Functional Status * Calculated C-SSRS Risk Score (Lifetime/Recent) Answer Date of Assessment Author Status No Risk Indicated 05/11/2024 10:58 AM CDT Dirk Henriquez RN Active * Schleicher Suicide Severity Rating Scale (Screener/Recent Self-Report) Question [...] Description 06/14/2025 10:40 AM CDT Office Visit [facility] Multispecialty Care - [facility] 3 [facility], [address] [place] [address] Mery Winters NP 3 [facility] [address] [place] [address] 12/12/2025 12:26 PM ROUGHER MACHINE OPERATOR Hospital Encounter [facility] [place] [address] Bogdan Cardoza MD [address] [address] 12/12/2025 12:26 PM ROUGHER MACHINE OPERATOR - 12/12/2025 12:56 PM ROUGHER MACHINE OPERATOR Surgery [facility] [place]o/[place] [address] Bogdan Cardoza MD [address] [address] COLONOSCOPY SCREENING Scheduled Procedures Name Priority Associated Diagnoses Date/Ti me COLONOSCOPY SCREENING Screening for colon cancer 12/12/2025 12:26 PM ROUGHER MACHINE OPERATOR documented as of this encounter Visit Diagnoses Not on filedocumented in this encounter Additional Health Concerns Infection Onset Date Last Indicated Resolved Time COVID-19 Rule Out 10/09/2024 10/09/2024 10/09/2024 9:41 AM ROUGHER MACHINE OPERATOR COVID-19 Confirmed 10/09/2024 10/09/2024 12:33 AM ROUGHER MACHINE OPERATOR COVID-19 Rule Out 11/23/2024 11/23/2024 11/23/2024 10:33 AM ROUGHER MACHINE OPERATOR Respiratory Rule Out 04/29/2025 04/29/2025 025 11:40 AM CDT Assessment Noted Time PHQ-9 Depression Total Score: 1 01/28/20 21 9:43 AM CDT documented as of this encounter Care Teams Package Wrapper Relationship Specialty Start Date End Date Betty Soriano NP [address] [place] [address] PCP - General NURSE PRACTITIONER 01/22/21 documented as of this encounter
--- OUTSIDE RECORDS SUMMARY | 2025-05-20 14:11 | XMS_ITS | Encounter Summary ---
Author Organization [facility] Address [address] [place] [address] Care Team Providers Care Drug Coordinator Name Role Phone Betty Soriano NP Primary Care Provider [phone] Encounter Details Date Type Department Care Team (Late st Contact Info) Description 12/13/2023 Answerology Message Enc [facility] Family Medicine [facility] [address] [facility] [address] [place] [phone] Betty Soriano, AIR TRAFFIC COORDINATOR [address] [place], [place] [phone] Lab Results Social History Tobacco Use Types Packs/Day Years [...] CDT Gender Identity Male 11/11/2021 1:16 PM BRICK OFF BEARER Sexual Orientation Straight 11/11/2021 1: 16 PM BRICK OFF BEARER documented as of this encounter Plan of Treatment Upcoming Encounters Date Type Department Care Team (Latest Contact Info) Description 06/14/2025 10:40 AM CDT Office Visit [facility] Multispecialty Care - [address], [address] [place] [address] Mery Winters NP 3 [facility] [address] [place] [address] 12/12/2025 12:26 PM BRICK OFF BEARER Hospital Encounter [facility] [address] Bogdan Cardoza MD 3 [facility] Jorge Luis [address] [place] [address] 12/12/2025 12:26 PM BRICK OFF BEARER - 12/12/2025 12:56 PM BRICK OFF BEARER Surgery [facility] [place] [address] Bogdan Cardoza MD 3 [facility] Jorge [address] [place] [address] COLONOSCOPY SCREENING Scheduled Procedures Name Priority Associated Diagnoses Date/Ti me COLONOSCOPY SCREENING Screening for colon cancer 12/12/2025 12:26 PM BRICK OFF BEARER documented as of this encounter Visit Diagnoses Not on filedocumented in this encounter Additional Health Concerns Infection Onset Date Last Indicated Resolved Time COVID-19 Rule Out 01/24/2024 01/24/2024 01/24/2024 1:58 PM CDT COVID-19 Rule Out 01/31/2024 01/31/2024 02/01/2024 7:59 AM CDT COVID-19 Rule Out 10/09/2024 10/09/2024 10/09/2024 9:41 AM BRICK OFF BEARER COVID-19 Confirmed 10/09/2024 10/09/2024 12:33 AM BRICK OFF BEARER COVID-19 Rule Out 11/23/2024 11/23/2024 11/23/2024 10:33 AM BRICK OFF BEARER Respiratory Rule Out 04/29/2025 04/29/202504/29/2 025 11:40 AM CDT Assessment Noted Time PHQ-9 Depression Total Score: 1 01/28/20 21 9:43 AM CDT documented as of this encounter Care Teams Drug Coordinator Relationship Specialty Start Date End Date Betty Soriano NP [address] [place] [address] PCP - General NURSE PRACTITIONER 01/22/21 documented as of this encounter
--- OUTSIDE RECORDS SUMMARY | 2025-05-20 14:11 | XMS_ITS | Encounter Summary ---
Author Organization [facility] Address [address] [place] [address] Care Team Providers Care Project Mgr Name Role Phone Betty Soriano NP Primary Care Provider [phone] [phone] Encounter Details Date Type Department Care Team (Late st Contact Info) Description 11/20/2024 Evolero Message Enc [facility] Medical [facility] Family Medicine - [place] [address] [facility] [address] [place] [phone] Betty Soriano, FORM BUILDER [address] [place], [place] [id number] Flu? Crud? 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 Question Answer Date of Assessment Author Status Little interest or pleasure in doing things Not at all 11/23/2024 10:09 AM Radha Vasquez MA Act gertrudis Feeling down, depressed, or hopeless Not at all 11/23/2024 10:09 AM Radha Vasquez MA Active Patient Health Questionnaire-2 Score 0 11/23/2024 10:09 AM Radha Vasquez MA Active * If you checked off any problems on this questionnaire so far, Question Answer Date of Assessment Author Status How difficult have these problems made it for you to do your work, take care of things at home, or get along with other people? Not difficult at all 11/23/2024 10:09 AM Radha Vasquez MA Active documented as of this encounter Progress Notes * Betty Soriano NP - 11/21/2024 10:48 AM CST If pt has only had symptoms for 2 days then supportive therapy is still recommended. If he is having any breathing issues, congestion he feels in his chest then we would need to assess in him office or to seek our urgent care if he needs assessed. Provide him what I typically recommend Mucinex to help thin out his secretions Tylenol for fever/pain control. DRY HOUSEKEEPER * Radha Sotelo MA - 11/21/2024 9:00 AM CST Please advise DRY HOUSEKEEPER documented in this encounter Plan of Treatment Upcoming Encounters Date Type Department Care Team (Latest Contact Info) Description 06/14/2025 10:40 AM CDT Office Visit [facility] Multispecialty Care - [facility] [address] [facility], [address] [place] [id number] Mery Winters NP 3 [facility] [address] [place] [address] 12/12/2025 12:26 PM LAUNDRY HOUSEKEEPER Hospital Encounter [facility] [place] [address] Bogdan Cardoza MD 3 [facility] [address] [place] [address] 12/12/2025 12:26 PM LAUNDRY HOUSEKEEPER - 12/12/2025 12:56 PM LAUNDRY HOUSEKEEPER Surgery [place] [facility] [place] [address] Bogdan Cardoza MD 3 [facility] [address] [place] [address] COLONOSCOPY SCREENING Scheduled Procedures Name Priority Associated Diagnoses Date/Ti me COLONOSCOPY SCREENING Screening for colon cancer 12/12/2025 12:26 PM LAUNDRY HOUSEKEEPER documented as of this encounter Visit Diagnoses Not on filedocumented in this encounter Additional Health Concerns Infection Onset Date Last Indicated Resolved Time COVID-19 Rule Out 11/23/2024 11/23/2024 11/23/2024 10:33 AM LAUNDRY HOUSEKEEPER Respiratory Rule Out 04/29/2025 04/29/2025 025 11:40 AM CDT Assessment Noted Time PHQ-9 Depression Total Score: 1 01/28/20 21 9:43 AM CDT documented as of this encounter Care Teams Project Mgr Relationship Specialty Start Date End Date Betty Soriano NP [address] [place] [address] PCP - General NURSE PRACTITIONER 01/22/21 documented as of this encounter
--- OUTSIDE RECORDS SUMMARY | 2025-05-20 14:11 | XMS_ITS ---
Author Organization Unknown Medications Medication Instructions Effective Dates (start - stop) Status albuterol 0.833 MG/ML / ipratropium bromide 0.167 MG/ML Inhalation Solution [id number]:00:00.000+00:0 0 - Completed 60 ACTUAT fluticasone propio samantha 0.5 MG/ACTUAT / salmeterol 0.05 MG/ACTUAT Dry Powder Inhaler [Advair] 7755-96-76L71:00:00.000+00:0 0 - Completed hydrocortisone 10 MG/ML / ne omycin 3.5 MG/ML / polymyxin B 53553 UNT/ML Ophthalmic Suspension 4959-90-97H53:00:00.000+0 0:0 0 - Completed 30 ACTUAT fluticasone furoat e 0.2 MG/ACTUAT / vilanterol 0.025 MG/ACTUAT Dry Powder Inhaler [Breo] 8530-92-56K71:00:00.000+00:0 0 - Completed codeine phosphate 2 MG/ML / guaifenesin 20 MG/ML Oral Solution 3613-99-13P59:00:00 .000+00:0 0 - Completed albuterol 0.833 MG/ML / ipratropium bromide 0.167 MG/ML Inhalation Solution 2082-31-29F70:00:00.000+00:0 0 - Completed 60 ACTUAT fluticasone propio samantha 0.5 MG/ACTUAT / salmeterol 0.05 MG/ACTUAT Dry Powder Inhaler [Advair] [id number]:00:00.000+00:0 0 - Completed acetaminophen 325 MG / hydro codone bitartrate 7.5 MG Oral Tablet 7922-16-19T98:00:00.000+ 00:0 0 - Completed 30 ACTUAT fluticasone furoat e 0.2 MG/ACTUAT / vilanterol 0.025 MG/ACTUAT Dry Powder Inhaler [Breo] 2681-59-53N07:00:00.000+00:0 0 - Completed hydrocortisone 10 MG/ML / ne omycin 3.5 MG/ML / polymyxin B 60472 UNT/ML Ophthalmic Suspension 5869-13-66W16:00:00.000+0 0:0 0 - Completed 60 ACTUAT fluticasone propio samantha 0.5 MG/ACTUAT / salmeterol 0.05 MG/ACTUAT Dry Powder Inhaler [Advair] 9238-59-25G48:00:00.000+00:0 0 - Completed 60 ACTUAT fluticasone propio samantha 0.5 MG/ACTUAT / salmeterol 0.05 MG/ACTUAT Dry Powder Inhaler [Advair] 1906-28-07R35:00:00.000+00:0 0 - Completed amoxicillin 875 MG / clavula samantha 125 MG Oral Tablet 7345-93-95Y10:00:00.000+00:0 0 - Completed codeine phosphate 2 MG/ML / guaifenesin 20 MG/ML Oral Solution [id number]:00:00 .000+00:0 0 - Completed nortriptyline 25 MG Oral Capsule 9189-94-38T96:00:00.000+00:0 0 - Completed [id number] 200 ACTUAT albuter ol 0.09 MG/ACTUAT Metered Dose Inhaler [id number]:00:00.000+00:0 0 - Completed [id number] 200 ACTUAT albuter ol 0.09 MG/ACTUAT Metered Dose Inhaler 2766-20-16C69:00:00.000+00:0 0 - Completed prednisone 20 MG Oral Tablet 01-13-20:00:00.000+00:0 0 - Completed - [id number]:00 :00.000+00:0 0 - Completed [id number] 200 ACTUAT albuter ol 0.09 MG/ACTUAT Metered Dose Inhaler 8210-14-27R46:00:00.000+00:0 0 - Completed [id number] 200 ACTUAT albuter ol 0.09 MG/ACTUAT Metered Dose Inhaler 7272-18-14L87:00:00.000+00:0 0 - Completed nortriptyline 25 MG Oral Capsule 7919-51-58R89:00:00.000+00:0 0 - Completed prednisone 20 MG Oral Tablet 01-15-11:00:00.000+00:0 0 - Completed gabapentin 100 MG Oral Capsule 183-65-28F12:00:00.000+00:0 0 - Completed prednisone 10 MG Oral Tablet 01-15-14:00:00.000+00:0 0 - Completed nortriptyline 25 MG Oral Capsule 9436-57-79K85:00:00.000+00:0 0 - Completed famotidine 40 MG Oral Tablet 12-24-22:00:00.000+00:0 0 - Completed montelukast 10 MG Oral Tablet 04-06-29:00:00.000+00:0 0 - Completed 24 HR diltiazem hydrochlorid e 240 MG Extended Release Oral Capsule [Dilt] 3628-25-44S37:00:00.000+00:0 0 - Completed lisinopril 40 MG Oral Tablet 12-24-24:00:00.000+00:0 0 - Completed lisinopril 40 MG Oral Tablet 01-16-03:00:00.000+00:0 0 - Completed cephalexin 500 MG Oral Capsule 936-40-87D12:00:00.000+00:0 0 - Completed montelukast 10 MG Oral Tablet 05-04-16:00:00.000+00:0 0 - Completed 24 HR diltiazem hydrochlorid e 240 MG Extended Release Oral Capsule [Dilt] [id number]:00:00.000+00:0 0 - Completed {6 (azithromycin 250 MG Oral Tablet) } Pack [id number]:00:00.000+00:0 0 - Completed 24 HR diltiazem hydrochlorid e 240 MG Extended Release Oral Capsule [Dilt] [id number]:00:00.000+00:0 0 - Completed famotidine 40 MG Oral Tablet 01-12-19:00:00.000+00:0 0 - Completed lisinopril 40 MG Oral Tablet 01-13-03:00:00.000+00:0 0 - Completed azelastine hydrochloride 0.1 37 MG/ACTUAT Metered Dose Nasal Collins 4987-86-45G44:00:00 .000+00:0 0 - Completed benzonatate 100 MG Oral Capsule 6890-11-41N70:00:00.000+00:0 0 - Completed azelastine hydrochloride 0.1 37 MG/ACTUAT Metered Dose Nasal [place] 3727-90-22E71:00:00 .000+00:0 0 - Completed lisinopril 40 MG Oral Tablet 12-21-24:00:00.000+00:0 0 - Completed famotidine 40 MG Oral Tablet 01-16-03:00:00.000+00:0 0 - Completed famotidine 40 MG Oral Tablet 12-21-24:00:00.000+00:0 0 - Completed montelukast 10 MG Oral Tablet 06-01-27:00:00.000+00:0 0 - Completed montelukast 10 MG Oral Tablet 04-09-25:00:00.000+00:0 0 - Completed 24 HR diltiazem hydrochlorid e 240 MG Extended Release Oral Capsule [Dilt] [id number]:00:00.000+00:0 0 - Completed rosuvastatin calcium 40 MG O ral Tablet [id number]:00:00.000+00:0 0 - Completed 24 HR isosorbide mononitrate 60 MG Extended Release Oral Tablet 7113-70-98F99:00:00.000+0 0:0 0 - Completed pantoprazole 40 MG Delayed R elease Oral Tablet 2494-23-05A98:00:00.000+00:0 0 - Completed 24 HR isosorbide mononitrate 60 MG Extended Release Oral Tablet 1895-58-90W01:00:00.000+0 0:0 0 - Completed 24 HR isosorbide mononitrate 60 MG Extended Release Oral Tablet [id number]:00:00.000+0 0:0 0 - Completed ofloxacin 3 MG/ML Ophthalmic Solution [id number]:00:00.000+00:0 0 - Completed 24 HR isosorbide mononitrate 60 MG Extended Release Oral Tablet 8678-04-01I94:00:00.000+0 0:0 0 - Completed nebivolol 10 MG Oral Tablet 2021:00:00.000+00:0 0 - Completed pantoprazole 40 MG Delayed R elease Oral Tablet 6339-20-01X93:00:00.000+00:0 0 - Completed rosuvastatin calcium 40 MG O ral Tablet 4973-49-10E56:00:00.000+00:0 0 - Completed rosuvastatin calcium 40 MG O ral Tablet 8911-46-95R55:00:00.000+00:0 0 - Completed pantoprazole 40 MG Delayed R elease Oral Tablet 7937-48-69Z62:00:00.000+00:0 0 - Completed nebivolol 10 MG Oral Tablet 2021:00:00.000+00:0 0 - Completed rosuvastatin calcium 40 MG O ral Tablet 7166-21-93D46:00:00.000+00:0 0 - Completed pantoprazole 40 MG Delayed R elease Oral Tablet 1845-86-46U06:00:00.000+00:0 0 - Completed rosuvastatin calcium 40 MG O ral Tablet 7812-64-56W21:00:00.000+00:0 0 - Completed nebivolol 10 MG Oral Tablet 2022:00:00.000+00:0 0 - Completed nebivolol 10 MG Oral Tablet 2022:00:00.000+00:0 0 - Completed prasugrel 10 MG Oral Tablet 2021:00:00.000+00:0 0 - Completed prasugrel 10 MG Oral Tablet 2022:00:00.000+00:0 0 - Completed prasugrel 10 MG Oral Tablet 2022:00:00.000+00:0 0 - Completed [id number] 200 ACTUAT albuter ol 0.09 MG/ACTUAT Metered Dose Inhaler [id number]:00:00.000+00:0 0 - Completed Patient Care team information Name Category Status Period Participants - - Proposed period not known -
--- OUTSIDE RECORDS SUMMARY | 2025-05-20 14:11 | XMS_ITS | Encounter Summary ---
Author Organization [facility] Healthcare Address [address] [place] [address] Care Team Providers Care Service Delivery Consultant Name Role Phone Referral, Self Unavailable Unavailable Betty Soriano MD Primary Care Provider +1- [phone] Encounter Details Date Type Department Care Team (Late st Contact Info) Description 04/05/2025 Results Follow-Up [facility] Medical Group Convenient Care at [address] [address] Daniel Dunbar NP [address] [place] [address] [address] [place] [address] XR Elbow Left 3+ Vw Social History Tobacco Use Types Packs/Day Years Used Date Smoking Tobacco: Never Smokeless Tobacco: Never Alcohol Use Standard Drinks/Week Comments Yes 0 (1 standard drink = 0.6 oz pur e alcohol) Sex and Gender Information Value Date Recorded Sex Assigned at Not on file 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
--- OUTSIDE RECORDS SUMMARY | 2025-05-20 14:11 | XMS_ITS | Encounter Summary ---
Author Organization [facility] Address [address] [place] [address] Care Team Providers Care Vascular Ultrasound Technician Name Role Phone Betty Soriano NP Primary Care Provider [phone] [phone] Encounter Details Date Type Department Care Team (Late st Contact Info) Description 03/26/2025 Zhitu Message Enc [facility] - [address], Suite [facility] [place] [address] [facility] Social History Tobacco Use Types Packs/Day Years [...] CDT Gender Identity Male 11/11/2021 1:16 PM 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 [place] [address] Bogdan Cardoza MD [address] [facility] [address] [place] [address] 12/12/2025 12:26 PM SHIRRING TENDER - 12/12/2025 12:56 PM SHIRRING TENDER Surgery [place] [place] [address] Bogdan Cardoza MD 3 [facility] [address] [place] [address] COLONOSCOPY SCREENING Scheduled Procedures Name Priority Associated Diagnoses Date/Ti me COLONOSCOPY SCREENING Screening for colon cancer 12/12/2025 12:26 PM SHIRRING TENDER documented as of this encounter Visit Diagnoses Not on filedocumented in this encounter Additional Health Concerns Infection Onset Date Last Indicated Resolved Time Respiratory Rule Out 04/29/2025 04/29/2025 025 11:40 AM CDT Assessment Noted Time PHQ-9 Depression Total Score: 1 01/28/20 21 9:43 AM CDT documented as of this encounter Care Teams Vascular Ultrasound Technician Relationship Specialty Start Date End Date Betty Soriano NP [address] [place] [address] PCP - General NURSE PRACTITIONER 01/22/21 documented as of this encounter
--- OUTSIDE RECORDS SUMMARY | 2025-05-20 14:11 | XMS_ITS | Clinical Summary ---
Author Organization [facility] Address [address] [place] [address] Care Team Providers Care Lever Operator Name Role Phone Betty Soriano NP Primary Care Provider [phone] Allergies Active Allergy Reactions Criticality Noted Date Comments Ezetimibe Other (see comment) Low 01/19/2021 depression Ibuprofen Anaphylaxis,Shortness of Breath High 12/16 Morphine Anaphylaxis,Shortness of Breath High 05/2019 Medications rosuvastatin 40 MG tablet Take 1 tablet (40 mg total) by mouth daily. 10/30/20 20 Active lisinopril 40 MG tablet Take 1 tablet (40 mg total) by mouth daily. 11/22/19 21 Active prasugrel (EFFIENT) 10 MG tablet Take 1 tablet (10 mg total) by mouth daily. 09/17/20 22 Active ondansetron (ZOFRAN) 4 MG tabletIndication s:Nausea Take 1 tablet (4 mg total) by mouth every 8 (eight) hours as needed. 30 tablet 07/11/20 24 Active Albuterol-Budeso nide (AIRSUPRA) 90-80 MCG/ACT AerosolIndicatio ns:Moderate persistent asthma without complication (HHS/HCC) Inhale 2 puffs into the lungs every 4 (four) hours as needed (for shortness of breath and wheezing). 32.1 g 11/23/19 25 Active pantoprazole EC (PROTONIX) 40 MG tabletIndication s:Gastroesophage al reflux disease, unspecified whether esophagitis present Take 1 tablet (40 mg total) by mouth daily. 90 tablet 1 12/21/19 25 Active montelukast (SINGULAIR) 10 MG tabletIndication s:Seasonal allergies TAKE 1 TABLET BY MOUTH EVERY DAY 90 tablet 3 01/03/20 25 Active tirzepatide (ZEPBOUND) 5 MG/0.5ML injectionIndicat ions:Weight Loss Inject 5 mg into the skin once a week. Indications: Weight Loss 9 mL 03/04/20 25 Active ELIQUIS 5 MG tablet Take 1 tablet (5 mg total) by mouth 2 (two) times daily. Active famotidine (PEPCID) 40 MG tablet TAKE 1 TABLET BY MOUTH LATE IN THE DAY 12/03/19 25 Active dilTIAZem CD 360 MG CAPSULE SR 24 HR 24 hr capsule Take 1 capsule by mouth daily. Active guaiFENesin-code ine (GUAIFENESIN AC) 100-10 MG/5ML syrupIndications :Cough Take 5 mLs by mouth every 4 (four) hours as needed for Cough. Indications: Cough 237 mL 04/29/20 25 Active fluticasone-salm eterol (ADVAIR DISKUS) 100-50 MCG/ACT inhaler Inhale 1 puff into the lungs 2 (two) times daily. Active Na sulfate-K sulfate-Mg sulfate (SUPREP BOWEL PREP KIT) 17.5-3.13-1.6 GM/177ML SolutionIndicati ons:Screening for colon cancer Take 177 mLs by mouth every 12 (twelve) hours. Per GI instructions 354 mL 05/10/20 25 Active pantoprazole EC (PROTONIX) 40 MG tabletIndication s:Pharyngoesopha geal dysphagia,Gastro esophageal reflux disease without esophagitis Take 1 tablet (40 mg total) by mouth 2 (two) times a day. 60 tablet 05/10/20 25 Active isosorbide mononitrate ER 60 MG 24 hr tablet Take 1 tablet (60 mg total) by mouth daily. 01/13/20 21 025 Discontinu ed(Patient /family declined) aspirin EC (ECOTRIN) 81 MG tablet Take 1 tablet (81 mg total) by mouth daily. 025 Discontinu ed(Patient /family declined) cetirizine 5 MG tablet 2 tablets (10 mg total). 06/16/2 025 Discontinu ed(Patient /family declined) nebivolol 10 MG tablet 11/10/20 025 Discontinu ed(Patient /family declined) DILT-XR 240 MG 24 hr capsule 11/10/20 025 Discontinu ed(Patient /family declined) ipratropium-albu terol (DUONEB) 0.5-2.5 (3) MG/3ML Solution Inhale 3 mLs into the lungs every 6 (six) hours as needed. 02/26/20 025 Discontinu ed(Patient /family declined) fluticasone-salm eterol (ADVAIR DISKUS) 500-50 MCG/ACT inhaler Inhale 1 puff into the lungs 2 (two) times daily. 01/18/20 025 Discontinu ed(Patient /family declined) furosemide (LASIX) 20 MG tablet Take 1 tablet (20 mg total) by mouth daily. Discontinu ed(Patient /family declined) albuterol sulfate HFA 108 (90 Base) MCG/ACT inhalerIndicatio ns:Shortness of breath INHALE 2 PUFFS BY MOUTH EVERY 4 HOURS NEEDED FOR WHEEZE OR FOR SHORTNESS OF BREATH 18 g 1 09/03/20 24 025 Discontinu ed(Patient /family declined) guaiFENesin-code ine (GUAIFENESIN AC) 100-10 MG/5ML syrupIndications :Cough Take 10 mLs by mouth every 4 (four) hours as needed for Cough. Indications: Cough 120 mL 10/09/20 24 025 Discontinu ed(Patient /family declined) guaiFENesin-code ine (CHERATUSSIN AC) 100-10 MG/5ML syrupIndications :2019 Novel Coronavirus Take 5 mLs by mouth every 4 (four) hours as needed for Cough. Indications: 2019 Novel Coronavirus 120 mL 11/23/19 25 025 Discontinu ed(Patient /family declined) tirzepatide (ZEPBOUND) 7.5 MG/0.5ML injectionIndicat ions:Weight Loss Inject 7.5 mg into the skin once a week. Indications: Weight Loss 9 mL 12/31/19 25 025 Discontinu ed(Patient /family declined) predniSONE (DELTASONE) 20 MG tabletIndication s:Acute cough Take 1 tablet (20 mg total) by mouth daily for 5 days. 5 tablet 04/29/20 25 025 Active Problems Problem Noted Date Diagnosed Date Daily headache 11/23/2024 Overview (11/23/2024): Pt also notes that he has been having a constant, daily headache since he had Covid at the end of September. He states he hurts worse when he coughs or sneezes. He reports some neck pain, but also a frontal headache and right temporal headache. Denies any blurred vision. MRI of the brain ordered that was negative for any acute findings. 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 Coronary arteriosclerosis 01/25/2020 Essential hypertension 01/25/2020 Gastroesophageal reflux disease 01/25/2020 Hyperlipidemia 01/25/2020 Class 2 severe obesity due t o excess calories with serious comorbidity and body mass index (BMI) of 38.0 to 38.9 in adult 10/02/2018 History of myocardial infarction 01/14/2017 Overview (01/27/2021): H/O acute myocardial infarction H/O acute myocardial infarction Resolved Problems Problem Noted Date Diagnosed Date Resolved Date Screening for colon cancer 05/10/2025 0 05/13/2025 Screening for colon cancer 05/10/2025 0 05/20/2025 Encounters Date Type Department Care Team Description 05/15/2025 Scan [facility] Scanned, [facility] Colonoscopy Report (SCAN) 05/12/2025 Scan [facility] Scanned, [facility] 05/10/2025 2:20 PM CDT Office Visit [facility] [place] [address] [place] [phone] Teresa White NP Follow Up (F/u pain/trouble swallowing) 05/10/2025 [facility] [place] [facility] - [address] [place] [address] Bogdan Cardoza MD 05/10/2025 Travel 04/29/2025 11:00 AM CDT Office Visit [facility] - [address] [address] Betty Soriano NP Cough (Patient presents with c/o cough, drainage, head/chest congestion, and vomiting x no fever or sob) 04/29/2025 Travel 04/24/2025 [facility]phone [facility] [place] [facility] - [address] [place] [address] Bogdan Cardoza MD Throat Problem 04/17/2025 Scan [facility] SRVCS Scanned, [facility] 04/09/2025 MyChart Message [facility] [address], [address] [place] [address] [facility]isab[facility] Provider CTA results 03/26/2025 MyChart Message [facility] [place] [facility] - [address], [address] [place] [address] [facility]isab[facility] Provider results 03/26/2025 Results Follow-Up [facility] - [address], [address] [place] [phone] Abdirahman Winters NP CTA HEAD+NECK 03/20/2025 9:41 AM CDT - 03/20/2025 11:59 PM CDT Hospital Encounter [facility] [address] [place] [address] Abdirahman Winters NP Discharge Disposition: Home or Self Care (Routine Discharge) 03/20/2025 Travel 03/12/2025 8:00 AM CDT Office Visit [facility] - [address], [address] [place] [phone] Abdirahman Winters NP Headache (Started experiencing headaches in September 2024, reports he had covid around that same time. Lasted until , has since had a few off and on, but reports they have for the most part gone away. ) 03/12/2025 Travel 03/01/2025 MyChart Message Enc [facility] - [place] [address] [facility] [address] [place] [address] Betty Soriano, ADAN Zepbound from Last 3 Months Immunizations Immunization Administration Dates Next Due Fluzone (IIV3, Trivalent, 0. 5 ML Prefilled Syringe) 08/15/2024 Fluzone 6 Months+ Quad (0.5 mL Prefilled Syringe) 11/23/2023,10/18/2022,12/30/2021,2020 Hepatitis B (Generic: Adult) 01/25/2020 Hepatitis B(Engerix B Adult) 11/23/2023,03/12/20 21 Influenza Adult (Generic) 07/14/2020,01/25/2020 MMR 05/11/1990 MMR (MMRII) 08/20/2024 Opv 04/19/1989 PFIZER COVID-19 (ORIGINAL FORMULATION, PURPLE CAP) mRNA, LNP-S, PF, 30 MCG/0.3 ML DOSE 03/02/2021,02/09/2021 Pneumococcal (Prevnar 20) 11/23/2023 Tdap (Generic) 01/22/2020 Varicella (Varivax) 03/12/2021 Varicella Vaccine 05/20/2020 Family History Medical History Relation Comments Cancer Brother 1 Diabetes Brother 1 Hypertension Brother 1 Prostate Cancer Brother 1 Cancer Brother 2 Prostate Cancer Brother 2 Alzheimers Father Cancer Father Heart Disease Father CA Father Prostate Cancer Father Hypertension Mother Alzheimers Paternal Grandfather Hypertension Sister Relation Status Comments Brother 1 Brother 2 Father Mother Paternal Grandfather Sister Social History Tobacco Use Types Packs/Day Years Used Date Smoking Tobacco: Never Passive Smoke Exposure: Past Smokeless Tobacco: Never Tobacco Cessation:Counseling Given: No Comments:not a smoker Alcohol Use Standard Drinks/Week Comments Not Currently 0 (1 standard drink = 0.6 oz pur e alcohol) social PHQ-2 Answer Date Recorded Patient Health Questionnaire-2 Score 0 05/10/2025 Sex and Gender Information Value Date Recorded Sex Assigned at Male 04/29/2025 11:11 AM CDT Legal Sex Male 11:19 PM CDT Gender Identity Male 11/11/2021 1:16 PM BUTTON FACING MACHINE OPERATOR Sexual Orientation Straight 11/11/2021 1: 16 PM BUTTON FACING MACHINE OPERATOR Last Filed Vital Signs Vital Sign Reading Time Taken Comments Blood Pressure 136/78 05/10/2025 2:10 PM CDT Pulse 70 05/10/2025 2:10 PM CDT Temperature 36.7 C (98 F) 05/10/2025 2:10 PM CDT Respiratory Rate 20 05/10/2025 2:10 PM CDT Oxygen Saturation 98% 05/10/2025 2:10 PM CDT Inhaled Oxygen Concentration - - Weight 130.6 kg (288 lb) 05/10/2025 2:10 PM CDT Height 193 cm (6' 4) 05/10/2025 2:10 PM CDT Body Mass Index 35.06 05/10/2025 2:10 PM CDT Plan of Treatment Upcoming Encounters Date Type Department Care Team (Latest Contact Info) Description 06/14/2025 10:40 AM CDT Office Visit [facility] - [address], [address] [place] [address] Abdirahman Winters NP 3 [facility] [address] [place] [address] 12/12/2025 12:26 PM BUTTON FACING MACHINE OPERATOR Hospital Encounter [facility] [place] [address] Bogdan Cardoza MD 3 [facility] [address] [place] [address] 12/12/2025 12:26 PM BUTTON FACING MACHINE OPERATOR - 12/12/2025 12:56 PM BUTTON FACING MACHINE OPERATOR Surgery [facility] [place] [address] Bogdan Cardoza MD 3 [facility] [address] [place] [id number] COLONOSCOPY SCREENING Scheduled Procedures Name Priority Associated Diagnoses Date/Ti me COLONOSCOPY SCREENING Screening for colon cancer 12/12/2025 12:26 PM BUTTON FACING MACHINE OPERATOR Health Maintenance Due Date Last Done Comments ASCVD Statin 1979 COVID-19 Vaccine (3 - 2023-2 5 season) 2024 03/02/2021, 02/09/2021 Annual Physical 11/23/2024 11/23/2023, 01/27/2021 ASCVD LDL 12/13/2024 12/13/2023, 11/24/2022 DTaP, Tdap and Td Vaccines ( 2 - Td or Tdap) 01/21/2030 01/22/2020 Colorectal Cancer Screening Colonoscopy (10 Years) 05/15/2035 05/15/2025 Hepatitis C Completed 11/24/2022 Hepatitis B Vaccines Completed 11/23/2023, 03/12/2021, 01/25/2020 Pneumococcal Vaccine: Pediatrics (0 to 5 Years) and At-Risk Patients (6 to 49 Years) Completed 11/23/2023 PHQ-2 (Physician [place]) Completed 05/10/2025 HPV Vaccines Aged Out No longer eligi ble based on patient's age to complete this topic Meningococcal B Vaccine Aged Out No l onger eligible based on patient's age to complete this topic Meningococcal Vaccine Aged Out No radha carolyn eligible based on patient's age to complete this topic RSV Immunizations Under 20 Months Aged Out No longer eligible b ased on patient's age to complete this topic Goals Goal Patient Goal Type Associated Problems Recent Progress Patient-Stated? Author Autogenerat ed Goal Care Plan Autogenerated Problem No Apurva Wynn Procedures Procedure Name Priority Date/Time Associated Diagnosis Comments COLONOSCOPY GENERIC (SCAN ORDER) 05/15/2025 CORONAVIRUS (COVID-19) INFLUENZA A & B ANTIGEN IA PANEL Routine 04/29/2025 Acute cough CTA HEAD+NECK Routine 03/20/2025 10:18 AM CDT Cerebral aneurysm (HHS/HCC) Vertebrobasilar artery stenosis LIPID PANEL Routine 12/13/2023 10:28 AM BUTTON FACING MACHINE OPERATOR Hyperlipidemia, unspecified hyperlipidemia type HEPATITIS C ANTIBODY W/RFX TO HCV RNA Routine 11/24/2022 10:06 AM BUTTON FACING MACHINE OPERATOR Encounter for hepatitis C screening test for low risk patient from Last 3 Months or Most Recently Relevant to Health Maintenance Results * COLONOSCOPY GENERIC (SCAN ORDER) (05/15/2025) 05/15/2025 us [facility] Scanned SCANNING Final Resu lt * CORONAVIRUS (COVID-19) INFLUENZA A & B ANTIGEN IA PANEL (04/29/2025) CORONAVIRUS ANTIGEN IA NEGATIVE NEGATIVE [address], [place] INFLUENZA A NEGATIVE NEGATIVE [address], [place] INFLUENZA B NEGATIVE NEGATIVE [address], [place] Internal Control: VALID VALID [address], [place] NASAL STRUCTURE / Unknown 04/29/2025 Betty Soriano NP MICROBIOLOGY - GENERAL OR DERABLES Final Result -[address], [place] [address] [facility] [address] [place] [address], * CTA HEAD+NECK (03/20/2025 10:18 AM CDT) Anatomical Region Laterality Modality Head, Neck Computed Tomogra phy 03/26/2025 7:58 AM CDT Impressions 03/26/2025 8:08 AM CDT IMPRESSION: Head CTA: 1. No acute intracranial hemorrhage or mass effect 2. No focal intracranial stenosis, large vessel occlusion or aneurysm 3. 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 Neck CTA: 1. No measurable carotid or vertebral artery stenosis. No evidence of aneurysm or dissection within the neck. 2. Coronary artery calcification. Referred By: ABDIRAHMAN WINTERS Interpreted By: Celso Degroot MD, 03/26/2025 7:58 AM Narrative 03/26/2025 8:08 AM CDT [address] [place] [address] EXAMINATION:CT angiogram of the head and neck with contrast 03/20/2025 INDICATION:Headaches, cerebral aneurysm, vertebral basilar artery stenosis TECHNIQUE: Axial CT images of the head were acquired without intravenous contrast. Axial CT images of the neck were acquired following demonstration of 95 mL Isovue-370 contrast intravenously. Axial sagittal and coronal MIPS were constructed. Carotid stenosis is reported according to NASCET criteria. Radiation dose reduction techniques were used. COMPARISON: Brain MRI 10/26/2018 FINDINGS:Head CTA: No acute intracranial hemorrhage, mass effect or midline shift or extra axial fluid collection. No ventriculomegaly, sulcal effacement or loss of allan/white matter differentiation No acute osseous abnormality. Paranasal sinuses and mastoid air cells are clear. The orbits and globes are unremarkable. There is opacification of the intracranial internal carotid, vertebral and basilar arteries. There is opacification of the anterior, middle and posterior cerebral arteries. The left vertebral artery is hypoplastic, particularly distal to the posterior inferior cerebellar artery. No focal intracranial stenosis, large vessel occlusion or aneurysm. Posterior communicating arteries are noted bilaterally. There is opacification the superior sagittal sinus, inferior sagittal sinus, internal cerebral veins, vein of Tor, straight sinus, transverse sinuses and sigmoid sinuses. No abnormal enhancement Neck CTA: Aortic arch and origins of great vessels are unremarkable. The innominate and proximal subclavian arteries are unremarkable. The right common carotid artery and cervical right internal carotid artery are unremarkable The left common carotid artery and cervical left internal carotid artery are unremarkable The vertebral arteries are opacified. The right vertebral artery is dominant. No measurable carotid or vertebral artery stenosis. No evidence of aneurysm or dissection within the neck. Calcification is noted within the coronary arteries. There are multiple bilateral palatine tonsilloliths. There is a slight reversal of the normal cervical lordosis. The thyroid gland is unremarkable. No acute abnormality within the visualized lung apices. Procedure Note Celso Degroot MD - 03/26/2025 [place] [id number] [facility] [place] [address] EXAMINATION:CT angiogram of the head and neck with contrast 03/20/2025 INDICATION:Headaches, cerebral aneurysm, vertebral basilar arterystenosis TECHNIQUE: Axial CT images of the head were acquired without intravenouscontrast. Axial CT images of the neck were acquired followingdemonstration of 95 mL Isovue-370 contrast intravenously. Axial sagittaland coronal MIPS were constructed. Carotid stenosis is reported accordingto NASCET criteria. Radiation dose reduction techniques were used. COMPARISON: Brain MRI 10/26/2018 FINDINGS:Head CTA: No acute intracranial hemorrhage, mass effect ormidline shift or extra axial fluid collection. No ventriculomegaly,sulcal effacement or loss of allan/white matter differentiation No acute osseous abnormality. Paranasal sinuses and mastoid air cells areclear. The orbits and globes are unremarkable. There is opacification of the intracranial internal carotid, vertebral andbasilar arteries. There is opacification of the anterior, middle andposterior cerebral arteries. The left vertebral artery is hypoplastic,particularly distal to the posterior inferior cerebellar artery. No focal intracranial stenosis, large vessel occlusion or aneurysm. Posterior communicating arteries are noted bilaterally. There is opacification the superior sagittal sinus, inferior sagittalsinus, internal cerebral veins, vein of Tor, straight sinus, transversesinuses and sigmoid sinuses. No abnormal enhancement Neck CTA: Aortic arch and origins of great vessels are unremarkable. Theinnominate and proximal subclavian arteries are unremarkable. The rightcommon carotid artery and cervical right internal carotid artery areunremarkable The left common carotid artery and cervical left internal carotid arteryare unremarkable The vertebral arteries are opacified. The right vertebral artery isdominant. No measurable carotid or vertebral artery stenosis. No evidence ofaneurysm or dissection within the neck. Calcification is noted within the coronary arteries. There are multiple bilateral palatine tonsilloliths. There is a slightreversal of the normal cervical lordosis. The thyroid gland isunremarkable. No acute abnormality within the visualized lung apices. IMPRESSION: Head CTA: 1. No acute intracranial hemorrhage or mass effect 2. No focal intracranial stenosis, large vessel occlusion or aneurysm 3. 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 Neck CTA: 1. No measurable carotid or vertebral artery stenosis. No evidence ofaneurysm or dissection within the neck. 2. Coronary artery calcification. Referred By: ABDIRAHMAN WINTERS Interpreted By: Celso Degroot MD, 03/26/2025 7:[address] Final Result * (ABNORMAL) LIPID PANEL (12/13/2023 10:28 AM BUTTON FACING MACHINE OPERATOR) [facility] Signature CHOLESTEROL 173 <200 MG/DL 12/13/2023 2:37 PM BUTTON FACING MACHINE OPERATOR [facility] TRIGLYCERIDES 180(H) <150 MG/DL 12/13/2023 2:37 PM BUTTON FACING MACHINE OPERATOR [facility] HDL 50 >40 MG/DL 12/13/2023 2:37 PM BUTTON FACING MACHINE OPERATOR [facility] LDL-C 87 <100 MG/DL 12/13/2023 2:37 PM BUTTON FACING MACHINE OPERATOR [facility] VLDL CALCULATION 36(H) 5 - 28 MG/DL 12/13/2023 2:37 PM [facility] CHOL/HDL RATIO 3.5 0.0 - 4.0 12/13/2023 2:37 PM BUTTON FACING MACHINE OPERATOR -[facility] LDL/HDL 1.7 0.41 - 2.13 12/13/2023 2:37 PM BUTTON FACING MACHINE OPERATOR [facility] NON HDL CHOLESTEROL 123 <140 MG/DL 12/13/2023 2:37 PM BUTTON FACING MACHINE OPERATOR [facility] 12/13/2023 10:2 8 AM BUTTON FACING MACHINE OPERATOR Bettykaty Soriano [facility] Final Res ult Performing Organization Address City/[facility] Co de Phone Number [facility] [address] [place] [address], * HEPATITIS C ANTIBODY W/RFX TO HCV RNA ([facility] ONLY) (11/24/2022 10:06 AM BUTTON FACING MACHINE OPERATOR) HEPATITIS C AB <0.1 0.0 - 0.9 s/co ratio [facility] 1 INTERPRETATION Comment [facility] 1 Comment: Negative Not infected with HCV, unless recent infection is suspected or other evidence exists to indicate HCV infection. 11/24/2022 10:0 6 AM BUTTON FACING MACHINE OPERATOR 11/24/2022 Narrative [facility] - 11/25/2022 5:06 AM BUTTON FACING MACHINE OPERATOR Performed at: 01 - [facility] [id number] [place] Hand: Sascha Huddleston PhD, Phone: [phone] Bettykaty Soriano [facility] Final Res ult [facility] [address] [place] [address] [facility] 1 from Last 3 Months or Most Recently Relevant to Health Maintenance Additional Health Concerns Active Problems Noted Date Diagnosed Date Autogenerated Problem 05/13/[address] [facility] Care Teams Lever Operator Relationship Specialty Start Date End Date Betty Soriano NP [address] [place] [address] [place] [address] PCP - General NURSE PRACTITIONER 01/22/21
--- OUTSIDE RECORDS SUMMARY | 2025-05-20 14:11 | XMS_ITS | Clinical Summary ---
Author Organization [facility] Address [address] [place] [address] Phone Care Team Providers Care [employer] Name Role Phone Unavailable Primary Care Provider [...] ipratropium bromide (ATROVENT) 21 mcg (0.03 %) [place], Non-Aerosol Administer 2 Sprays in each nostril [...] migh t be different from the original. Optical Instrument Inspector Dr. King Grayson Problem Noted Date Diagnosed Date Chest pain 01/22/2025 PFO (patent foramen ovale) 12/07/2024 Paroxysmal atrial fibrillation 09/26/2024 Atrial fibrillation 09/17/2024 Palpitations 09/17/2024 Persistent atrial fibrillation 09/17/2024 Coronary artery disease invo lving poarch coronary artery of poarch heart without angina pectoris 05/14/2024 Mixed hyperlipidemia 05/14/2024 Localized edema 05/14/2024 Asthma, chronic, moderate pe rsistent, with acute exacerbation 03/22/2024 Weight gain 03/22/2024 Morbid obesity with body mass index of 40.0-49.9 03/22/2024 Personal history of OK (myocardial infarction) 0 05/21/2022 Multiple pulmonary nodules [...] Type Department Care Team Description 05/20/2025 Telephone [facility] Heart and Vascular At [address] [place] [address] Neri Thomson MD post ablation question 05/16/2025 Telephone [facility] Heart and Vascular - [address] [place] [address] Gerry King MD Surgery Talk 05/15/2025 Telephone [facility] AT [address] [place] [address] Neri Thomson MD Shortness of breath 05/13/2025 7:40 AM CDT Anesthesia Event [facility] Eligibility Technician [address] [place] [address] Kevin Barron MD Waqar, Arshia, AA-C 05/13/2025 7:30 AM CDT - 05/13/2025 10:02 AM CDT Surgery [facility] Eligibility Technician [address] [place] [address] Neri Thomson MD PVI ablation 05/13/2025 5:33 AM CDT - 05/13/2025 4:34 PM CDT Hospital Encounter [facility] Interventional Care [address] [place] [address] Neri Thomson MD PAF (paroxysmal atrial fibrillation) ([facility]) Discharge Disposition: Home or Self Care 05/13/2025 5:30 AM CDT - 05/13/2025 11:59 PM CDT Hospital Encounter [facility] Laboratory Services [address] [facility], [address] [place] [address] Henri Arriaga MD Discharge Disposition: Home or Self Care 05/12/2025 Travel 05/09/2025 1:29 PM CDT - 05/09/2025 11:59 PM CDT Hospital Encounter [place] [address] [place] [address] Neri Thomson MD Discharge Disposition: Home or Self Care 05/01/2025 Telephone [facility] Heart and Vascular At [address] [place] [address] Neri Thomson MD Low heart rate 04/25/2025 Refill [facility] Heart and Vascular [address] [place] [phone] Gerry King MD 04/23/2025 External Device Data STL ABSTRACTION Provider, Abstract 04/23/2025 External Device Data STL ABSTRACTION Provider, Abstract 04/23/2025 External Device Data ST[place] ABSTRACTION Provider, Abstract 04/22/2025 Telephone [facility] AT [address] [place] [address] Neri Thomson MD Ablation instruction letter 04/18/2025 Orders Only [facility] AT [address] [place] [address] Neri Thomson MD Paroxysmal atrial fibrillation (CMS/HCC) (Primary Dx) 04/18/2025 Prep for Surgery [facility] AT [address] [place] [address] Neri Thomson MD Paroxysmal atrial fibrillation (CMS/HCC) (Primary Dx) 04/17/2025 Refill [facility] Heart and Vascular [address] [place] [address] Gerry King MD 04/16/2025 External Device Data STL ABSTRACTION Provider, Abstract 03/19/2025 External Device Data STL ABSTRACTION Provider, Abstract 02/20/2025 Orders Only [facility] Pulmonology [address] [place] [address] Brenda Cao RN 02/19/2025 External Device Data [...] on file 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 Gender Identity Not on file Sexual Orientation [...] Description 06/07/2025 10:00 AM CDT Office Visit [facility] Heart and Vascular - [address] [place] [address] Gerry King MD [address] [place] [phone] 06/27/2025 9:00 AM CDT Office Visit [facility] AT [address] [place] [address] Layla Gonzalez NP [facility] S [facility] [address] [place] [address] Health Maintenance Due Date Last [...] this topic Medical Devices Implanted Type Area Kiln Car Unloader Device Identifier Shelf Expiration Date Model / Serial / Lot Dev Vns Vasc Clsr Vascade Mvp St [id number] - [id number] Implanted:Qty : 1 on 05/13/2025 by Neri Thomson MD at [facility] Closure Device Left: Groin [employer] STEVIE [id number] 03/19/2027 800-612C- 10U / / [id number] Dev Vns Vasc Clsr Vascade Mvp St [id number] - [id number] Implanted:Qty : 1 on 05/13/2025 by Neri Thomson MD at [facility] Closure Device Left: Groin [employer] STEVIE [id number] 03/19/2027 800-612C- 10U / / [id number] 12A Dev Card[employer] Vascade Mvp Xl Vvcs 10-12fr 800-1012xl - [id number] Implanted:Qty : 1 on 05/13/2025 by Neri Thomson MD at [facility] Closure Device Right: Groin [employer] [id number] 12/13/2026 800-1012X L / / [id number] Dev Vns Vasc Clsr Vascade Mvp St [id number] - [id number] Implanted:Qty : 1 on 05/13/2025 by Neri Thomson MD at [facility] Closure Device Right: Groin [employer] STEVIE [id number] 03/19/2027 800-612C- 10U / / [id number] 12A Procedures Procedure Name Priority Date/Time Associated Diagnosis Comments PVI ABLATION Routine 05/13/2025 9:24 AM CDT PAF (paroxysmal atrial fibrillation) (CMS/HCC) POC ACTIVATED CLOTTING TIME Routine 05/13/2025 9:10 AM CDT ID ANES INSERT CATH, ART, PERCUT, SHORTTERM Routine 05/13/2025 8:55 AM CDT POC ACTIVATED CLOTTING TIME Routine 05/13/2025 8:48 AM CDT ID ANES INSERT ENDOTRACHEAL AIRWAY Routine 05/13/2025 7:59 [...] PVI ABLATION (05/13/2025 9:24 AM CDT) Narrative [facility] - 05/13/2025 4:44 PM CDT Images from [...] for a week 4. Colchicine for 48h Chocolate Coater: Neri Thomson MD Procedure Performed 1. (EP study complete with 3D mapping, EP study with left atrial recording and pacing, Transeptal Puncture, Intracardiac echo, Ablation of atrial fibrillation by pulmonary vein isolation, US guided venous access) - [id number] Anesthesia: general Operative Course: After discussing the [...] technique to bilateral femoral veins. One 8 romansh sheath placed in the right femoral vein using ultrasound and a 9 and 8 romansh sheath was placed in the left femoral [...] noted. Pre ablation surface EKG RR 868 ID 158 QRS 92 QT 370 Post ablation surface EKG and EPS as below: Post RR 900 ID 184 QRS 96 QT 400 AH 86 HV 42 AVWB 340ms AVNERP 600/320ms Total PFA applications: 34 Neri Thomson MD Estimated Blood Loss There was minimal blood loss during procedure. Neri Thomson MD CUP EP ORDERABLES Final Result Performing Organization Address City/State/[facility] Co de Phone Number [facility]# [id number] [address] [place] [address] * (ABNORMAL) POC ACTIVATED CLOTTING TIME (05/13/2025 9:10 AM CDT) Only the most recent of2 resultswithin the time period is included. ACTIVATED CLOTTING TIME POC 228(H) 74 - 137 sec 05/13/2025 9:10 AM CDT [facility] Comment:ACT testing performe d on ISTAT ACT-Kaolin cartridge. Blood 05/13/2025 9:10 AM CDT 05/13/2025 9:13 AM CDT Neri Thomson MD POINT OF CARE TESTING Final Resu lt [facility]# [id number] [place] [address] * ID ANES INSERT CATH, ART, PERCUT, SHORTTERM (05/13/2025 8:55 AM CDT) Narrative Deacon Peguero AA-C - 05/13/2025 8:55 AM CDT Deacon Peguero AA-C 05/13/2025 8:58 AM Arterial Line Insertion End Time: 05/13/2025 7:20 AM Patient location during procedure: Pre-op Staffing Performed: PORCELAIN ENAMEL LABORER/CAA Authorized by: Kevin Barron MD Performed by: [...] size: 20 G Catheter Length (in.): 1.75 [place] Identification: ultrasound guided Number of attempts: 1 Successful placement: yes Assessment: blood return through port Procedure uneventful Post-procedure: dressing applied and line secured Kevin Barron MD PROCEDURE/MINOR SURGICAL ORDE RABMILENA Final Result * ID ANES INSERT ENDOTRACHEAL AIRWAY (05/13/2025 7:59 AM CDT) Narrative Deacon Peguero AA-C - 05/13/2025 7:59 AM CDT Deacon Peguero AA-C 05/13/2025 8:42 AM Airway Date/Time: 05/13/2025 7:59 AM Location: OR Plan: elective intubation Patient Identity Confirmed by: Armband Airway: not difficult Staffing Performed: PORCELAIN ENAMEL LABORER/CAA Authorized by: Kevin Barron MD Performed by: [...] ABO GROUP A 05/13/2025 7:26 AM CDT [employer] LABORATORY SERVICES -- [facility] RH (D) TYPE Positive 05/13/2025 7:26 AM CDT [facility]ORATORY SERVICES -- [facility] Blood Venipuncture / Unknown 05/13/2025 5:50 AM CDT 05/13/2025 6:06 AM CDT Carrie Hopper MD BLOOD BANK ORDERABLES Final Result [facility] SERVICES -- [facility] CLIA# [id number] [address] [facility] [place], [place] [id number] * (ABNORMAL) CBC WITH DIFFERENTIAL (05/09/2025 1:45 PM CDT) WBC 10.6(H) 4.0 - 9.8 K/uL 05/09/2025 2:21 PM CDT [facility] [employer] [facility] LABORATORY SERVICES - [facility] RBC 4.97 4.50 - 5.40 M/uL 05/09/2025 2:21 PM CDT [employer] LABORATORY SERVICES - [facility] HEMOGLOBIN 15.9 13.6 - 16.5 g/dL 05/09/2025 2:21 PM CDT [employer] LABORATORY SERVICES - [facility] HEMATOCRIT 45.6 40.0 - 48.0 % 05/09/2025 2:21 PM CDT [employer] LABORATORY SERVICES - [facility] MCV 91.8 82.0 - 99.0 fL 05/09/2025 2:21 PM CDT [employer] LABORATORY SERVICES - [facility] MCH 32.0 27.2 - 32.6 pg 05/09/2025 2:21 PM CDT [employer] LABORATORY SERVICES - [facility] MCHC 34.9 31.5 - 35.5 g/dL 05/09/2025 2:21 PM CDT [employer] LABORATORY SERVICES - [facility] RDW 12.3 11.5 - 14.5 % 05/09/2025 2:21 PM CDT [employer] LABORATORY SERVICES - . [facility] RDW-STDEV 40.8 37.1 - 48.7 fL 05/09/2025 2:21 PM CDT [employer] LABORATORY SERVICES - . [facility] PLATELETS 257 140 - 350 K/uL 05/09/2025 2:21 PM CDT [employer] LABORATORY SERVICES - [facility] MPV 8.7(L) 9.3 - 12.4 fL 05/09/2025 2:21 PM CDT [employer] LABORATORY SERVICES - [facility] NEUTROPHILS 55 % 05/09/2025 2:21 PM CDT [employer] LABORATORY SERVICES - [facility] LYMPHOCYTES 33 % 05/09/2025 2:21 PM CDT [employer] LABORATORY SERVICES - [facility] MONOCYTES 10 % 05/09/2025 2:21 PM CDT [employer] LAB[facility]ATORY SERVICES - [facility] EOSINOPHILS 1 % 05/09/2025 2:21 PM CDT [employer] LAB[facility]ATORY SERVICES - [facility] BASOPHILS 1 % 05/09/2025 2:21 PM CDT [employer] LABORATORY SERVICES - [facility] IMMATURE GRANULOCYTES 1 % 05/09/2025 2:21 PM CDT [employer] LABORATORY SERVICES - . [facility] Comment:IG (Immature Granulo cyte) count includes Metamyelocytes, Myelocytes, and Promyelocytes NEUTROPHIL ABSOLUTE 5.79 1.90 - 7.00 K/uL 05/09/2025 2:21 PM CDT [facility] LABORATORY SERVICES - [facility] LYMPHOCYTE ABSOLUTE 3.44 0.70 - 4.50 K/uL 05/09/2025 2:21 PM CDT [facility] LABORATORY SERVICES - . [facility] MONOCYTE ABSOLUTE 1.02 0.10 - 1.30 K/uL 05/09/2025 2:21 PM CDT [facility] LABORATORY SERVICES - [facility] EOSINOPHIL ABSOLUTE 0.12 0.00 - 0.70 K/uL 05/09/2025 2:21 PM CDT [facility] LABORATORY SERVICES - . [facility] BASOPHILS ABSOLUTE 0.11 0.00 - 0.20 K/uL 05/09/2025 2:21 PM CDT [facility] LABORATORY SERVICES - [facility] IMMATURE GRANULOCYTES ABSOLUTE 0.08(H) 0.00 - 0.03 K/uL 05/09/2025 2:21 PM CDT [facility] LABORATORY SERVICES - [facility] Blood Venipuncture / Unknown 05/09/2025 1:45 PM CDT 05/09/2025 2:16 PM CDT Neri Thomson MD HEMATOLOGY ORDERABLES Final Resu lt [facility] Buddy [facility]# [id number] 5 [facility] [place] [address] * PROTIME-INR (05/09/2025 1:45 PM CDT) PROTIME 13.6 12.7 - 15.1 Seconds 05/09/2025 2:31 PM CDT [facility] LABORATORY SERVICES [facility] INR 1.0 0.9 - 1.1 05/09/2025 2:31 PM CDT [facility]ORY [facility] Blood Venipuncture / Unknown 05/09/2025 1:45 PM CDT 05/09/2025 2:16 PM CDT Narrative [facility] - 05/09/2025 2:31 PM CDT INR Therapeutic Range: Adult: 2.0 - 3.0 for pulmonary embolism or prophylaxis against venous thrombosis or systemic embolization. 2.0 - 3.0 for patients with tissue heart valves. 2.5 - 3.5 for patients with mechanical heart valves or post OK. Pediatric (12 years and under): 1.5 - [...] ORDERABLES Final Resu lt Performing Organization Address City/[facility]/ZIP Co de Phone Number [facility] LABORATORY SERVICES - [facility] CLIA# [id number] [address] [place] [address] * TYPE AND SCREEN (05/09/2025 1:45 PM CDT) ABO GROUP A 05/09/2025 4:46 PM CDT [facility] LABORATORY SERVICES -- [facility] RH (D) TYPE Positive 05/09/2025 4:46 PM CDT [facility] [employer] [facility] LABORATORY SERVICES -- [facility] ANTIBODY SCREEN Negative 05/09/2025 4:46 PM CDT [facility] LABORATORY SERVICES -- [facility] Blood Venipuncture / Unknown 05/09/2025 1:45 PM CDT 05/09/2025 2:16 PM CDT Neri Thomson MD BLOOD BANK ORDERABLES Edited Res ult - Final Performing Organization Address City/[facility]/ZIP Co de Phone Number [facility] [id number] [address] [place] [address] * MAGNESIUM LEVEL (05/09/2025 1:45 PM CDT) MAGNESIUM 2.2 1.6 - 2.6 mg/dL 05/09/2025 2:52 PM CDT [facility] LABORATORY SERVICES - [facility] Blood Venipuncture / Unknown 05/09/2025 1:45 PM CDT 05/09/2025 2:16 PM CDT Neri Thomson MD CHEMISTRY ORDERABLES Final Resul t [facility] LABORATORY SERVICES - [facility]# [id number] [address] [place] [address] * BASIC METABOLIC PANEL (05/09/2025 1:45 PM CDT) SODIUM 138 136 - 145 mmol/L 05/09/2025 2:52 PM CDT [facility] LABORATORY SERVICES - [facility] POTASSIUM 4.0 3.5 - 5.0 mmol/L 05/09/2025 2:52 PM T [facility] LABORATORY SERVICES - . [facility] CHLORIDE 103 98 - 107 mmol/L 05/09/2025 2:52 PM T [facility] LABORATORY [facility] - . [place] CO2 24 22 - 29 mmol/L 05/09/2025 2:52 PM T [facility] LABORATORY [facility] - . [facility] CALCIUM 9.0 8.6 - 10.2 mg/dL 05/09/2025 2:52 PM T [facility] LABORATORY [facility] - . [place] BUN 14 6 - 20 mg/dL 05/09/2025 2:52 PM T [facility] LABORATORY [facility] - . [facility] CREATININE 1.17 0.67 - 1.17 mg/dL 05/09/2025 2:52 PM T [facility] LABORATORY [facility] - . [facility] GLUCOSE 80 74 - 99 mg/dL 05/09/2025 2:52 PM [facility] LABORATORY SERVICES - . [facility] GFR >60 >=60 mL/min/1.7 3 sq meter 05/09/2025 2:52 PM T [facility] LABORATORY SERVICES - [facility] Comment:eGFR calculated with 2020 CKD-EPI equation. Vegetarian diet, extremely high or low muscle mass, and may affect results. Cystatin C with Glomerular Filtration Rate is a suitable alternative for these patients. ANION GAP 11 8 - 16 mmol/L 05/09/2025 2:52 PM T [facility] LABORATORY SERVICES - [facility] Blood Venipuncture / Unknown 05/09/2025 1:45 PM CDT 05/09/2025 2:16 PM CDT Neri Thomson MD CHEMISTRY ORDERABLES Final Resul t [facility]# [id number] [address] [place] [address] * TELEMETRY REPORT (02/26/2025 2:35 PM CDT) Provider Scanning ECG ORDERABLES Final Result from Last 3 Months Insurance [facility] [id number] Advance Directives For more information, please contact: [phone] * Full Code (Latest Code Status on [...]
--- OUTSIDE RECORDS SUMMARY | 2025-05-20 14:11 | XMS_ITS | Encounter Summary ---
Author Organization [facility] Address [address] [place] [address] Care Team Providers Care Paint Roller Cover Machine Setter Name Role Phone Betty Soriano NP Primary Care Provider [phone] Encounter Details Date Type Department Care Team (Late st Contact Info) Description 11/01/2024 Gradalist Message Enc [facility] Family Medicine [facility] [address] [facility] [address] [place] [phone] Betty Soriano, APPLIED PSYCHOLOGY PROFESSOR [address] [place] [address] [place], [place] [phone] Normal MRI Social History Tobacco Use Types Packs/Day [...] CDT 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 Sexual Orientation Straight 11/11/2021 1: [address] 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 [address] [place] [address] 12/12/2025 12:[address] MACHINE RUNNER - 12/12/2025 12:[address] MACHINE RUNNER Surgery [facility] [place] [address] Bogdan Cardoza MD 3 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
--- OUTSIDE RECORDS SUMMARY | 2025-05-20 14:11 | XMS_ITS | Encounter Summary ---
Author Organization [facility] Address [address] [place] [address] Care Team Providers Care Internal Recruiter Name Role Phone Betty Soriano NP Primary Care Provider [phone] Encounter Details Date Type Department Care Team (Late st Contact Info) Description 06/19/2024 Demo Lessont Message Enc [facility] Family Medicine [facility] [address] [facility] [address] [place] [phone] Betty Soriano, COLORIST [address] [place], [place] [phone] Zepbound Start Social History Tobacco Use Types Packs/Day Years [...] CDT Gender Identity Male 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 Sexual Orientation Straight 11/11/2021 1: 16 PM DRY CELL ASSEMBLY SUPERVISOR documented as of this encounter Plan of Treatment Upcoming Encounters Date Type Department Care Team (Latest Contact Info) Description 06/14/2025 10:40 AM CDT Office Visit [facility] Medical [facility] Multispecialty Care - [address] [place] [address] Mery Winters NP [address] [facility] [address] [address] [place] [address] 12/12/2025 12:26 PM DRY CELL ASSEMBLY SUPERVISOR Hospital Encounter [facility] [place] [address] Bogdna Cardoza MD 3 [facility] [address] [place] [address] 12/12/2025 12:26 PM DRY CELL ASSEMBLY SUPERVISOR - 12/12/2025 12:56 PM DRY CELL ASSEMBLY SUPERVISOR Surgery [facility] [place] [address] Bogdan Cardoza MD 3 [facility] [address] [place] [address] COLONOSCOPY SCREENING Scheduled Procedures Name Priority Associated Diagnoses Date/Ti me COLONOSCOPY SCREENING Screening for colon cancer 12/12/2025 12:26 PM DRY CELL ASSEMBLY SUPERVISOR documented as of this encounter Visit Diagnoses Not on filedocumented in this encounter Additional Health Concerns Infection Onset Date Last Indicated Resolved Time COVID-19 Rule Out 10/09/2024 10/09/2024 10/09/2024 9:41 AM DRY CELL ASSEMBLY SUPERVISOR COVID-19 Confirmed 10/09/2024 10/09/2024 12:33 AM DRY CELL ASSEMBLY SUPERVISOR COVID-19 Rule Out 11/23/2024 11/23/2024 11/23/2024 10:33 AM DRY CELL ASSEMBLY SUPERVISOR Respiratory Rule Out 04/29/2025 04/29/2025 025 11:40 AM CDT Assessment Noted Time PHQ-9 Depression Total Score: 1 01/28/20 9:43 AM CDT documented as of this encounter Care Teams Internal Recruiter Relationship Specialty Start Date End Date Betty Soriano NP [address] [place] [address] PCP - General NURSE PRACTITIONER 01/22/21 documented as of this encounter
--- OUTSIDE RECORDS SUMMARY | 2025-05-20 14:11 | XMS_ITS | Encounter Summary ---
Author Organization [facility] Address 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 * Telephone Encounter [...] Description 06/07/2025 10:00 AM CDT Office Visit [facility] - [address] [place] [address] Gerry King MD [address] [place] [address] 06/27/2025 9:00 AM CDT Office Visit [facility] HEART AND VASCULAR EP AT [facility] [address] [place] [address] Layla Gonzalez NP [facility] [address] [place] [address] documented as of this encounter Visit Diagnoses Not on filedocumented in this encounter
--- OUTSIDE RECORDS SUMMARY | 2025-05-20 14:11 | XMS_ITS | Encounter Summary ---
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 Sexual Orientation Straight 11/11/2021 1: 16 PM TOOL REPAIRER documented as of this encounter Plan of Treatment Upcoming Encounters Date Type Department Care Team (Latest Contact Info) Description 06/14/2025 10:40 AM CDT Office Visit [facility] Medical [facility]pec[facility] - [address], [address] [place] [address] Mery Winters NP [address] [facility] [address] [place] [address] 12/12/2025 12:26 PM TOOL REPAIRER Hospital Encounter [facility] [place] [address] Bogdan Cardoza MD [address] [facility] [address] [address] 12/12/2025 12:26 PM TOOL REPAIRER - 12/12/2025 12:56 PM TOOL REPAIRER [facility] [address] Bogdan Cardoza MD [address] [facility] [address] [address] COLONOSCOPY SCREENING Scheduled Procedures Name Priority Associated Diagnoses Date/Ti me COLONOSCOPY SCREENING Screening for colon cancer 12/12/2025 12:26 PM TOOL REPAIRER documented as of this encounter Visit Diagnoses Not on filedocumented in this encounter Additional Health Concerns Assessment Noted Time PHQ-9 Depression Total Score: 1 01/28/20 21 9:43 AM CDT documented as of this encounter Care Teams Health Therapist Relationship Specialty Start Date End Date Betty Soriano NP [address] [place] [address] PCP - General NURSE PRACTITIONER 01/22/21 documented as of this encounter
--- NOTE | 2025-05-20 14:57 | ECG_ITS ---
Test Date: 2025-05-20 12:23:50 Measurements Intervals [place] Rate: 47 P: -12 VA: 192 QRS: -9 QRSD: 101 T: -4 QT: 417 QTc: 369 Interpretive Statements SINUS BRADYCARDIA OTHERWISE NORMAL ECG No previous ECG available for comparison Electronically Signed On 05-22-2025 07:16:50 CDT by Bowen Golden M.D.
[2025-05-20 15:48] LABS: Troponin I 0.051 ng/mL (0.000-0.034)
== END 2025-05-20 18:09 | disposition short-term general hospital (02) ==
PROVIDERS: Emergency Medicine; Emergency Provider Emergency Medicine; PCP Nurse Practitioner
DX: I25.119 Atherosclerotic heart disease of native coronary artery with unspecified angina pectoris (principal); I48.91 Unspecified atrial fibrillation; I10 Essential (primary) hypertension; I25.2 Old myocardial infarction; E78.00 Pure hypercholesterolemia, unspecified; K21.9 Gastro-esophageal reflux disease without esophagitis; Z95.1 Presence of aortocoronary bypass graft; Z95.5 Presence of coronary angioplasty implant and graft; Z79.82 Long term (current) use of aspirin; Z79.899 Other long term (current) drug therapy; Z79.85 Long-term (current) use of injectable non-insulin antidiabetic drugs; R00.1 Bradycardia, unspecified; R94.31 Abnormal electrocardiogram [ECG] [EKG]; I49.1 Atrial premature depolarization
CPT/HCPCS: 36415; 71046; 80053; 83690; 84484; 85025; 85610; 85730; 93005; 99285; A9270